=== PATIENT | female | born 1945 | race Caucasian/White ===

== ENCOUNTER → 2022-01-31 10:26 | Outpatient (BNVA) | payer OTHER, SELFPAY | PROVIDERS: PCP Family Medicine; Visit Provider Surgery Vascular Surgery | DX: Z13.89 Encounter for screening for other disorder (principal) ==

== ENCOUNTER 2022-03-06 12:48 | Outpatient (REF) | payer OTHER, SELFPAY ==
--- NOTE | ~2022-03-06 | MR_ITS ---
EXAMINATION: MRI BRAIN WITHOUT CONTRAST CLINICAL INFORMATION: Headache and slurred gait. COMPARISON: CT scan of the head 12/17/2018. TECHNIQUE: Multiplanar MR imaging of the brain was performed without contrast. FINDINGS: There is a tiny chronic cortical infarct involving the right occipital lobe and scattered foci of T2 FLAIR signal hyperintensity visualized throughout the periventricular white matter that most likely represent a chronic manifestation of small vessel ischemia. No acute territorial infarct. No pathological magnetic susceptibility artifact. Intracranial vascular flow voids are maintained. There is no intracranial mass effect or midline shift. No abnormal extra-axial collection. Lateral and third ventricles are normal. No hydrocephalus. Midline structures including the cervicomedullary junction are normal. No acute bone marrow signal changes. There is no mastoid or middle ear effusion. There is mild mucosal thickening within the alveolar recess of the left maxillary sinus. Otherwise no active paranasal sinus disease. Globes and orbits are symmetric. MR/MR head/brain wo con IMPRESSION: There is a chronic cortical infarct involving the right occipital lobe and scattered chronic small vessel ischemic changes within the periventricular white matter. No evidence of acute territorial infarct or hemorrhage. No intracranial mass effect or hydrocephalus.
== END 2022-03-06 12:49 | disposition home or self-care (01) ==
LOC: HO.MRI 12:48
PROVIDERS: Visit Provider Family Medicine
DX: R51.9 Headache, unspecified (principal); Z86.73 Personal history of transient ischemic attack (TIA), and cerebral infarction without residual deficits
CPT/HCPCS: 70551

== ENCOUNTER 2022-03-25 14:42 | Outpatient (REF) | payer MEDICARE, SELFPAY ==
[2022-03-25 15:59] LABS: C Reactive Protein 0.78 mg/dL (< or = 0.50)
[2022-03-25 16:25] LABS: Erythrocyte Sedimentation Rate 27 MM/HR (0-20)
== END 2022-03-25 14:43 | disposition home or self-care (01) ==
LOC: HO.LAB 14:42
PROVIDERS: PCP Family Medicine; Visit Provider Psychiatry & Neurology Neurology
DX: R51.9 Headache, unspecified (principal)
CPT/HCPCS: 36415; 82550; 85652; 86140

== ENCOUNTER 2022-08-10 15:00 | Inpatient (IN) | payer MEDICARE, SELFPAY ==
--- NOTE | ~2022-08-10 | CT_ITS ---
EXAMINATION: CT CHEST WITH CONTRAST CLINICAL INFORMATION: Rule out primary or metastatic malignancy COMPARISON: Previous CT of the abdomen and pelvis 08/10/2022 TECHNIQUE: Multidetector volumetric CT imaging of the chest was obtained after the administration of 65 mL of Omnipaque 350 intravenous contrast without immediate adverse reactions. Axial MIP volume rendering provided. Sagittal and coronal reformatted images were obtained. This CT examination was performed using dose optimization techniques as appropriate, variously including the following: *Automated exposure control *Adjustment of mA and/or kV according to patient size (this includes techniques or standardized protocols for targeted exams where dose is matched to indication/reason for exam; i.e. extremities or head) *Use of iterative reconstruction technique DLP: 108 mGy-cm FINDINGS: LUNGS: There is evidence of emphysema. There is left apical pleural calcification and mild thickening. There are areas of scarring or atelectasis in the posterior right upper lobe axial image 33 series 7 and adjacent to the major fissure axial image 80. There is bilateral lower lobe subsegmental atelectasis adjacent to the small pleural effusion. There is a 3 mm peripheral or subpleural right middle lobe nodule axial image 137 series 7. MEDIASTINUM: The mediastinum is normal. CORONARY ARTERY CALCIFICATION: Mild PLEURA: There are small bilateral pleural effusions. AXILLA: No lymphadenopathy. UPPER ABDOMEN: Gallbladder wall calcification. Atherosclerotic disease. OSSEOUS STRUCTURES: Degenerative changes of the spine. No fracture or bone lesion. CT/CT chest w IV con IMPRESSION: Small bilateral pleural effusions and bilateral lower lobe subsegmental atelectasis. Other areas of scarring or subsegmental atelectasis in the right upper lobe. 3 mm right middle lobe nodule. Emphysema. Fleischner guidelines were followed.
[2022-08-10 15:28] VITALS: BP 152/60; BP 157/98; PULSE 82; PULSE 86; RESP 18; TEMP 37; O2SAT 97; O2SAT 99; BMI 22.4
--- OUTSIDE RECORDS SUMMARY | 2022-08-10 15:50 | XMS_ITS | Continuity of Care Document ---
:1945 Author Organization [facility] Address [address] [place] [address]
[2022-08-10 16:20] LABS: MANUAL DIFF FLAG NO
[2022-08-10 16:21] LABS: Basophils Percent Auto 0.4 % (0-2); Eosinophils Absolute Auto 0.1 X10*3/uL (0.0-0.4); Eosinophils Percent Auto 0.8 % (0-4); Hematocrit 34.8 % (37.0-47.0); Hemoglobin 11.1 g/dl (12.0-16.0); Imm Gran Abs Auto 0.04 X10*3/uL (0.00-0.03); Imm Gran Pct Auto 0.4 % (0.0-0.4); Lymphocytes Absolute Auto 1.7 X10*3/uL (1.2-4.9); Mean Corpuscular HGB Conc 31.9 g/dl (31.0-35.0); Mean Corpuscular Hemoglobin 27.9 pg (27.0-33.0); Mean Corpuscular Volume 87.4 fL (80.0-98.0); Monocytes Absolute Auto 0.9 X10*3/uL (0.1-1.2); Monocytes Percent Auto 8.5 % (2-11); Neutrophils Percent Auto 73.9 % (45-73); Platelet Count 220 X10*3/uL (160-400); Red Blood Count 3.98 X10*6/uL (4.20-5.50); Red Cell Distribution Width 14.4 % (11.0-16.0); White Blood Count 10.8 X10*3/uL (4.8-10.8)
[2022-08-10 16:24] VITALS: BP 152/60; PULSE 82; RESP 18; TEMP 37; O2SAT 97
[2022-08-10 16:36] LABS: COVID-19 Test Negative (Negative)
[2022-08-10 16:45] LABS: Alanine Aminotransferase 6 U/L (0-31); Albumin Level 3.4 g/dL (3.5-5.0); Alkaline Phosphatase 66 U/L (39-117); Anion Gap 16 (12-20); Aspartate Amino Transferase 16 U/L (5-31); Bilirubin Total 0.5 mg/dL (0.0-1.0); Blood Urea Nitrogen 20 mg/dL (9-16); Calcium 8.5 mg/dL (8.4-10.2); Carbon Dioxide 22 mmol/L (22-29); Chloride 102 mmol/L (96-108); Creatinine Clr Calc Pharmacy 36.6; Estimated Glomerular Filt Rate 41; Glucose Random 85 mg/dL (60-115); Magnesium 1.9 mg/dL (1.6-2.6); Potassium 3.7 mmol/L (3.3-5.1); Sodium 136 mmol/L (135-145)
[2022-08-10 16:52] LABS: Troponin-I High Sensitivity 6.7 ng/L (<3.5-17.0)
[2022-08-10] MEDS: 0.9 % Sodium Chloride 1,000 ML 999 ML IV (17:18)
[2022-08-10] MEDS: ondansetron HCL 4 MG/2 ML VIAL IVPUSH ×2 (17:18→21:39)
--- NOTE | 2022-08-10 17:32 | ED.NAVMDI ---
HPI - Nausea/Vomiting/Diarrhea General Chief complaint: Nausea/Vomiting/Diarrhea Stated complaint: NVD Time Seen by Provider: 08/10/22 15:38 Source: patient Mode of arrival: EMS Limitations: no limitations History of Present Illness HPI Narrative: Patient presents to the emergency department for evaluation of nausea vomiting and diarrhea. This is been reportedly ongoing and intermittent since 07/23/2022. However today she felt that the symptoms were significantly worsening. States that yesterday she had multiple episodes of diarrhea as well as vomiting. She is also having generalized weakness with this. Denies any bloody or dark stools, denies any bloody or coffee-ground emesis. Patient's daughter gave her Imodium today and that seems to have calmed the diarrhea. She denies fevers, chills, chest pain, palpitations, shortness of breath, difficulty breathing, dysuria, urinary frequency/urgency/hesitancy, hematuria, numbness or tingling of the extremities. Patient denies any past history of colonoscopy. Denies any family history of colon cancer, however does report that her father had prostate cancer. Related Data Home Medications Medication Instructions Recorded Confirmed aspirin 81 mg tablet,delayed 81 mg DAILY 08/10/22 08/10/22 release Allergies Allergy/AdvReac Type Severity Reaction Status Date / Time clopidogrel [From PLAVIX] Allergy Unknown INTERNAL Unverified 07/20/20 16:12 BLEEDING Bfgoixh-AQV-AvQ Reductase Allergy Unknown LEG Unverified 07/20/20 16:12 Inhibitor STIFFNESS [[id number] REDUCTASE INHIBITOR] Review of Systems Review of Systems: Constitutional : No Weight loss, No Fever, No Chills ENT/Mouth :? No sore throat, No Rhinorrhea Eyes: No Swelling, No Redness Cardiovascular : No Chest Pain, No SOB, No Edema Respiratory : No Cough, No Sputum, No Wheezing Gastrointestinal : Positive Nausea, Positive Vomiting, positive Diarrhea, positive abdominal pain, No Hematochezia, No Melena Genitourinary : No Dysuria, No Urinary Frequency, No Hematuria, No Urgency? Musculoskeletal : No joint pain, No Myalgias, No Joint Swelling Skin : No Skin Lesions, No rash Neuro : No Weakness, No Numbness, No Dizziness, No Headache Psych : No Anxiety/Panic, No Depression Heme/Lymph: No Bruising, No Lymphadenopathy Endocrine : No Polyuria, No Polydipsia Yes all other systems are reviewed and are negative PMFSH Past Medical History Attestation statement: The following information was validated with the patient. Source: old records reviewed Social History Social History Advance Directives: No Advance Directives Information Provided: Yes Physical Exam Vital Signs: Vital Signs: Last Vital Signs Temp 98.6 F 08/10/22 16:24 Pulse 74 08/10/22 21:10 Resp 16 08/10/22 21:10 BP 127/64 08/10/22 21:10 Pulse Ox 95 08/10/22 21:10 O2 Del Method 08/10/22 21:10 BMI result Body Mass Index 22.4 Appearance: Alert.?Oriented to person, place and time. No acute distress.?Normal affect. Eyes: Pupils equal, round and reactive to light.? ENT: Pharynx normal.?? Neck: Normal inspection.? Neck supple.?? CVS: Heart sounds normal. Normal heart rate and rhythm.? Pulses normal.?? Respiratory: No respiratory distress.? Lung sounds clear to auscultation bilaterally?? Abdomen: Soft with right upper quadrant epigastric tenderness, as well as left lower quadrant tenderness upon palpation. Normoactive bowel sounds. No pulsatile mass.?? Skin: Skin warm and dry.? Normal skin color.? ? Extremities: No lower extremity edema.? Neuro: Moves all extremities spontaneously. Sensation intact bilaterally. CN II-XII intact. No focal neuro deficits. Ambulates with normal steady gait. Course Course Course Narrative: Patient is a 77-year-old female with a past medical history of cholelithiasis, carotid artery stenosis, history of CVA, hypercholesterolemia, osteoporosis. She presents to the emergency department for evaluation of nausea vomiting and diarrhea. She is overall well-appearing, vital signs stable. Mildly hypertensive but she is afebrile and without tachycardia, hypoxia, or tachypnea. She has significant tenderness upon palpation of abdomen during physical examination. Will obtain CBC to evaluate for leukocytosis/ anemia, CMP and lipase to evaluate for abnormal electrolytes /abnormal renal function/ abnormal hepatic/biliary function, EKG and troponin to evaluate for ischemia/ACS, CT of the abdomen and pelvis to exclude cholecystitis, bowel obstruction, diverticulitis, or additional intra-abdominal pathology, and Urinalysis. Will trial Zofran IV for nausea, morphine IV for pain, and 1 L normal saline IV. Reevaluation(s) Reevaluation #1: CBC reveals no leukocytosis, there is a mild normocytic anemia. CMP is overall unremarkable. Troponin 6.0, EKG reveals normal sinus rhythm, no ST elevation, no ST depression, T-wave inversion in inferior and anterior leads nonspecific at this time. Only comparison is from December [address] elevations in V4-V6 were present, not appears though patient was transferred to [facility], she was admitted inpatient to telemetry floor she was asymptomatic outside of abdominal pain at that time. Suspect that the T-wave inversions noticed at this time are from prior cardiac event, as opposed to acute ACS, No active chest pain at this time, however will obtain delta troponin. CT of the abdomen and pelvis reveals lobular diffuse masslike thickening of the cecum and ileocecal valve causing a partial small bowel obstruction with concern for colonic neoplasm, and patient developing a porcelain gallbladder. Consult and with General surgery on-call Dr. Linares, who recommends GI consultation and hospital admission, advised that if patient has vomiting and NG tube should be placed. At this time she has not had any vomiting today by her report, therefore will defer NG tube at this time. Patient and daughter were updated on the findings at this time. Time: 19:02 Reevaluation #2: Spoke with hospitalist, patient admitted to Medicine Service under Dr. Mac. MDM - Nausea/Vomiting/Diarrhea Medical Records Attestation: I reviewed the patient's medical records. Lab Data Attestation: I reviewed the patient's lab results. Result diagrams: 08/10/22 16:15 08/10/22 16:15 Labs: Lab Results 08/10/22 08/10/22 08/10/22 Range/Units 16:15 16:15 16:15 WBC 10.8 (4.8-10.8) X10*3/uL RBC 3.98 L (4.20-5.50) X10*6/uL Hgb 11.1 L (12.0-16.0) g/dl Hct 34.8 L (37.0-47.0) % MCV 87.4 (80.0-98.0) fL MCH 27.9 (27.0-33.0) pg MCHC 31.9 (31.0-35.0) g/dl RDW 14.4 (11.0-16.0) % Plt Count 220 (160-400) X10*3/uL MPV 10.0 (9.4-12.3) fL Immature Gran % (Auto) 0.4 (0.0-0.4) % Neut % (Auto) 73.9 H (45-73) % Lymph % (Auto) 16.0 L (20-40) % [place] % (Auto) 8.5 (2-11) % Eos % (Auto) 0.8 (0-4) % Baso % (Auto) 0.4 (0-2) % Lymph # (Auto) 1.7 (1.2-4.9) X10*3/uL [place] # (Auto) 0.9 (0.1-1.2) X10*3/uL Eos # (Auto) 0.1 (0.0-0.4) X10*3/uL Baso # (Auto) 0.0 (0.0-0.2) X10*3/uL Abs Immat Gran (auto) 0.04 H (0.00-0.03) X10*3/uL Absolute Neuts (auto) 8.0 (2.0-8.3) x10*3/uL Absolute Nucleated RBC 0.000 (0.0-0.012) X10*3/uL Nucleated RBC % (auto) 0.0 (0.0-0.2) /100WBC Sodium 136 (135-145) mmol/L Potassium 3.7 (3.3-5.1) mmol/L Chloride 102 (96-108) mmol/L Carbon Dioxide 22 (22-29) mmol/L Anion Gap 16 (12-20) BUN 20 H (9-16) mg/dL Creatinine 1.27 (0.5-1.4) mg/dL Estim Creat Clear Calc 36.6 Estimated GFR 41 Random Glucose 85 (60-115) mg/dL Calcium 8.5 (8.4-10.2) mg/dL Magnesium 1.9 (1.6-2.6) mg/dL Total Bilirubin 0.5 (0.0-1.0) mg/dL AST 16 (5-31) U/L ALT 6 (0-31) U/L Alkaline Phosphatase 66 (39-117) U/L Troponin I High Sens (<3.5-17.0) ng/L Total Protein 6.0 L (6.5-8.0) g/dL Albumin 3.4 L (3.5-5.0) g/dL Prealbumin 11.0 L (20-40) mg/dL Lipase 8 (8-78) U/L COVID-19 ([facility]) Negative (Negative) COVID-19 Clin Com See Note 08/10/22 08/10/22 Range/Units 16:15 19:03 WBC (4.8-10.8) X10*3/uL RBC (4.20-5.50) X10*6/uL Hgb (12.0-16.0) g/dl Hct (37.0-47.0) % MCV (80.0-98.0) fL MCH (27.0-33.0) pg MCHC (31.0-35.0) g/dl RDW (11.0-16.0) % Plt Count (160-400) X10*3/uL MPV (9.4-12.3) fL Immature Gran % (Auto) (0.0-0.4) % Neut % (Auto) (45-73) % Lymph % (Auto) (20-40) % [place] % (Auto) (2-11) % Eos % (Auto) (0-4) % Baso % (Auto) (0-2) % Lymph # (Auto) (1.2-4.9) X10*3/uL [place] # (Auto) (0.1-1.2) X10*3/uL Eos # (Auto) (0.0-0.4) X10*3/uL Baso # (Auto) (0.0-0.2) X10*3/uL Abs Immat Gran (auto) (0.00-0.03) X10*3/uL Absolute Neuts (auto) (2.0-8.3) x10*3/uL Absolute Nucleated RBC (0.0-0.012) X10*3/uL Nucleated RBC % (auto) (0.0-0.2) /100WBC Sodium (135-145) mmol/L Potassium (3.3-5.1) mmol/L Chloride (96-108) mmol/L Carbon Dioxide (22-29) mmol/L Anion Gap (12-20) BUN (9-16) mg/dL Creatinine (0.5-1.4) mg/dL Estim Creat Clear Calc Estimated GFR Random Glucose (60-115) mg/dL Calcium (8.4-10.2) mg/dL Magnesium (1.6-2.6) mg/dL Total Bilirubin (0.0-1.0) mg/dL AST (5-31) U/L ALT (0-31) U/L Alkaline Phosphatase (39-117) U/L Troponin I High Sens 6.7 8.5 (<3.5-17.0) ng/L Total Protein (6.5-8.0) g/dL Albumin (3.5-5.0) g/dL Prealbumin (20-40) mg/dL Lipase (8-78) U/L COVID-19 ([facility]) (Negative) COVID-19 Clin Com Imaging Data CT scan - abdomen: Radiologist's impression: CT/CT abdomen pelvis w IV con IMPRESSION: ? 1. Lobular diffuse masslike thickening of the cecum and ileocecal valve causing a partial small bowel obstruction.? This is concerning for colonic neoplasm. ? 2. Developing porcelain gallbladder. ECG Data Attestation: I personally reviewed and interpreted this ECG as follows: ECG interpretation date: 08/10/22 Prior ECG tracings: available for review Interpretation: Rate: 75 Rhythm:? Normal sinus rhythm Normal P waves.? Normal ULISES.?? Normal QRS complex.?? ST T wave :??T-wave inversion in anterior lead V3-V4 visual inferior lead II, III, aVF qTC: 435 prior studies: December 2018? The study has been interpreted contemporaneously by me. Discharge Plan Discharge Clinical Impression: Partial small bowel obstruction, Porcelain gallbladder Patient Disposition: Admitted As Inpatient
[2022-08-10] MEDS: iohexoL 350 MG/ML 100 ML INFUS..BTL IV (17:48)
[2022-08-10 18:23] VITALS: RESP 18
[2022-08-10 18:23] LABS: Lipase 8 U/L (8-78)
[2022-08-10] MEDS: Morphine Sulfate 4 MG/ML CARTRIDGE 2 MG IVPUSH (18:23)
--- NOTE | 2022-08-10 18:43 | PC.NURSE ---
pt requests friend Sudha Berumen to be called ([phone]) with updates.
[2022-08-10 19:29] LABS: Troponin-I High Sensitivity 8.5 ng/L (<3.5-17.0)
[2022-08-10 21:06] VITALS: BP 127/64; PULSE 74; RESP 16; O2SAT 95
[2022-08-10 21:10] VITALS: BP 127/64; PULSE 74; RESP 16; O2SAT 95
--- NOTE | 2022-08-10 21:11 | PM.IMHP ---
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 peripheral artery ds s/p left carotid endarterectomy presents to the hospital with complaints of loss of appetite as well as nausea vomiting. Patient reports that her symptoms started on the 23 of July where she started having significant nausea, and dry heaving and inability to eat. She reports that she was mostly on liquids water and sometimes some wall falls but unable to eat much else due to the significant nausea. She reports that her symptoms slightly improved but returned significantly worse on day of presentation with nausea and several episodes of vomiting the night prior, she reports generalized diffuse abdominal pain, reports no constipation and has been passing small amount of stool, denies having any fever chills, reports no history of colonoscopy. Reports family history of prostate cancer in her father. Reports significant weight loss as a result of her inability to eat as well as generalized weakness that was getting worse and worse every day. Patient denies any headache no change in vision, no chest pain, no palpitations, no urinary symptoms and no extremity edema. On arrival to the ED patient hemodynamically stable with slightly elevated blood pressure Labs are significant for WBC count of 10.8, hemoglobin of 11.1, hematocrit 34.8, labs otherwise unremarkable Abdomen pelvic CT shows lobular diffuse masslike thickening of the cecum and ileocecal valve causing a partial small-bowel obstruction, this is concerning for colonic neoplasm. Developing porcelain gallbladder General surgery was consulted by ED, recommended GI evaluation Review of Systems Review of Systems: Yes all other systems are reviewed and are negative [facility] Medical History (Updated 08/11/22 @ 06:54 by Jayro Mac MD) Blind right eye CAD (coronary artery disease) (11/07/08) History of cholelithiasis History of CVA (cerebrovascular accident) HLD (hyperlipidemia) (08/17/08) Family History (Updated 08/11/22 @ 06:53 by Jayro Mac MD) Father Prostate cancer Surgical History (Updated 08/11/22 @ 06:53 by Jayro Mac MD) No pertinent past surgical history Social History (Updated 08/11/22 @ 06:53 by Jayro Mac MD) Alcohol intake: former Patient Tobacco Use Status: Former Tobacco user Use of substances other than those prescribed or required for medical reasons: No Advance Directives: No Advance Directives Information Provided: Yes Meds Allergies Allergy/AdvReac Type Severity Reaction Status Date / Time clopidogrel [From PLAVIX] Allergy Unknown INTERNAL Unverified 07/20/20 16:12 BLEEDING Wftoqri-UEK-GpQ Reductase Allergy Unknown LEG Unverified 07/20/20 16:12 Inhibitor STIFFNESS [[id number] REDUCTASE INHIBITOR] Active Medications: Current Medications Acetaminophen (Acetaminophen 325 Mg Tablet) 650 mg PO Q6H PRN PRN Reason: Pain, Mild (Pain Scale 1-3) Heparin Sodium (Porcine) (Heparin Sodium,Porcine 5,000 Unit/Ml Vial) 5,000 unit SUBCUT Q12H ROBIN Lactated Ringer's (Lr) 1,000 mls @ 100 mls/hr IVCONT .Q10H ROBIN Morphine Sulfate (Morphine Sulfate 4 Mg/Ml Cartridge) 4 mg IVPUSH Q4H PRN; Protocol PRN Reason: Pain, Severe (Pain Scale 7-10) Ondansetron HCl (Ondansetron Hcl 4 Mg/2 Ml Vial) 4 mg IVPUSH Q8H PRN PRN Reason: Nausea and Vomiting Pharmacy Consult (Consult Rx Perform Med Rec) 1 each MISCELLANE ONCE PRN PRN Reason: Consult order Sodium Chloride (0.9 % Sodium Chloride Flush 3 Ml Syringe) 3 ml IVFLUSH QSHIFT [facility] Home Medications Medication Instructions Recorded Confirmed Last Taken Type aspirin 81 mg tablet,delayed 81 mg DAILY 08/10/22 08/10/22 Unknown History release Physical Exam Vital Signs and Narrative: Vital Signs: Last Vital Signs Temp 98.6 F 08/10/22 16:24 Pulse 74 08/10/22 21:10 Resp 16 08/10/22 21:10 BP 127/64 08/10/22 21:10 Pulse Ox 95 08/10/22 21:10 O2 Del Method 08/10/22 21:10 BMI result Body Mass Index 22.4 Results Labs CBC and Chem 7: 08/11/22 06:20 08/10/22 16:15 Labs: Laboratory Results - last 24 hr 08/10/22 08/10/22 08/10/22 16:15 16:15 16:15 MCV 87.4 MCH 27.9 MCHC 31.9 RDW 14.4 Plt Count 220 MPV 10.0 Immature Gran % (Auto) 0.4 Neut % (Auto) 73.9 H Lymph % (Auto) 16.0 L [place] % (Auto) 8.5 Eos % (Auto) 0.8 Baso % (Auto) 0.4 Lymph # (Auto) 1.7 [place] # (Auto) 0.9 Eos # (Auto) 0.1 Baso # (Auto) 0.0 Abs Immat Gran (auto) 0.04 H Absolute Neuts (auto) 8.0 Absolute Nucleated RBC 0.000 Nucleated RBC % (auto) 0.0 Anion Gap 16 Estim Creat Clear Calc 36.6 Estimated GFR 41 Random Glucose 85 Calcium 8.5 Magnesium 1.9 Total Bilirubin 0.5 AST 16 ALT 6 Alkaline Phosphatase 66 Troponin I High Sens Total Protein 6.0 L Albumin 3.4 L Lipase 8 COVID-19 ([facility]) Negative COVID-19 Clin Com See Note 08/10/22 08/10/22 16:15 19:03 MCV MCH MCHC RDW Plt Count MPV Immature Gran % (Auto) Neut % (Auto) Lymph % (Auto) [place] % (Auto) Eos % (Auto) Baso % (Auto) Lymph # (Auto) [place] # (Auto) Eos # (Auto) Baso # (Auto) Abs Immat Gran (auto) Absolute Neuts (auto) Absolute Nucleated RBC Nucleated RBC % (auto) Anion Gap Estim Creat Clear Calc Estimated GFR Random Glucose Calcium Magnesium Total Bilirubin AST ALT Alkaline Phosphatase Troponin I High Sens 6.7 8.5 Total Protein Albumin Lipase COVID-19 ([facility]) COVID-19 Clin Com Imaging Radiologist's Impressions: Impressions Abdomen/Pelvis CT 08/10/22 17:53 IMPRESSION: 1. Lobular diffuse masslike thickening of the cecum and ileocecal valve causing a partial small bowel obstruction. This is concerning for colonic neoplasm. 2. Developing porcelain gallbladder. Fleischner guidelines were followed. Assessment and Plan (1) Partial small bowel obstruction: Status: Acute (2) Colonic mass: Status: Acute (3) Anorexia: Status: Acute (4) Nausea & vomiting: Status: Acute (5) Porcelain gallbladder: Status: Acute Plan 89-year-old female with past medical history of CAD, hypercholesterolemia, history of cholelithiasis presents to the hospital with complaints of nausea vomiting, and and decreased oral intake found to have following # partial small bowel obstruction - likely secondary to mass like colonic mass concerning for malignancy - patient has no history colonoscopies in the past - at this time will make NPO - GI consult - general surgery consulted # colonic mass - concerning for malignancy - GI consulted # acute anorexia - secondary to above - IV fluids - GI on consult # nausea vomiting - secondary to small-bowel obstruction - will treat with IV fluid - antiemetics # porcelain gallbladder - history of cholelithiasis - no evidence of infection - general surgery consult Patient reports taking no other medication but aspirin, in regards to her documented history of CAD, as well hypercholesterolemia, this time will monitor DVT prophylaxis: Heparin subQ Pt will require a minimum 2 night hospital stay for further evaluation of colonic mass, as well as partial small-bowel obstruction as well as intractable nausea and vomiting as well as anorexia this cannot be managed outpatient Quality Stroke Does the patient have a stroke diagnosis?: No VTE Prior VTE?: No VTE Risk Level:: Medical - moderate - high VTE Device Contraindication: Treatment Not Indicated VTE Drug Contraindication: N/A - Med Ordered
--- NOTE | 2022-08-10 21:20 | PC.NURSE ---
Nurse to nurse report given to karon Amaral RN. Patient to be transferred to overflow unit. Dr. Mac notified, medication reconciliation completed.
[2022-08-10 21:32] VITALS: BP 134/59; PULSE 74; RESP 18; TEMP 36.3; O2SAT 97
[2022-08-10] MEDS: Morphine Sulfate 4 MG/ML CARTRIDGE IVPUSH (21:38)
[2022-08-10] MEDS: Heparin Sodium,Porcine 5,000 UNIT/ML VIAL 5000 UNIT SUBCUT (21:38)
[2022-08-10] MEDS: Lactated Ringers 1,000 ML 100 ML IVCONT (21:38)
--- NOTE | 2022-08-10 22:36 | PC.NURSE ---
patient alert and oriented x4. stated she was having nausea with abd pain. prn zofran and morphine admin with positive effect. instructed on use of call guzman, verbalized understanding. will continue to do hourly rounds..
[2022-08-11] VITALS (7 sets, daily range): BP systolic 120–167; BP diastolic 63–80; PULSE 72–80; RESP 16–19; TEMP 36.4–37.1; O2SAT 92–95
[2022-08-11] MEDS: ondansetron HCL 4 MG/2 ML VIAL IVPUSH ×2 (05:07→12:28)
[2022-08-11 06:25] LABS: MANUAL DIFF FLAG NO
[2022-08-11 06:33] LABS: Basophils Absolute Auto 0.1 X10*3/uL (0.0-0.2); Basophils Percent Auto 0.7 % (0-2); Eosinophils Absolute Auto 0.1 X10*3/uL (0.0-0.4); Eosinophils Percent Auto 1.5 % (0-4); Hematocrit 34.8 % (37.0-47.0); Hemoglobin 10.9 g/dl (12.0-16.0); Imm Gran Abs Auto 0.01 X10*3/uL (0.00-0.03); Imm Gran Pct Auto 0.1 % (0.0-0.4); Lymphocytes Absolute Auto 1.2 X10*3/uL (1.2-4.9); Lymphocytes Percent Auto 15.4 % (20-40); Mean Corpuscular HGB Conc 31.3 g/dl (31.0-35.0); Mean Corpuscular Hemoglobin 27.7 pg (27.0-33.0); Mean Corpuscular Volume 88.3 fL (80.0-98.0); Mean Platelet Volume 10.4 fL (9.4-12.3); Monocytes Absolute Auto 0.7 X10*3/uL (0.1-1.2); Monocytes Percent Auto 9.5 % (2-11); Neutrophils Absolute Auto 5.5 x10*3/uL (2.0-8.3); Neutrophils Percent Auto 72.8 % (45-73); Platelet Count 194 X10*3/uL (160-400); Red Blood Count 3.94 X10*6/uL (4.20-5.50); Red Cell Distribution Width 14.6 % (11.0-16.0); White Blood Count 7.5 X10*3/uL (4.8-10.8)
[2022-08-11 06:50] LABS: Anion Gap 13 (12-20); Blood Urea Nitrogen 14 mg/dL (9-16); Calcium 8.5 mg/dL (8.4-10.2); Carbon Dioxide 24 mmol/L (22-29); Chloride 106 mmol/L (96-108); Creatinine Clr Calc Pharmacy 38.4; Estimated Glomerular Filt Rate 43; Glucose Random 81 mg/dL (60-115); Potassium 3.8 mmol/L (3.3-5.1); Sodium 139 mmol/L (135-145)
--- NOTE | 2022-08-11 07:13 | PC.NURSE ---
Assumed care for this pt at this time
--- NOTE | 2022-08-11 07:19 | PHA.MEDREC ---
Pharmacy Consult ? Medication Reconciliation Pharmacy has completed the medication reconciliation.
[2022-08-11] MEDS: Lactated Ringers 1,000 ML 100 ML IVCONT ×2 (08:46→17:13)
[2022-08-11] MEDS: Heparin Sodium,Porcine 5,000 UNIT/ML VIAL 5000 UNIT SUBCUT ×2 (08:50→23:43)
--- NOTE | 2022-08-11 09:51 | PM.CNGS ---
History of Present Illness Consult details Consult date: 08/11/22 Reason for consult: abdominal pain Narrative: The patient is a 77-year-old woman with a history of vascular disease who is admitted to the hospitalist service and seen by request of the emergency room staff because of abdominal bloating and vomiting. CT of the abdomen and pelvis showed concern for a cecal mass and partial small-bowel obstruction. Patient reports she has never had a colonoscopy. She reports that on July 23, she had acute onset of abdominal pain with nausea and vomiting and diarrhea. This improved over several days but then returned yesterday and she came to the emergency department. She is unaware of any personal or family history of GI malignancy but does endorse a family history of melanoma and lymphoma, as well as cardiac disease. She reports weight loss but is unable to quantify the amount of weight loss; she does note that her appetite has been down over the past few weeks. Review of Systems Review of Systems: Yes all other systems are reviewed and are negative Constitutional: Constitutional: Reports as per [facility] Past Medical History Medical History (Updated 08/11/22 @ 09:57 by Sagar Linares MD) Blind right eye CAD (coronary artery disease) (11/07/08) History of cholelithiasis History of CVA (cerebrovascular accident) HLD (hyperlipidemia) (08/17/08) Family History Family History (Updated 08/11/22 @ 06:53 by Jayro Mac MD) Father Prostate cancer Surgical History Surgical History (Updated 08/11/22 @ 06:53 by Jayro Mac MD) No pertinent past surgical history Social History Social History (Updated 08/11/22 @ 06:53 by Jayro Mac MD) Alcohol intake: former Patient Tobacco Use Status: Former Tobacco user Use of substances other than those prescribed or required for medical reasons: No Advance Directives: No Advance Directives Information Provided: Yes Meds Allergies Allergy/AdvReac Type Severity Reaction Status Date / Time clopidogrel [From PLAVIX] Allergy Unknown INTERNAL Unverified 07/20/20 16:12 BLEEDING [id number] Reductase Allergy Unknown LEG Unverified 07/20/20 16:12 Inhibitor STIFFNESS [[id number] REDUCTASE INHIBITOR] Active Medications: Current Medications Acetaminophen (Acetaminophen 325 Mg Tablet) 650 mg PO Q6H PRN PRN Reason: Pain, Mild (Pain Scale 1-3) Heparin Sodium (Porcine) (Heparin Sodium,Porcine 5,000 Unit/Ml Vial) 5,000 unit SUBCUT Q12H [facility] Last Admin: 08/11/22 08:50 Dose: 5,000 unit Lactated Ringer's (Lr) 1,000 mls @ 100 mls/hr IVCONT .Q10H [facility] Last Admin: 08/11/22 08:46 Dose: 100 mls/hr Morphine Sulfate (Morphine Sulfate 4 Mg/Ml Cartridge) 4 mg IVPUSH Q4H PRN; Protocol PRN Reason: Pain, Severe (Pain Scale 7-10) Last Admin: 08/10/22 21:38 Dose: 4 mg Ondansetron HCl (Ondansetron Hcl 4 Mg/2 Ml Vial) 4 mg IVPUSH Q8H PRN PRN Reason: Nausea and Vomiting Last Admin: 08/11/22 05:07 Dose: 4 mg Pharmacy Consult (Consult Rx Perform Med Rec) 1 each MISCELLANE ONCE PRN PRN Reason: Consult order Sodium Chloride (0.9 % Sodium Chloride Flush 3 Ml Syringe) 3 ml IVFLUSH QSHIFT [facility] Last Admin: 08/11/22 08:47 Dose: Not Given Home Medications Medication Instructions Recorded Confirmed Last Taken Type aspirin 81 mg tablet,delayed 81 mg DAILY 08/10/22 08/10/22 Unknown History release Physical Exam Vital Signs: Vital Signs: Last Vital Signs Temp 98.2 F 08/11/22 08:32 Pulse 78 08/11/22 08:32 Resp 16 08/11/22 08:32 BP 150/63 H 08/11/22 08:32 Pulse Ox 95 08/11/22 08:32 O2 Del Method 08/11/22 08:32 BMI result Body Mass Index 22.4 The patient is non-toxic & in good spirits NC/AT, PERRLA, EOMI Mood, affect & judgment all appear appropriate Sclera anicteric conjunctiva pink and moist Oropharynx is clear with no aphthous ulcers, Mallampati class 2, mucous membranes moist Neck is supple with no masses, adenopathy or bruits Heart is regular, normal S1-S2 with 2-3/6 WARD murmur Lungs are clear and equal anteriorly with no audible wheezing, rubs or dullness to percussion Abdomen is overweight with no demonstrable hernias. No HSM, rebound, rigidity, guarding, masses or bruits are present. Rectal exam is deferred Skin has good turgor and is free of rashes Extremities free of cyanosis clubbing edema Results Labs Result diagrams: 08/11/22 06:20 08/11/22 06:20 Labs: Abnormal lab results 08/10/22 08/10/22 08/11/22 Range/Units 16:15 16:15 06:20 RBC 3.98 L 3.94 L (4.20-5.50) X10*6/uL Hgb 11.1 L 10.9 L (12.0-16.0) g/dl Hct 34.8 L 34.8 L (37.0-47.0) % Neut % (Auto) 73.9 H (45-73) % Lymph % (Auto) 16.0 L 15.4 L (20-40) % Abs Immat Gran (auto) 0.04 H (0.00-0.03) X10*3/uL BUN 20 H (9-16) mg/dL Total Protein 6.0 L (6.5-8.0) g/dL Albumin 3.4 L (3.5-5.0) g/dL Prealbumin 11.0 L (20-40) mg/dL Short CBC 08/10/22 08/11/22 Range/Units 16:15 06:20 WBC 10.8 7.5 (4.8-10.8) X10*3/uL Hgb 11.1 L 10.9 L (12.0-16.0) g/dl Hct 34.8 L 34.8 L (37.0-47.0) % Plt Count 220 194 (160-400) X10*3/uL BMP 08/10/22 08/11/22 16:15 06:20 Sodium 136 139 Potassium 3.7 3.8 Chloride 102 106 Carbon Dioxide 22 24 BUN 20 H 14 Creatinine 1.27 1.21 Calcium 8.5 8.5 Liver Function 08/10/22 Range/Units 16:15 Total Bilirubin 0.5 (0.0-1.0) mg/dL AST 16 (5-31) U/L ALT 6 (0-31) U/L Alkaline Phosphatase 66 (39-117) U/L Albumin 3.4 L (3.5-5.0) g/dL All other labs normal. CEA is markedly elevated at [address] scan report/results: report reviewed and image reviewed CT scan - pelvis: report reviewed and image reviewed Assessment and Plan (1) Partial small bowel obstruction: Status: Acute (2) Colonic mass: Status: Acute (3) Anorexia: Status: Acute (4) Nausea & vomiting: Status: Acute (5) Porcelain gallbladder: Status: Acute (6) Heart murmur: Status: Acute (7) HLD (hyperlipidemia): Status: Acute (8) History of CVA (cerebrovascular accident): Status: Acute (9) CAD (coronary artery disease): Status: Acute (10) Anticoagulated: Status: Acute Plan Cecal mass and elevated CEA are consistent with malignancy. By my interpretation, the rectosigmoid also appears abnormal on CT scan and a colonoscopy is in order to better direct an operative plan. Continue NPO, IV fluids. Recommend nasogastric tube if the patient reports more distension/vomiting. Hold Plavix until GI has assess the patient and performed colonoscopy. Will follow Procedures Date of Service Date of Service: 08/11/22
--- NOTE | 2022-08-11 12:17 | HO.PM.IMPN ---
Subjective Subjective Date of Service: 08/11/22 Interval History: the patient was seen and evaluated this morning Laying in bed, complaining of occasional nausea and feeling weak in her lower extremities Denies any vomiting since admission No reported other overnight events. Systemic review: No fever, chills but reporting generalized weakness No chest pain, palpitation No shortness of breath or coughing Reporting nausea with no vomiting No urinary symptoms No any rash or wounds Physical Exam Vital Signs: Vital Signs: Last Vital Signs Temp 98.2 F 08/11/22 08:32 Pulse 78 08/11/22 08:32 Resp 16 08/11/22 08:32 BP 150/63 H 08/11/22 08:32 Pulse Ox 95 08/11/22 08:32 O2 Del Method 08/11/22 08:32 BMI result Body Mass Index 22.4 Const: Other: Constitutional : Alert, interactive, not in distress Neck : Normal inspection, Supple Cardiovascular : RRR, no JVP, no lower extremity edema Respiratory : fair bilateral air entry, no crackles, wheezes or rhonchi Gastrointestinal: soft, lax, Normal bowel sounds, mild tenderness with palpation Skin : Warm, Dry Neurological : Alert & oriented x3, No focal deficit , CN 2-12 within normal Objective Data Active Medications Acetaminophen (Acetaminophen 325 Mg Tablet) 650 mg PO Q6H PRN PRN Reason: Pain, Mild (Pain Scale 1-3) Heparin Sodium (Porcine) (Heparin Sodium,Porcine 5,000 Unit/Ml Vial) 5,000 unit SUBCUT Q12H [facility] Last Admin: 08/11/22 08:50 Dose: 5,000 unit Documented By: LIONEL Lactated Ringer's (Lr) 1,000 mls @ 100 mls/hr IVCONT .Q10H [facility] Stop: 08/11/22 20:00 Last Admin: 08/11/22 08:46 Dose: 100 mls/hr Documented By: LIONEL Morphine Sulfate (Morphine Sulfate 4 Mg/Ml Cartridge) 4 mg IVPUSH Q4H PRN; Protocol PRN Reason: Pain, Severe (Pain Scale 7-10) Last Admin: 08/10/22 21:38 Dose: 4 mg Documented By: AIDAN Ondansetron HCl (Ondansetron Hcl 4 Mg/2 Ml Vial) 4 mg IVPUSH Q8H PRN PRN Reason: Nausea and Vomiting Last Admin: 08/11/22 05:07 Dose: 4 mg Documented By: SHAY Pharmacy Consult (Consult Rx Perform Med Rec) 1 each MISCELLANE ONCE PRN PRN Reason: Consult order Sodium Chloride (0.9 % Sodium Chloride Flush 3 Ml Syringe) 3 ml IVFLUSH QSHIFT [facility] Last Admin: 08/11/22 08:47 Dose: Not Given Documented By: LIONEL Non-Admin Reason: IV Running Labs CBC & Chem 7: 08/11/22 06:20 08/11/22 06:20 Labs: Laboratory Results - last 24 hr 08/10/22 08/10/22 08/10/22 16:15 16:15 16:15 MCV 87.4 MCH 27.9 MCHC 31.9 RDW 14.4 Plt Count 220 MPV 10.0 Immature Gran % (Auto) 0.4 Neut % (Auto) 73.9 H Lymph % (Auto) 16.0 L Hall % (Auto) 8.5 Eos % (Auto) 0.8 Baso % (Auto) 0.4 Lymph # (Auto) 1.7 Hall # (Auto) 0.9 Eos # (Auto) 0.1 Baso # (Auto) 0.0 Abs Immat Gran (auto) 0.04 H Absolute Neuts (auto) 8.0 Absolute Nucleated RBC 0.000 Nucleated RBC % (auto) 0.0 Anion Gap 16 Estim Creat Clear Calc 36.6 Estimated GFR 41 Random Glucose 85 Calcium 8.5 Magnesium 1.9 Total Bilirubin 0.5 AST 16 ALT 6 Alkaline Phosphatase 66 Troponin I High Sens Total Protein 6.0 L Albumin 3.4 L Prealbumin 11.0 L Lipase 8 Carcinoembryonic Ag 1064.00 COVID-19 ([facility]) Negative COVID-19 Clin Com See Note 08/10/22 08/10/22 08/11/22 16:15 19:03 06:20 MCV 88.3 MCH 27.7 MCHC 31.3 RDW 14.6 Plt Count 194 MPV 10.4 Immature Gran % (Auto) 0.1 Neut % (Auto) 72.8 Lymph % (Auto) 15.4 L Hall % (Auto) 9.5 Eos % (Auto) 1.5 Baso % (Auto) 0.7 Lymph # (Auto) 1.2 Hall # (Auto) 0.7 Eos # (Auto) 0.1 Baso # (Auto) 0.1 Abs Immat Gran (auto) 0.01 Absolute Neuts (auto) 5.5 Absolute Nucleated RBC 0.000 Nucleated RBC % (auto) 0.0 Anion Gap Estim Creat Clear Calc Estimated GFR Random Glucose Calcium Magnesium Total Bilirubin AST ALT Alkaline Phosphatase Troponin I High Sens 6.7 8.5 Total Protein Albumin Prealbumin Lipase Carcinoembryonic Ag COVID-19 ([facility]) COVID-19 Clin Com 08/11/22 06:20 MCV MCH MCHC RDW Plt Count MPV Immature Gran % (Auto) Neut % (Auto) Lymph % (Auto) Hall % (Auto) Eos % (Auto) Baso % (Auto) Lymph # (Auto) Hall # (Auto) Eos # (Auto) Baso # (Auto) Abs Immat Gran (auto) Absolute Neuts (auto) Absolute Nucleated RBC Nucleated RBC % (auto) Anion Gap 13 Estim Creat Clear Calc 38.4 Estimated GFR 43 Random Glucose 81 Calcium 8.5 Magnesium Total Bilirubin AST ALT Alkaline Phosphatase Troponin I High Sens Total Protein Albumin Prealbumin Lipase Carcinoembryonic Ag COVID-19 ([facility]) COVID-19 Clin Com Assessment and Plan (1) Partial small bowel obstruction: Status: Acute (2) Colonic mass: Status: Acute Plan 89-year-old female with past medical history of CAD, hypercholesterolemia, history of cholelithiasis presents to the hospital with complaints of nausea vomiting, and and decreased oral intake found to have following # partial small bowel obstruction secondary to mass like colonic mass concerning for malignancy no history colonoscopies in the past Zofran for nausea Keep NPO and advanced diet as tolerated Surgery input appreciated, keep NPO, consider NG tube if vomiting # colonic mass concerning for malignancy with elevated CA To do colonoscopy and get biopsies Hold aspirin Pending GI consult # adult failure to thrive 2/2 anorexia secondary to above IV fluids # porcelain gallbladder history of cholelithiasis no evidence of infection Surgery following DVT prophylaxis: Heparin subQ Pt will require overnight hospital stay for further evaluation of colonic mass, small-bowel obstruction as well as anorexia this cannot be managed outpatient requiring GI and surgery team evaluation and possible endoscopies and surgery. Quality Stroke Does the patient have a stroke diagnosis?: No VTE Prior VTE?: No VTE Risk Level:: Medical - moderate - high VTE Device Contraindication: Treatment Not Indicated VTE Drug Contraindication: N/A - Med Ordered
--- NOTE | 2022-08-11 12:22 | MHC.CM.PN ---
CM spoke with Patient and her Neighbor/Friend/HCP/Sudha @ [phone] and addressed IMM with them. 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 Home self care is the goal and CM has initiated and will follow for dc planning. PCP is DR. Bustamante and Patient has received Moderna/covid vax x2.
--- NOTE | 2022-08-11 14:47 | PM.EVENT ---
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 Based on her clinical history, imaging studies, and current exam, I don't think it would be feasible for her to be able to do a safe or adequate bowel prep. I don't think a colonoscopy would be doable or helpful at this time. Rec: Surgery for treatment and diagnosis. A colonoscopy to R/O other lesions can be done down the road once she has recovered. D/W Dr. Linares. D/W patient in detail and she is comfortable with this plan. Thanks
[2022-08-11] MEDS: Famotidine/PF 20 MG/2 ML VIAL IVPUSH ×2 (15:38→23:45)
--- NOTE | 2022-08-11 17:52 | PC.NURSE ---
Patient noted to have 1 episode of urinary incontinence. Patient bladder scanned and found to have 420ccs and urge but cannot. MD aware, patient refusing heath at this time.
--- NOTE | 2022-08-12 00:24 | CONS_ITS ---
DATE OF SERVICE: 08/11/2022 REASON FOR CONSULTATION: Small bowel obstruction and abnormal CT scan of colon. HISTORY OF PRESENT ILLNESS: This has been obtained from the patient and the medical record. The patient is a 77-year-old female who describes the onset of GI symptoms on July 23. Prior to that, she reports that she was not having any particular GI problems and had enjoyed a good appetite with a fairly regular bowel pattern. She had never had a colonoscopy. Since July 23, she describes persistent problems with nausea, anorexia, some vomiting, and abdominal discomfort with some distention. Due to these persistent symptoms, she came to the ER for evaluation and was admitted. During this time, she has not noticed any hematemesis, coffee-grounds emesis, hematochezia, nor melena. She thinks she has lost at least 10 pounds. She denies any jaundice. She denies any known family history of GI malignancy. There is no family history of inflammatory bowel disease nor celiac disease. Since admission here in the hospital she feels somewhat better, but continues to have some nausea and queasiness , including when she was trying some liquid diet earlier today. She has had no further vomiting. She has been passing some gas but no bowel movements. MEDICATIONS: Medications at home: aspirin 81 mg. Medications here in the hospital include acetaminophen, SQ heparin, morphine p.r.n., and Zofran p.r.n. PAST MEDICAL HISTORY: Right carotid surgery, placement of a stent in the left subclavian artery,, and removal of the left fallopian tube and ovary. She thinks she may have had an IN in the past. She denies any history of stroke, known lung disease, diabetes, nor renal disease. SOCIAL HISTORY: She is a . She is a former smoker. She does not use any alcohol. FAMILY HISTORY: Noncontributory, and specifically negative for GI malignancy PHYSICAL EXAMINATION: GENERAL: The patient is a pleasant, alert female. SKIN: Warm and dry. Anicteric sclerae. Moist mucous membranes. NECK: Supple without lymphadenopathy. CARDIAC: No S1, S2. ABDOMEN: Slightly distended and with mild diffuse tenderness to palpation. Bowel sounds are somewhat diminished and high-pitched. There is no focal mass, rebound, or guarding. EXTREMITIES: Without edema. LABORATORY DATA: White blood cell count 7.5, hemoglobin 10.9, MCV 88, platelets 194,000. Normal electrolytes. BUN 14, creatinine 1.2. Normal LFTs. Albumin 3.4, lipase 8. CEA level 1064. Her CT scan on admission was consistent with a small bowel obstruction in relation to what appears to be a mass in the region of the cecum and ileocecal valve. There is no description of any obvious metastatic disease. 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 At this point, given her ongoing issues with what seems to be at least a component of a small bowel obstruction, I do not think it would be possible nor safe to have her undergo any type of oral bowel prep. Therefore, I do not think a colonoscopy would be feasible from the standpoint of her not having an adequate bowel prep. Also, given the ongoing small bowel obstruction, I think a colonoscopy would be relatively contraindicated anyway. At this point, given the clinical scenario with a strong suspicion of a colonic mass, markedly elevated CEA level, and small bowel obstruction, I would recommend surgical intervention both for therapeutic and diagnostic reasons. I do not think a colonoscopy nor CT colonography would be helpful nor indicated at this time. I would recommend an outpatient colonoscopy further down the road when she has recovered so as to rule out any synchronous polyps or neoplasm. This has been discussed with Dr. Linares. This has been discussed with the patient in detail, and she is comfortable with this plan as well. Given her ongoing small bowel obstruction and nausea, with presumed reflux, I shall put her on an IV H2 marley. Thank you for this consultation. MD GIGI Reagan/CASSI / [id number]
[2022-08-12 03:47] VITALS: BP 134/64; PULSE 73; RESP 18; TEMP 36.7; O2SAT 94
[2022-08-12 06:47] VITALS: BP 163/71; PULSE 70; RESP 18; TEMP 36.1; O2SAT 95
[2022-08-12] MEDS: Lactated Ringers 1,000 ML 100 ML IVCONT ×2 (06:47→18:14)
[2022-08-12 07:04] LABS: Hematocrit 33.5 % (37.0-47.0); Hemoglobin 10.4 g/dl (12.0-16.0); Mean Corpuscular Hemoglobin 27.6 pg (27.0-33.0); Mean Corpuscular Volume 88.9 fL (80.0-98.0); Mean Platelet Volume 10.7 fL (9.4-12.3); Platelet Count 193 X10*3/uL (160-400); Red Blood Count 3.77 X10*6/uL (4.20-5.50); Red Cell Distribution Width 14.3 % (11.0-16.0); White Blood Count 6.3 X10*3/uL (4.8-10.8)
[2022-08-12 07:29] LABS: Blood Urea Nitrogen 10 mg/dL (9-16); Calcium 8.3 mg/dL (8.4-10.2); Creatinine Clr Calc Pharmacy 42.2; Estimated Glomerular Filt Rate 48; Glucose Random 77 mg/dL (60-115)
[2022-08-12 07:43] LABS: Anion Gap 16 (12-20); Carbon Dioxide 23 mmol/L (22-29); Chloride 110 mmol/L (96-108); Potassium 4.7 mmol/L (3.3-5.1); Sodium 144 mmol/L (135-145)
--- NOTE | 2022-08-12 08:38 | PM.PNGS ---
Subjective Subjective Date of Service: 08/12/22 Patient reports: no new complaints and feels better Interval history: The patient is seen with her healthcare provider at the bedside. The patient gave me permission and requested I update her caregiver. The patient reports that she is hungry, passing gas and tolerating clear liquids. She asked about having more food. She otherwise denies interval change including chest pain, difficulty breathing, shortness of breath or neurologic symptoms At the patient's request, I explained to the patient and her caregiver that there is a moderate to large tumor in the cecum that is causing a partial small bowel obstruction. Since this can represent a colorectal cancer, I consult to Gastroenterology for a colonoscopy to exclude synchronous lesions and confirm the diagnosis. However, the partial small-bowel obstruction precludes a bowel prep. See Dr. Flynn is notes. Given this, the option would be a right hemicolectomy which I explained is removing the right half of the colon and I would look or feel the remaining colon but could not guarantee small polyps or other smaller malignancies could be missed. Typically, medical oncology is consulted pre or postoperatively regarding treatment options and a colonoscopy is done 3-6 months after surgery to assess for other pathology. Given that the patient has never had a colonoscopy, and has now disclosed a family history of her mother having rectal polyps, the possibility of encountering an unrecognized synchronous lesion has to be accepted. Physical Exam Vital Signs: Vital Signs: Last Vital Signs Temp 97 F 08/12/22 06:47 Pulse 70 08/12/22 06:47 Resp 18 08/12/22 06:47 BP 163/71 H 08/12/22 06:47 Pulse Ox 95 08/12/22 06:47 O2 Del Method 08/12/22 06:47 BMI result Body Mass Index 22.4 The patient's abdominal exam is improved. She is much less distended with no tympany, no peritoneal sign and no tenderness. On exam she is nontoxic and communicative. She is in surprisingly good spirits Of note, the patient is hard of hearing No focal neurological findings are identified Objective Data Active Medications Acetaminophen (Acetaminophen 325 Mg Tablet) 650 mg PO Q6H PRN PRN Reason: Pain, Mild (Pain Scale 1-3) Famotidine (Famotidine/Pf 20 Mg/2 Ml Vial) 20 mg IVPUSH BID ROBIN Last Admin: 08/11/22 23:45 Dose: 20 mg Documented By: SHAY Heparin Sodium (Porcine) (Heparin Sodium,Porcine 5,000 Unit/Ml Vial) 5,000 unit SUBCUT Q12H [facility] Last Admin: 08/11/22 23:43 Dose: 5,000 unit Documented By: SHAY Lactated Ringer's (Lr) 1,000 mls @ 75 mls/hr IVCONT .[id number] [facility] Stop: 08/13/22 20:00 Last Admin: 08/12/22 06:47 Dose: 100 mls/hr Documented By: SHAY Morphine Sulfate (Morphine Sulfate 4 Mg/Ml Cartridge) 4 mg IVPUSH Q4H PRN; Protocol PRN Reason: Pain, Severe (Pain Scale 7-10) Last Admin: 08/10/22 21:38 Dose: 4 mg Documented By: AIDAN Ondansetron HCl (Ondansetron Hcl 4 Mg/2 Ml Vial) 4 mg IVPUSH Q8H PRN PRN Reason: Nausea and Vomiting Last Admin: 08/11/22 12:28 Dose: 4 mg Documented By: UMBERTO Pharmacy Consult (Consult Rx Perform Med Rec) 1 each MISCELLANE ONCE PRN PRN Reason: Consult order Sodium Chloride (0.9 % Sodium Chloride Flush 3 Ml Syringe) [facility] Last Admin: 08/12/22 00:40 Dose: Not Given Documented By: SHAY Non-Admin Reason: IV Running Labs CBC & Chem 7: 08/12/22 05:44 08/12/22 05:44 Labs: Laboratory Results - last 24 hr 08/12/22 08/12/22 05:44 05:44 MCV 88.9 MCH 27.6 MCHC 31.0 RDW 14.3 Plt Count 193 MPV 10.7 Absolute Nucleated RBC 0.000 Nucleated RBC % (auto) 0.0 Anion Gap 16 Estim Creat Clear Calc 42.2 Estimated GFR 48 Random Glucose 77 Calcium 8.3 L pre-albumin: 11; CEA: 1064 Procedures Date of Service Date of Service: 08/12/22 Progress Note: A&P Assessment and plan (1) Anticoagulated: Status: Acute (2) HLD (hyperlipidemia): Status: Acute (3) History of CVA (cerebrovascular accident): Status: Acute (4) CAD (coronary artery disease): Status: Acute (5) Heart murmur: Status: Acute (6) Nausea & vomiting: Status: Acute (7) Anorexia: Status: Acute (8) Colonic mass: Status: Acute (9) Elevated CEA: Status: Acute (10) Anemia: Status: Acute (11) Protein calorie malnutrition: Status: Acute Plan I spent 57 minutes with the patient and her primary caregiver reviewing available information and options. Greater than 50% of this time was spent counseling about options. I have explained that there is a tumor in the cecum that is likely a colorectal cancer in the setting of an elevated CEA. Ideally, the colon should be cleared by colonoscopy to exclude synchronous lesions, however that is not possible based on GI input. Given this, a right hemicolectomy with possible partial colectomy if other colon cancers are identified intraoperatively would be in order. We did discuss a subtotal colectomy with either ileostomy or ileocolic anastomosis, however I would not endorse this level of aggression without additional data that it would be obtained intraoperatively. The inherent risks of bleeding, infection, cardiopulmonary malfunction and as well as sepsis and were discussed. The patient and her caregiver interested in other nonsurgical options and I had communicated with the hospitalist who has ordered a Medical Oncology consult and I have communicated with Dr. Lowe who is a colorectal surgeon to see if he has other recommendations I am not considering at this time. The option of transfer was also discussed but declined by the patient. Given the patient has a partial small bowel obstruction and is nutritionally depleted, I suspect that non operative chemotherapy preoperatively may be complex/difficult since the patient is already malnourished, however the patient needs this information to make an informed decision. The patient has a pre-albumin of 11; I have ordered Ensure Clear and the patient should be okay to stay on clear liquids at this time. She is advised to notify the nursing staff if she starts feeling bloated, nauseated or vomits. Patient is also anemic which is likely secondary to the cecal mass. The patient and her caregiver encouraged to write down questions and I will return to answer the tomorrow. Time Spent With Patient Time: Total time spent is greater than 50% in coordination of care (as documented) at patient's floor/unit and/or counseling patient: Quality Stroke Does the patient have a stroke diagnosis?: No VTE Prior VTE?: No VTE Risk Level:: Medical - moderate - high VTE Device Contraindication: Treatment Not Indicated VTE Drug Contraindication: N/A - Med Ordered
[2022-08-12] MEDS: Famotidine/PF 20 MG/2 ML VIAL IVPUSH ×2 (09:16→19:29)
[2022-08-12] MEDS: Heparin Sodium,Porcine 5,000 UNIT/ML VIAL 5000 UNIT SUBCUT ×2 (09:16→21:43)
[2022-08-12] MEDS: 0.9 % Sodium Chloride Flush 3 ML SYRINGE IVFLUSH (09:20)
[2022-08-12 11:14] VITALS: BP 148/82; PULSE 75; RESP 18; TEMP 36.9; O2SAT 96
--- NOTE | 2022-08-12 11:38 | P.PNIM_ITS ---
Subjective Subjective Date of Service: 08/12/22 Interval History: the patient was seen and evaluated this morning Laying in bed, passing gas, nausea improved Denies any vomiting since admission No reported other overnight events. Systemic review: No fever, chills but reporting generalized weakness No chest pain, palpitation No shortness of breath or coughing Improved nausea with no vomiting No urinary symptoms No any rash or wounds Physical Exam Vital Signs: Vital Signs: Last Vital Signs Temp 98.4 F 08/12/22 11:14 Pulse 75 08/12/22 11:14 Resp 18 08/12/22 11:14 BP 148/82 H 08/12/22 11:14 Pulse Ox 96 08/12/22 11:14 O2 Del Method 08/12/22 11:14 BMI result Body Mass Index 22.4 Const: Other: Constitutional : Alert, interactive, not in distress Neck : Normal inspection, Supple Cardiovascular : RRR, no JVP, no lower extremity edema Respiratory : fair bilateral air entry, no crackles, wheezes or rhonchi Gastrointestinal: soft, lax, Normal bowel sounds, decrease generalized tenderness with palpation Skin : Warm, Dry Neurological : Alert & oriented x3, No focal deficit , CN 2-12 within normal Objective Data Active Medications Acetaminophen (Acetaminophen 325 Mg Tablet) 650 mg PO Q6H PRN PRN Reason: Pain, Mild (Pain Scale 1-3) Famotidine (Famotidine/Pf 20 Mg/2 Ml Vial) 20 mg IVPUSH BID [facility] Last Admin: 08/12/22 09:16 Dose: 20 mg Documented By: KRISTA Heparin Sodium (Porcine) (Heparin Sodium,Porcine 5,000 Unit/Ml Vial) 5,000 unit SUBCUT Q12H [facility] Last Admin: 08/12/22 09:16 Dose: 5,000 unit Documented By: KRISTA Lactated Ringer's (Lr) 1,000 mls @ 75 mls/hr IVCONT .[id number] [facility] Stop: 08/13/22 20:00 Last Admin: 08/12/22 06:47 Dose: 100 mls/hr Documented By: SHAY Morphine Sulfate (Morphine Sulfate 4 Mg/Ml Cartridge) 4 mg IVPUSH Q4H PRN; Protocol PRN Reason: Pain, Severe (Pain Scale 7-10) Last Admin: 08/10/22 21:38 Dose: 4 mg Documented By: AIDAN Ondansetron HCl (Ondansetron Hcl 4 Mg/2 Ml Vial) 4 mg IVPUSH Q8H PRN PRN Reason: Nausea and Vomiting Last Admin: 08/11/22 12:28 Dose: 4 mg Documented By: UMBERTO Pharmacy Consult (Consult Rx Perform Med Rec) 1 each MISCELLANE ONCE PRN PRN Reason: Consult order Sodium Chloride (0.9 % Sodium Chloride Flush 3 Ml Syringe) 3 ml IVFLUSH QSHIFT [facility]IN Last Admin: 08/12/22 09:20 Dose: 3 ml Documented By: KRISTA Labs CBC & Chem 7: 08/12/22 05:44 08/12/22 05:44 Labs: Laboratory Results - last 24 hr 08/12/22 08/12/22 05:44 05:44 MCV 88.9 MCH 27.6 MCHC 31.0 RDW 14.3 Plt Count 193 MPV 10.7 Absolute Nucleated RBC 0.000 Nucleated RBC % (auto) 0.0 Anion Gap 16 Estim Creat Clear Calc 42.2 Estimated GFR 48 Random Glucose 77 Calcium 8.3 L Assessment and Plan (1) Protein calorie malnutrition: Status: Acute (2) Anemia: Status: Acute (3) Partial small bowel obstruction: Status: Acute (4) Colonic mass: Status: Acute Plan 89-year-old female with past medical history of CAD, hypercholesterolemia, history of cholelithiasis presents to the hospital with complaints of nausea vomiting, and and decreased oral intake found to have following # partial small bowel obstruction secondary to mass like colonic mass concerning for malignancy no history colonoscopies in the past Zofran for nausea Diet advanced to clear liquids GI input appreciated, colonoscopy cannot be done as the patient is obstructed and cannot tolerate colon preparation Surgery input appreciated, consider surgery, patient to think and decide # colonic mass concerning for malignancy with elevated CA Hold aspirin Seems to be heading to surgical option, patient would like to thing if any other options available Pending oncology consult # adult failure to thrive 2/2 anorexia secondary to above IV fluids # porcelain gallbladder history of cholelithiasis no evidence of infection Surgery following DVT prophylaxis: Heparin subQ Pt will require overnight hospital stay for further evaluation of colonic mass, small-bowel obstruction as well as anorexia this cannot be managed outpatient requiring GI and surgery team evaluation pending surgical intervention. Quality Stroke Does the patient have a stroke diagnosis?: No VTE Prior VTE?: No VTE Risk Level:: Medical - moderate - high VTE Device Contraindication: Treatment Not Indicated VTE Drug Contraindication: N/A - Med Ordered
--- NOTE | 2022-08-12 12:40 | PM.PNGS ---
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 in [facility] as per HCP - she has had some worsening memory problems Physical Exam Vital Signs: Vital Signs: Last Vital Signs Temp 98.4 F 08/12/22 11:14 Pulse 75 08/12/22 11:14 Resp 18 08/12/22 11:14 BP 148/82 H 08/12/22 11:14 Pulse Ox 96 08/12/22 11:14 O2 Del Method 08/12/22 11:14 BMI result Body Mass Index 22.4 Const: General: comfortable and no acute distress Orientation/consciousness: patient oriented x3 Neck: Neck: Yes no lymphadenopathy Resp: Auscultation: clear to auscultation bilaterally Cardio: Rhythm: regular rhythm GI: Other: does not appear distended Palpation (GI): Soft to palpation, nontender and no guarding Neuro: General: patient oriented x3 Objective Data Active Medications Acetaminophen (Acetaminophen 325 Mg Tablet) 650 mg PO Q6H PRN PRN Reason: Pain, Mild (Pain Scale 1-3) Famotidine (Famotidine/Pf 20 Mg/2 Ml Vial) 20 mg IVPUSH BID [facility] Last Admin: 08/12/22 09:16 Dose: 20 mg Documented By: KRISTA Heparin Sodium (Porcine) (Heparin Sodium,Porcine 5,000 Unit/Ml Vial) 5,000 unit SUBCUT Q12H [facility] Last Admin: 08/12/22 09:16 Dose: 5,000 unit Documented By: KRISTA Lactated Ringer's (Lr) 1,000 mls @ 75 mls/hr IVCONT .[id number] [facility] Stop: 08/13/22 20:00 Last Admin: 08/12/22 06:47 Dose: 100 mls/hr Documented By: SHAY Morphine Sulfate (Morphine Sulfate 4 Mg/Ml Cartridge) 4 mg IVPUSH Q4H PRN; Protocol PRN Reason: Pain, Severe (Pain Scale 7-10) Last Admin: 08/10/22 21:38 Dose: 4 mg Documented By: AIDAN Ondansetron HCl (Ondansetron Hcl 4 Mg/2 Ml Vial) 4 mg IVPUSH Q8H PRN PRN Reason: Nausea and Vomiting Last Admin: 08/11/22 12:28 Dose: 4 mg Documented By: UMBERTO Pharmacy Consult (Consult Rx Perform Med Rec) 1 each MISCELLANE ONCE PRN PRN Reason: Consult order Sodium Chloride (0.9 % Sodium Chloride Flush 3 Ml Syringe) 3 ml IVFLUSH QSHIFT [facility] Last Admin: 08/12/22 09:20 Dose: 3 ml Documented By: KRISTA Labs CBC & Chem 7: 08/15/22 05:39 08/15/22 05:39 Labs: Laboratory Results - last 24 hr 08/12/22 08/12/22 05:44 05:44 MCV 88.9 MCH 27.6 MCHC 31.0 RDW 14.3 Plt Count 193 MPV 10.7 Absolute Nucleated RBC 0.000 Nucleated RBC % (auto) 0.0 Anion Gap 16 Estim Creat Clear Calc 42.2 Estimated GFR 48 Random Glucose 77 Calcium 8.3 L Procedures Date of Service Date of Service: 08/12/22 Progress Note: A&P Assessment and plan (1) Colonic mass: Status: Acute Assessment and Plan: CT reviewed - large cecal mass, with some proximal SB dilatation c/w PSBO currently comfortable, no tenderness, no signficant distension, passing flatus has never had colonoscopy before elevated CEA 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 in view of signs of obstruction, agree with plan to to right colon resection examine the rest of the colon visually and by palpation intraoperatively as she has not had a colonoscopy in the past CT does not suggest strong evidence of synchronous ds at this time; full colonoscopy should be done after resection once timing medically appropriate no distant mets obvious at this time cardiology eval - pt says she has heart problems , being followed in [facility], has heart murmur exam otherwise benign at this time above discussed extensively with patient and HCP Jocelyne at bedside Time Spent With Patient Time: Total time spent is greater than 50% in coordination of care (as documented) at patient's floor/unit and/or counseling patient: Quality Stroke Does the patient have a stroke diagnosis?: No VTE Prior VTE?: No VTE Risk Level:: Medical - moderate - high VTE Device Contraindication: Treatment Not Indicated VTE Drug Contraindication: N/A - Med Ordered
[2022-08-12 15:17] VITALS: BP 160/78; PULSE 77; RESP 18; TEMP 36.9; O2SAT 95
--- NOTE | 2022-08-12 17:38 | MHC.CLN ---
NUTRITION PATIENT ON CL DIET DUE TO PARTIAL SBO. ADDING ENSURE CLEAR TID TO PROVIDE ADDITIONAL 720 KCALS, 24 G PROTEIN,
[2022-08-12 17:39] VITALS: BMI 22.4
[2022-08-12] MEDS: ondansetron HCL 4 MG/2 ML VIAL IVPUSH (18:13)
[2022-08-12 19:00] VITALS: BP 166/72; PULSE 72; RESP 20; TEMP 36.8; O2SAT 93
[2022-08-12 23:36] VITALS: BP 168/81; PULSE 90; RESP 20; TEMP 36.3; O2SAT 93
[2022-08-13] VITALS (9 sets, daily range): BP systolic 150–184; BP diastolic 59–88; PULSE 75–94; RESP 18–81; TEMP 36.1–36.8; O2SAT 92–96
[2022-08-13] MEDS: Labetalol HCL 100 MG/20 ML VIAL 10 MG IVPUSH (06:43)
[2022-08-13] MEDS: ondansetron HCL 4 MG/2 ML VIAL IVPUSH (06:47)
--- NOTE | 2022-08-13 07:00 | CA_ITS ---
Transthoracic Echocardiogram Patient (Last, First, Middle): Kelly Kingsley, Gender: Female Date of : 1945 Age: 77 Procedure Date: 08/13/2022 Procedure Type: Transthoracic Echocardiogram Location: S3E Height: 170.18 cm Weight: 64.86 kg BSA: 1.75 m2 Heart Rate: 80 bpm BP: 148 / 82 mmHg Acid Crane Operator: SB Referring MD: Anitra Vargsa MD Symptoms: surgical clearance, heart murmur Study Quality: Adequate ECG Rhythm: Sinus Conclusions: - The left ventricular systolic function is normal. The calculated ejection fraction is 64% by biplane method. - The basal inferior, mid inferior, and apical septum segments are hypokinetic. - No obvious valvular pathology seen on this study. Findings Left Ventricle Normal left ventricular cavity size. The left ventricular systolic function is normal. The calculated ejection fraction is 64% by biplane method. There is no evidence of regional wall motion abnormalities. Diastolic function is normal for age. There is moderate septal and moderate basal asymmetric hypertrophy. Wall Motion Rest Echo Findings The basal inferior, mid inferior, and apical septum segments are hypokinetic. Right Ventricle Normal right ventricular cavity size and systolic function. Atria Both atria are normal in size. Aortic Valve The aortic valve was not well visualized. There is no aortic valve stenosis. There is no aortic valve regurgitation. Mitral Valve The mitral valve appears normal. There is trace mitral valve regurgitation. There is no mitral valve stenosis. Pulmonic Valve The pulmonic valve is likely normal. Tricuspid Valve Normal tricuspid valve structure. There is no tricuspid valve regurgitation. Tricuspid regurgitation envelope is inadequate for calculation of right ventricular systolic pressure. Great Vessels The asc aorta is normal in size. Venous The inferior vena cava is normal in size and collapses greater than 50% with inspiration. Pericardium/Pleural There is no evidence of pericardial effusion. Prior Study Comparison No prior study available for comparison. Recommendations, Care & Conclusions No obvious valvular pathology seen on this study. Measurements 2D Linear Measurements IVSd: 0.65 0.6-0.9/0.6-1.0 cm LVIDd: 4.42 3.9-5.3/4.2-5.9 cm LVIDd Index: 2.53 2.4-3.2/2.2-3.1 cm/m2 LVIDs: 2.67 2.0-3.6 cm LVPWd: 0.64 0.7-1.1 cm LA Diam: 3.00 2.7-3.8/3.0-4.0 cm LAIDs Index: 1.71 1.5-2.3 cm/m2 LV Mass: 103.91 67-162/88-224 g LV Mass Index: 59.38 43-95/49-115 g/m2 LVOT Diam: 2.00 3.0+(-)1.3 cm 2D Systolic Function EF 4C: 63.20 >55% EF 2C: 65.90 >55% EF BiP: 64.30 >55% Mitral Valve MV Pk E: 0.90 MV PK A: 1.16 MV Decel Time: 135.00 E/A: 0.80 E'Lateral: 7.94 E'Medial: 6.09 E/E' Med: 14.80 E/E' Lat: 11.30 PHT: 40.00 MVA PHT: 5.50 Decel [place]: 6.66 Aortic Valve AoV Pk Abran: 1.75 AoV Mn Abran: 1.06 AoV VTI: 0.35 AoV Pk Grad: 12.00 Aov Mn Grad: 5.00 DAVID Cont.VTI: 2.25 LVOT LVOT Pk Abran: 1.17 LVOT Mn Abran: 0.78 LVOT VTI: 0.25 LVOT Pk Grad: 5.00 LVOT Mn Grad: 3.00 LVOT Diam: 2.00 LVOT Area: 3.14 Diastolic Function MV Pk E: 0.90 MV Pk A: 1.16 E/A: 0.80 E'Medial: 6.09 E/E' Med: 14.80 E' Laterial: 7.94 E/E' Lat: 11.30 Right Ventricle TAPSE (mm): 27.70 TVS' Abran: 11.20 Tricuspid Valve RA Press: 3.00 Great Vessels Aorta Sinus of Valsalva: 2.70 2.0-3.5 cm Pulmonary Veins Pulm Vein S/D 1.70 Pulmonary Valve PV Pk Abran: 0.91 Peak PV Grad: 3.00 Updated in Other Vendor System with Status of Final Hero Casanova MD electronically signed on 08/13/2022 11:18:29 AM with status of Final
[2022-08-13] MEDS: amLODIPine Besylate 5 MG TABLET PO (08:24)
[2022-08-13] MEDS: 0.9 % Sodium Chloride Flush 3 ML SYRINGE IVFLUSH ×3 (08:24→21:40)
[2022-08-13] MEDS: Famotidine/PF 20 MG/2 ML VIAL IVPUSH ×2 (08:24→21:37)
--- NOTE | 2022-08-13 08:46 | P.PNGS_ITS ---
Subjective Subjective Date of Service: 08/13/22 Patient reports: no new complaints Interval history: The patient is tolerating clear liquids. Her healthcare provider is at the bedside. The patient continues to deny pain, nausea, vomiting or abdominal bloating. She did meet with Dr. Lowe and is interested in both Dr. Lowe and I doing her up operation together. Medical oncology input is pending. Echocardiogram is pending. Physical Exam Vital Signs: Vital Signs: Last Vital Signs Temp 97.9 F 08/13/22 08:00 Pulse 80 08/13/22 08:00 Resp 81 H 08/13/22 06:44 BP 160/88 H 08/13/22 08:00 Pulse Ox 95 08/13/22 08:00 O2 Del Method 08/13/22 08:00 BMI result Body Mass Index 22.4 Patient's abdomen is unchanged from yesterday. There is really no distension or tenderness. Patient is nontoxic and is in good spirits No rebound, rigidity or guarding is noted on the abdominal exam Objective Data Active Medications Acetaminophen (Acetaminophen 325 Mg Tablet) 650 mg PO Q6H PRN PRN Reason: Pain, Mild (Pain Scale 1-3) Amlodipine Besylate (Amlodipine Besylate 5 Mg Tablet) 5 mg PO DAILY [facility]; Protocol Last Admin: 08/13/22 08:24 Dose: 5 mg Documented By: CHRISTY Famotidine (Famotidine/Pf 20 Mg/2 Ml Vial) 20 mg IVPUSH BID [facility] Last Admin: 08/13/22 08:24 Dose: 20 mg Documented By: CHRISTY Heparin Sodium (Porcine) (Heparin Sodium,Porcine 5,000 Unit/Ml Vial) 5,000 unit SUBCUT Q12H [facility] Last Admin: 08/12/22 21:43 Dose: 5,000 unit Documented By: MICAELA Morphine Sulfate (Morphine Sulfate 4 Mg/Ml Cartridge) 4 mg IVPUSH Q4H PRN; Protocol PRN Reason: Pain, Severe (Pain Scale 7-10) Last Admin: 08/10/22 21:38 Dose: 4 mg Documented By: AIDAN Ondansetron HCl (Ondansetron Hcl 4 Mg/2 Ml Vial) 4 mg IVPUSH Q8H PRN PRN Reason: Nausea and Vomiting Last Admin: 08/13/22 06:47 Dose: 4 mg Documented By: MICAELA Pharmacy Consult (Consult Rx Perform Med Rec) 1 each MISCELLANE ONCE PRN PRN Reason: Consult order Sodium Chloride (0.9 % Sodium Chloride Flush 3 Ml Syringe) 3 ml IVFLUSH QSHIFT [facility] Last Admin: 08/13/22 08:24 Dose: 3 ml Documented By: CHRISTY Labs CBC & Chem 7: 08/12/22 05:44 08/12/22 05:44 Procedures Date of Service Date of Service: 08/13/22 Progress Note: A&P Assessment and plan (1) Protein calorie malnutrition: Status: Acute (2) Anemia: Status: Acute (3) Elevated CEA: Status: Acute (4) Anticoagulated: Status: Acute (5) History of CVA (cerebrovascular accident): Status: Acute (6) HLD (hyperlipidemia): Status: Acute (7) CAD (coronary artery disease): Status: Acute (8) Heart murmur: Status: Acute Plan The patient had some questions regarding the need for rehabilitation and support postoperatively. The limitations of not being able to clear her colon via colonoscopy were also discussed. Continue present management. Await echo results and input from Medical Oncology. Will coordinate timing of surgery with Dr. Lowe. Time Spent With Patient Time: Total time spent is greater than 50% in coordination of care (as documented) at patient's floor/unit and/or counseling patient: Quality Stroke Does the patient have a stroke diagnosis?: No VTE Prior VTE?: No VTE Risk Level:: Medical - moderate - high VTE Device Contraindication: Treatment Not Indicated VTE Drug Contraindication: N/A - Med Ordered
[2022-08-13] MEDS: iohexoL 350 MG/ML 100 ML INFUS..BTL IV (09:46)
[2022-08-13] MEDS: Heparin Sodium,Porcine 5,000 UNIT/ML VIAL 5000 UNIT SUBCUT ×2 (09:50→21:38)
--- NOTE | 2022-08-13 10:13 | MHC.CDI.CONC ---
CDI Concurrent Query Documentation Clarification: PHYSICIAN'S DOCUMENTATION REQUEST Date of Query: 08/13/22 1013 Patient Name: Kelly Kingsley Admit Date: 08/10/22 Dear Doctor, A review of the medical record indicates additional documentation may be needed. Please review below and update the documentation accordingly. Clinical Indicators: Documentation includes the diagnosis of malnutrition. Specifics: Risk Factors/Clinical Indicators/Treatments PN 08/12 - Assessment/plan: protein calorie malnutrition N/V/anorexia/FTT, decreased oral intake. Nutrition - Adding ensure to promote KCals. ASPEN Criteria* Acute Illness Chronic Illness Clinical Characteristic Non-Severe (2 or more criteria present) Severe (2 or more criteria present) Non-Severe (2 or more criteria present) Severe (2 or more criteria present) Energy Intake <75% for >7 days <=50% for >=5 days <75% for >=1 month <=75% for >=1 month Weight Loss 1 week 1 ? 2% >2% N/A N/A 1 month 5% >5% 5% >5% 3 months 7.5 % >7.5% 7.5% >7.5% 6 months N/A N/A 10% >10% 1 year N/A N/A 20% >20% Body Fat Mild Moderate Mild Severe Muscle Mass Mild Moderate Mild Severe Fluid Accumulation Mild Moderate to Severe Mild Severe Reduced Marketing Services Manager Strength N/A Measurably Reduced N/A Measurably Reduced *[facility] Hospitalist, 2017 If possible, please provide in your progress notes, additional specificity regarding the severity of the malnutrition using the above information: Mild Moderate Severe Other (please specify) Unable to determine Use of terms such as suspected, likely, concern for, or probable (associated with a specific diagnosis that is being evaluated, monitored, or treated as if it exists) are acceptable and can be coded in the inpatient setting, when documented at the time of discharge. Thank you, Maira Smith [facility], CDIS Extension: [phone] Please use your independent medical judgment in providing your response. THIS QUERY IS PART OF THE PERMANENT MEDICAL RECORD Provider Response: Mild Protein-Calorie Malnutrition
--- NOTE | 2022-08-13 10:31 | P.CONCA_ITS ---
History of Present Illness History of Present Illness Date of Service: 08/13/22 Chief complaint: SBO, ABD Mass Narrative: This is a cardiology consultation regarding preoperative risk stratification for colon cancer surgery. Patient has a history of stress-induced cardiomyopathy in 2019. At that time, she underwent cardiac catheterization but that showed only chronic total occlusion RCA but no significant disease elsewhere. Otherwise, she does have a history of carotid disease and prior endarterectomy as well as peripheral vascular disease. Patient states that she is generally active without any issues. She does not really get chest pains or shortness of breath or in fact any other major cardiac symptoms. Currently, it seems that there is partial small bowel obstruction and there is concern for malignancy from colonic mass. Hence planning surgery. Review of Systems Review of Systems: Yes all other systems are reviewed and are negative Constitutional: Constitutional: Reports as per HPI Eyes: Eyes: Reports as per HPI ENT: Reports as per HPI Cardiovascular: Cardiovascular: Reports as per HPI, Denies acrocyanosis, Denies cool extremities, Denies chest pain, Denies leg edema, Denies lightheadedness, Denies palpitations and Denies dyspnea Respiratory: Respiratory: Reports as per HPI, Reports no additional respiratory complaints and Denies dyspnea Gastrointestinal: Gastrointestinal: Reports as per HPI, Reports no additional gastrointestinal complaints and Reports nausea Genitourinary: Genitourinary: Reports as per HPI Musculoskeletal: Musculoskeletal: Reports no additional musculoskeletal complaints and Reports as per HPI Integumentary/Breasts: Skin/Breast: Reports system reviewed and no additional complaints, except as docu Neurologic: Reports system reviewed and no additional complaints, except as documented and Reports as per HPI Psychiatric: Psychiatric: Reports no additional psychiatric complaints and Reports as per HPI Endocrine: Endocrine: Reports no additional endocrine complaints, Reports as per HPI and Denies palpitations Hematologic/Lymphatic: Hematologic/Lymphatic: Reports no additional hematologic/lymphatic complaints and Reports as per HPI Allergic/Immunologic: Allergic/Immunologic: Reports no additional allergic/immunologic complaints and Reports as per HPI [facility] Past Medical History Medical History (Updated 08/13/22 @ 10:35 by Hero Casanova MD) Blind right eye CAD (coronary artery disease) (11/07/08) History of cholelithiasis History of CVA (cerebrovascular accident) HLD (hyperlipidemia) (08/17/08) Stress-induced cardiomyopathy Family History Family History Father Prostate cancer Surgical History Surgical History No pertinent past surgical history Social History Social History Household Members: None Housing: House Do you presently have visiting nurse or other home services: No Alcohol intake: former Patient Tobacco Use Status: Former Tobacco user service: No Current occupational status: retired Meds Allergies Allergy/AdvReac Type Severity Reaction Status Date / Time clopidogrel [From PLAVIX] Allergy Unknown INTERNAL Unverified 07/20/20 16:12 BLEEDING Funvpje-YWX-FhR Reductase Allergy Unknown LEG Unverified 07/20/20 16:12 Inhibitor STIFFNESS [[id number] REDUCTASE INHIBITOR] Active Medications: Current Medications Acetaminophen (Acetaminophen 325 Mg Tablet) 650 mg PO Q6H PRN PRN Reason: Pain, Mild (Pain Scale 1-3) Amlodipine Besylate (Amlodipine Besylate 5 Mg Tablet) 5 mg PO DAILY [facility]; Protocol Last Admin: 08/13/22 08:24 Dose: 5 mg Famotidine (Famotidine/Pf 20 Mg/2 Ml Vial) 20 mg IVPUSH BID [facility] Last Admin: 08/13/22 08:24 Dose: 20 mg Heparin Sodium (Porcine) (Heparin Sodium,Porcine 5,000 Unit/Ml Vial) 5,000 unit SUBCUT Q12H [facility] Last Admin: 08/13/22 09:50 Dose: 5,000 unit Morphine Sulfate (Morphine Sulfate 4 Mg/Ml Cartridge) 4 mg IVPUSH Q4H PRN; Pro tocol PRN Reason: Pain, Severe (Pain Scale 7-10) Last Admin: 08/10/22 21:38 Dose: 4 mg Ondansetron HCl (Ondansetron Hcl 4 Mg/2 Ml Vial) 4 mg IVPUSH Q8H PRN PRN Reason: Nausea and Vomiting Last Admin: 08/13/22 06:47 Dose: 4 mg Pharmacy Consult (Consult Rx Perform Med Rec) 1 each MISCELLANE ONCE PRN PRN Reason: Consult order Sodium Chloride (0.9 % Sodium Chloride Flush 3 Ml Syringe) 3 ml IVFLUSH QSHIFT [facility] Last Admin: 08/13/22 08:24 Dose: 3 ml Home Medications Medication Instructions Recorded Confirmed Last Taken Type aspirin 81 mg tablet,delayed 81 mg DAILY 08/10/22 08/10/22 Unknown History release Physical Exam Vital Signs: Vital Signs: Last Vital Signs Temp 97.9 F 08/13/22 08:00 Pulse 80 08/13/22 08:00 Resp 81 H 08/13/22 06:44 BP 160/88 H 08/13/22 08:00 Pulse Ox 95 08/13/22 08:00 O2 Del Method 08/13/22 08:00 BMI result Body Mass Index 22.4 Const: General: comfortable and no acute distress Orientation/consciousness: patient oriented x3 HEENT: Other: Unremarkable Head: Yes normal to inspection Neck: Neck: Yes normal visual inspection Chest: Chest palpation & inspection: normal inspection of the chest Resp: Auscultation: clear to auscultation bilaterally Cardio: Palpation: normal PMI Heart sounds: S1 normal heart sound present, S2 normal heart sound present, no gallops, no murmurs and no rubs GI: Palpation (GI): Soft to palpation Back/Spine/Pelvis: Other: unremarkable Skin: General skin exam: no rashes or lesions noted Neuro: General: patient oriented x3 Extrem: General: Yes normal to inspection Psych: Mental Status: mental status grossly normal Objective Labs and Meds Result diagrams: 08/12/22 05:44 08/12/22 05:44 ECG Interpretation: EKG shows sinus rhythm and T inversions in anterior leads as well as inferior leads. EKG from December 2018 shows anterolateral STEMI. Assessment and Plan (1) Preoperative cardiovascular examination: Status: Acute (2) Atherosclerotic cardiovascular disease: Status: Acute (3) Stress-induced cardiomyopathy: Status: Acute Plan Cardiac studies reviewed. Cardiac catheterization 2019 shows chronic total occlusion of right coronary artery. Minimal to mild luminal irregularities elsewhere. Echocardiogram then with LVEF of 35-40% and other findings consistent with stress cardiomyopathy. Subsequent echocardiogram showed recovery of LVEF. Will review the echocardiogram from this admission. Overall, likely going to be at intermediate cardiac risk based on her vascular disease. This risk is unmodifiable. Discussed with Dr. Vargas. Procedures Date of Service Date of Service: 08/13/22
--- NOTE | 2022-08-13 11:02 | HO.PM.IMPN ---
Subjective Subjective Date of Service: 08/13/22 Interval History: the patient was seen and evaluated this morning Laying in bed, feeling hungry, tolerating liquids Report passing gas but no bowel movement No reported other overnight events. Systemic review: No fever, chills but reporting generalized weakness No chest pain, palpitation No shortness of breath or coughing Improved nausea with no vomiting No urinary symptoms No any rash or wounds Physical Exam Vital Signs: Vital Signs: Last Vital Signs Temp 97.9 F 08/13/22 08:00 Pulse 80 08/13/22 10:46 Resp 81 H 08/13/22 06:44 BP 160/88 H 08/13/22 10:46 Pulse Ox 95 08/13/22 10:46 O2 Del Method 08/13/22 08:00 BMI result Body Mass Index 22.4 Const: Other: Constitutional : Alert, interactive, not in distress Neck : Normal inspection, Supple Cardiovascular : RRR, no JVP, no lower extremity edema Respiratory : fair bilateral air entry, no crackles, wheezes or rhonchi Gastrointestinal: soft, lax, Normal bowel sounds, decrease generalized tenderness with palpation Skin : Warm, Dry Neurological : Alert & oriented x3, No focal deficit , CN 2-12 within normal Objective Data Active Medications Acetaminophen (Acetaminophen 325 Mg Tablet) 650 mg PO Q6H PRN PRN Reason: Pain, Mild (Pain Scale 1-3) Amlodipine Besylate (Amlodipine Besylate 5 Mg Tablet) 5 mg PO DAILY [facility]; Protocol Last Admin: 08/13/22 08:24 Dose: 5 mg Documented By: CHRISTY Famotidine (Famotidine/Pf 20 Mg/2 Ml Vial) 20 mg IVPUSH BID [facility] Last Admin: 08/13/22 08:24 Dose: 20 mg Documented By: CHRISTY Heparin Sodium (Porcine) (Heparin Sodium,Porcine 5,000 Unit/Ml Vial) 5,000 unit SUBCUT Q12H [facility] Last Admin: 08/13/22 09:50 Dose: 5,000 unit Documented By: CHRISTY Morphine Sulfate (Morphine Sulfate 4 Mg/Ml Cartridge) 4 mg IVPUSH Q4H PRN; Protocol PRN Reason: Pain, Severe (Pain Scale 7-10) Last Admin: 08/10/22 21:38 Dose: 4 mg Documented By: AIDAN Ondansetron HCl (Ondansetron Hcl 4 Mg/2 Ml Vial) 4 mg IVPUSH Q8H PRN PRN Reason: Nausea and Vomiting Last Admin: 08/13/22 06:47 Dose: 4 mg Documented By: MICAELA Pharmacy Consult (Consult Rx Perform Med Rec) 1 each MISCELLANE ONCE PRN PRN Reason: Consult order Sodium Chloride (0.9 % Sodium Chloride Flush 3 Ml Syringe) 3 ml IVFLUSH QSHIFT [facility] Last Admin: 08/13/22 08:24 Dose: 3 ml Documented By: CHRISTY Labs CBC & Chem 7: 08/12/22 05:44 08/12/22 05:44 Assessment and Plan (1) Protein calorie malnutrition: Status: Acute (2) Partial small bowel obstruction: Status: Acute (3) Colonic mass: Status: Acute Plan 89-year-old female with past medical history of CAD, hypercholesterolemia, history of cholelithiasis presents to the hospital with complaints of nausea vomiting, and and decreased oral intake found to have following # partial small bowel obstruction secondary to mass like colonic mass concerning for malignancy no history colonoscopies in the past Zofran for nausea Diet advanced to clear liquids GI input appreciated, colonoscopy cannot be done as the patient is obstructed and cannot tolerate colon preparation Surgery input appreciated, plan for surgical intervention Cardiology following for preop evaluation Pending echo # colonic mass concerning for malignancy with elevated CEA, no obvious lymph nodes enlargement or metastasis noted Hold aspirin Oncology input appreciated, check CT scan of the chest to rule out metastasis # mild protein calorie malnutrition with adult failure to thrive 2/2 anorexia secondary to above, likely malignancy related Cannot tolerate Ensure Hold Gentle IV fluids # porcelain gallbladder history of cholelithiasis no evidence of infection Surgery following DVT prophylaxis: Heparin subQ Pt will require overnight hospital stay for further evaluation of colonic mass, small-bowel obstruction as well as anorexia this cannot be managed outpatient requiring GI and surgery team evaluation pending surgical intervention. Quality Stroke Does the patient have a stroke diagnosis?: No VTE Prior VTE?: No VTE Risk Level:: Medical - moderate - high VTE Device Contraindication: Treatment Not Indicated VTE Drug Contraindication: N/A - Med Ordered
[2022-08-13] MEDS: Metoprolol Tartrate 25 MG TABLET PO ×2 (11:51→21:37)
--- NOTE | 2022-08-13 13:13 | PM.HEMONCCN ---
Subjective - Subjective Chief complaint: Emesis Patient: new to practice Consult date: 08/13/22 Requesting Physician: Dr. Vargas Primary Care Provider: Unknown Physician Medical Summary: Diagnosis: Rt colon mass PMH: Right carotid surgery, placement of a stent in the left subclavian artery,, and removal of the left fallopian tube and ovary. She thinks she may have had an MN in the past. She denies any history of stroke, known lung disease, diabetes, nor renal disease HPI - Consult Narrative Reason for consult: Colon cancer Narrative: Kelly Kingsley is a 77 year old woman with past medical history of coronary artery disease, who is presenting with complaints of nausea vomiting that started a day prior to admission. She says that she had a similar episode in July which resolved spontaneously. However after that episode she lost her appetite and lost weight. This past Friday she started to throw up at home which is quite severe and constant. Her neighbor came over to help her and call the ambulance. She also reports abdominal pain. No history of hematochezia or melena. Further evaluation in the ED revealed mild anemia, CT abdomen/pelvis showed significant thickening and mass in the cecum/ileocecal region causing partial small bowel obstruction. This was concerning for colonic neoplasm. She lives alone, her last year. Family history significant for melanoma in a brother who at age 46. Her mother was treated for lung cancer and her father was treated for prostate cancer. She has an older sister, she has no children. She has been driving and able to carry all activities of daily living by herself. She has never had a colonoscopy. She stopped having mammograms many years ago. She has a PCP in [place]. Review of Systems - Constitutional Reports as per HPI, Reports fatigue, Reports lack of energy, Reports malaise, Reports poor appetite, Reports weakness, Reports weight loss - Cardiovascular Reports no additional cardiovascular complaints - Respiratory Reports no additional respiratory complaints - Gastrointestinal Reports abdominal pain, Reports bloating - Neurologic Reports no additional neurologic complaints, Reports as per HPI Oncology Screenings - ECOG Performance Status ECOG Performance Status: 2 [facility] Medical History: Medical History (Last Reviewed 08/13/22 @ 10:46 by Precious Cruz PT) Blind right eye CAD (coronary artery disease) Onset Date: 11/07/08 History of cholelithiasis History of CVA (cerebrovascular accident) HLD (hyperlipidemia) Onset Date: 08/17/08 Stress-induced cardiomyopathy Family History: Family History (Last Reviewed 08/13/22 @ 10:34 by Hero Casanova MD) Father Prostate cancer Surgical History: Surgical History (Last Reviewed 08/13/22 @ 10:46 by Precious Cruz PT) No pertinent past surgical history Social History: Social History (Last Reviewed 08/13/22 @ 10:34 by Hero Casanova MD) Living Situation History: Household Members: None Housing: House Do you presently have visiting nurse or other home services: No Tobacco History: Patient Tobacco Use Status: Former Tobacco user Occupation Assessmet: service: No Current occupational status: retired Home Medications and Allergies Current Medications: Current Medications Acetaminophen (Acetaminophen 325 Mg Tablet) 650 mg PO Q6H PRN PRN Reason: Pain, Mild (Pain Scale 1-3) Amlodipine Besylate (Amlodipine Besylate 5 Mg Tablet) 5 mg PO DAILY [facility]; Protocol Last Admin: 08/13/22 08:24 Dose: 5 mg Famotidine (Famotidine/Pf 20 Mg/2 Ml Vial) 20 mg IVPUSH BID [facility] Last Admin: 08/13/22 08:24 Dose: 20 mg Heparin Sodium (Porcine) (Heparin Sodium,Porcine 5,000 Unit/Ml Vial) 5,000 unit SUBCUT Q12H [facility] Last Admin: 08/13/22 09:50 Dose: 5,000 unit Metoprolol Tartrate (Metoprolol Tartrate 25 Mg Tablet) 25 mg PO BID [facility]; Protocol Last Admin: 08/13/22 11:51 Dose: 25 mg Morphine Sulfate (Morphine Sulfate 4 Mg/Ml Cartridge) 4 mg IVPUSH Q4H PRN; Protocol PRN Reason: Pain, Severe (Pain Scale 7-10) Last Admin: 08/10/22 21:38 Dose: 4 mg Ondansetron HCl (Ondansetron Hcl 4 Mg/2 Ml Vial) 4 mg IVPUSH Q8H PRN PRN Reason: Nausea and Vomiting Last Admin: 08/13/22 06:47 Dose: 4 mg Pharmacy Consult (Consult Rx Perform Med Rec) 1 each MISCELLANE ONCE PRN PRN Reason: Consult order Sodium Chloride (0.9 % Sodium Chloride Flush 3 Ml Syringe) 3 ml IVFLUSH QSHIFT [facility] Last Admin: 08/13/22 08:24 Dose: 3 ml Home Medications Medication Instructions Recorded Confirmed Type aspirin 81 mg tablet,delayed 81 mg DAILY 08/10/22 08/10/22 History release Allergies Allergy/AdvReac Type Severity Reaction Status Date / Time clopidogrel [From PLAVIX] Allergy Unknown INTERNAL Unverified 07/20/20 16:12 BLEEDING Dofcswr-BCG-LqS Reductase Allergy Unknown LEG Unverified 07/20/20 16:12 Inhibitor STIFFNESS [[id number]-SBY REDUCTASE INHIBITOR] Physical Exam Vital signs: Vital Signs Temp 98.3 F 08/13/22 11:52 Pulse 82 08/13/22 11:52 Resp 18 08/13/22 11:52 BP 156/66 H 08/13/22 11:53 Pulse Ox 96 08/13/22 11:52 O2 Del Method 08/13/22 11:52 Intake & Output 08/12/22 08/13/22 08/13/22 18:59 06:59 18:59 Intake Total 1320 / 2718.333 1398.333 / 2718.333 Output Total 300 / 1750 1450 / 1750 Balance 1020 / 968.333 -51.667 / 968.333 Urine Output (Average ml/kg/hr) 0.39 1.86 Intake: Intake, Oral Amount 320 / 920 600 / 920 Intake, IV Amount 1000 / 1798.333 798.333 / 1798.333 Lactated Ringers 1,000 ml @ 75 1000 / 1798.333 798.333 / 1798.333 mls/hr IVCONT .[id number] [facility] Rx#: [id number] Output: Output, Urine Amount 700 / 700 Output, Urine Amount (Catheter) 300 / 1050 750 / 1050 heath 300 / 1050 750 / 1050 Other: Breakfast % Eaten 0% Lunch % Eaten 75% Dinner % Eaten 50% Urine heath Urine Color Yellow Yellow Weight 64.864 kg Weight 64.864 kg - Constitutional Present: no acute distress - Routine HEENT Exam Head: Present: normal inspection Eye: Present: PERRL - Routine Neck Exam Present: supple. Absent: lymphadenopathy - Routine Respiratory Exam Present: CTAB. Absent: accessory muscle use - Routine Cardiovascular Exam Cardiovascular: Present: RRR, S1, S2 - Routine Abdominal Exam Present: distended - Routine Extremities Exam Present: pulses intact. Absent: calf tenderness, tenderness - Routine Skin Exam Present: intact, pallor. Absent: cyanosis Hem/Onc Consult Result - Labs CBC & Chem 7: 08/12/22 05:44 08/12/22 05:44 Assessment and Plan Patient Active problem list reviewed?: Yes (1) Colonic mass Status: Acute Assessment and plan: 1. 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 CT abdomen/pelvis with contrast performed 08/10/2022 reported as lobular thickened cecal wall, dilated terminal ileum. Reviewed personally the scan with Dr. Wilhelm, there is associated large mass as well as regional lymphadenopathy. CEA elevated at 1064 NG/mL. This is worrisome for metastatic disease. Have recommended CT chest with contrast to complete staging workup. Liver does not appear to be involved. I agree with above recommendations, she does not need colonoscopy to establish diagnosis. Surgery for diagnostic and therapeutic purposes is being planned. She would not be a candidate for neoadjuvant therapy because of symptoms of bowel obstruction. There is no family history of colon cancer. She would be a candidate for systemic therapy either in the adjuvant or metastatic setting depending on staging. I thank you very much for this consultation. I will follow with you. - Time Spent With Patient Time Spent with Patient (in minutes): 25
[2022-08-14 04:00] VITALS: BP 194/90; PULSE 69; RESP 17; TEMP 36.3; O2SAT 98
--- NOTE | 2022-08-14 05:06 | PC.NURSE ---
PT BP 194/90, MD Butler notified, NO for Hydralazine 10mg IV push once.
[2022-08-14] MEDS: hydrALAZINE HCl 20 MG/ML VIAL 10 MG IVPUSH (05:19)
[2022-08-14 06:05] VITALS: BP 170/80
--- NOTE | 2022-08-14 06:09 | PC.NURSE ---
PT BP coming down after medication, now it is 170/80 at 0605, PT asymptomatic.
[2022-08-14 06:51] LABS: Hematocrit 35.7 % (37.0-47.0); Hemoglobin 11.7 g/dl (12.0-16.0); Mean Corpuscular HGB Conc 32.8 g/dl (31.0-35.0); Mean Corpuscular Hemoglobin 28.3 pg (27.0-33.0); Mean Corpuscular Volume 86.2 fL (80.0-98.0); Mean Platelet Volume 10.4 fL (9.4-12.3); Platelet Count 209 X10*3/uL (160-400); Red Blood Count 4.14 X10*6/uL (4.20-5.50); Red Cell Distribution Width 14.3 % (11.0-16.0); White Blood Count 6.9 X10*3/uL (4.8-10.8)
[2022-08-14 07:06] LABS: Anion Gap 16 (12-20); Blood Urea Nitrogen 7 mg/dL (9-16); Calcium 8.2 mg/dL (8.4-10.2); Carbon Dioxide 22 mmol/L (22-29); Chloride 108 mmol/L (96-108); Creatinine Clr Calc Pharmacy 52.3; Estimated Glomerular Filt Rate > 60; Glucose Random 91 mg/dL (60-115); Potassium 3.5 mmol/L (3.3-5.1); Sodium 142 mmol/L (135-145)
[2022-08-14 07:54] VITALS: BP 164/77; PULSE 80; RESP 17; TEMP 36.8; O2SAT 96
--- NOTE | 2022-08-14 08:09 | PM.PNGS ---
Subjective Subjective Date of Service: 08/14/22 Interval history: The patient seems confused based on our conversation this morning, insisting that she is in her room with no room number in that she requested being in [facility] but she has been placed in [facility]. She does confirm date, time, season and recognizes me, however she stated that she will not signed an operative consent without Sudha, her healthcare piping drafter and proxy at the bedside. She otherwise denies chest pain, difficulty breathing or shortness of breath. She notes that she has a little anxious and is hyperventilating a little but when I examine her, she is breathing at a normal rate. She denies any chest pain, focal neurologic symptoms or abdominal pain. Physical Exam Vital Signs: Vital Signs: Last Vital Signs Temp 98.3 F 08/14/22 07:54 Pulse 80 08/14/22 07:54 Resp 17 08/14/22 07:54 BP 164/77 H 08/14/22 07:54 Pulse Ox 96 08/14/22 07:54 O2 Del Method 08/14/22 07:54 BMI result Body Mass Index 22.4 On exam, she is nontoxic Neurologically there is no focal weakness or sensory loss Mentally, she knew the day, date the fact that she was in the hospital, recalled my name and knows that she needs an operation for a colon cancer, however she was focused on [facility] verses [facility] and the fact that Sudha was not at the bedside Her abdomen is soft with no tenderness. It is nondistended with no tympany. Objective Data Active Medications Acetaminophen (Acetaminophen 325 Mg Tablet) 650 mg PO Q6H PRN PRN Reason: Pain, Mild (Pain Scale 1-3) Amlodipine Besylate (Amlodipine Besylate 5 Mg Tablet) 5 mg PO DAILY ROBIN; Protocol Last Admin: 08/13/22 08:24 Dose: 5 mg Documented By: CHRISTY Famotidine (Famotidine/Pf 20 Mg/2 Ml Vial) 20 mg IVPUSH BID ROBIN Last Admin: 08/13/22 21:37 Dose: 20 mg Documented By: DHRUVRINGrecia Heparin Sodium (Porcine) (Heparin Sodium,Porcine 5,000 Unit/Ml Vial) 5,000 unit SUBCUT Q12H ROBIN Stop: 08/14/22 18:00 Last Admin: 08/13/22 21:38 Dose: 5,000 unit Documented By: KEVIN Metoprolol Tartrate (Metoprolol Tartrate 25 Mg Tablet) 25 mg PO BID [facility]; Protocol Last Admin: 08/13/22 21:37 Dose: 25 mg Documented By: KEVIN Morphine Sulfate (Morphine Sulfate 4 Mg/Ml Cartridge) 4 mg IVPUSH Q4H PRN; Protocol PRN Reason: Pain, Severe (Pain Scale 7-10) Last Admin: 08/10/22 21:38 Dose: 4 mg Documented By: AIDAN Ondansetron HCl (Ondansetron Hcl 4 Mg/2 Ml Vial) 4 mg IVPUSH Q8H PRN PRN Reason: Nausea and Vomiting Last Admin: 08/13/22 06:47 Dose: 4 mg Documented By: MICAELA Pharmacy Consult (Consult Rx Perform Med Rec) 1 each MISCELLANE ONCE PRN PRN Reason: Consult order Sodium Chloride (0.9 % Sodium Chloride Flush 3 Ml Syringe) [facility] Last Admin: 08/13/22 21:40 Dose: 3 ml Documented By: KEVIN Labs CBC & Chem 7: 08/14/22 05:44 08/14/22 05:44 Labs: Laboratory Results - last 24 hr 08/13/22 08/14/22 08/14/22 12:48 05:44 05:44 MCV 86.2 MCH 28.3 MCHC 32.8 RDW 14.3 Plt Count 209 MPV 10.4 Absolute Nucleated RBC 0.000 Nucleated RBC % (auto) 0.0 Anion Gap 16 Estim Creat Clear Calc 52.3 Estimated GFR > 60 Random Glucose 91 Calcium 8.2 L Blood Type O Positive Antibody Screen NEGATIVE Procedures Date of Service Date of Service: 08/14/22 Progress Note: A&P Assessment and plan (1) Stress-induced cardiomyopathy: Status: Acute (2) Atherosclerotic cardiovascular disease: Status: Acute (3) Protein calorie malnutrition: Status: Acute (4) Elevated CEA: Status: Acute (5) History of CVA (cerebrovascular accident): Status: Acute (6) HLD (hyperlipidemia): Status: Acute (7) CAD (coronary artery disease): Status: Acute (8) Colonic mass: Status: Acute Plan I reached out to the patient's proxy, Sudha Berumen at [phone] and explained that I believe the patient is reorienting after an episode of owning. We will try to me later this morning regarding signing a consent but that we reviewed yesterday in the afternoon. In reviewing the patient's CT, she has calcifications to her gallbladder wall which can increase risk for malignancy. Will discuss cholecystectomy given the findings of a porcelain gallbladder. Await chest CT interpretation from Radiology. At this time, the patient is tentatively scheduled for right hemicolectomy tomorrow, at approximately 12:30. See orders. I again met with the patient, a friend and Sudha Berumen, health care proxy and explained that the patient has a large tumor which is likely a colon cancer in her cecum that is causing a partial small bowel obstruction. I also explained that there could be other cancers that are not appreciated on CT scan. Ideally, a colonoscopy is performed to exclude other large polyps or cancers. Unfortunately, this is not an option given her partial blockage. I recommended proceeding with a laparoscopic-assisted right hemicolectomy and reviewed the inherent risks which include, but are not limited to: Bleeding, bleeding that could cause need for another operation or even a blood transfusion; the infectious risks related to blood transfusions including HIV, hepatitis-B or C in transfusion reactions; I also explained the unlikely but possible issue of anastomotic complications that could lead to sepsis, require another operation or require an ileostomy that could be permanent; I again explained there is a slight but unlikely possible need based on her anatomy that an ostomy may be required in order to save her life and that we would only do 1 of this was necessary; I also explained that during the procedure, it is possible I could find other large colon cancer that would be removed at the time of surgery; the risks related to her recognized and unrecognized comorbidities a vascular disease and cardiac disease include [place], CVA, organ dysfunction and the possibility of . The option of a 2nd opinion was obtained by Dr. Lowe. The option of having him assume care requesting transfer to another institution was again offered and declined. The patient denies any symptoms suggestive of chronic calculous cholecystitis. I explained to her the calcifications of her gallbladder wall and the theoretic issue of gallbladder malignancy. Given the patient's comorbidities, it seems most appropriate to address the colon mass causing a bowel obstruction and observe her address the gallbladder when she is medically optimized. The patient is in agreement with this plan. Typical postoperative course was reviewed with the patient and her healthcare proxy in friend. The likely need for rehab was also discussed. The interval need for a post resection colonoscopy to exclude other malignancies or polyps was also again reviewed. Patient seemed to have her questions answered and gave informed consent. She is okay with blood transfusion if necessary to save her life. Consent was signed and provided to the same Day surgery staff for chart assembly. Time Spent With Patient Time: Total time spent is greater than 50% in coordination of care (as documented) at patient's floor/unit and/or counseling patient: Quality Stroke Does the patient have a stroke diagnosis?: No VTE Prior VTE?: No VTE Risk Level:: Medical - moderate - high VTE Device Contraindication: Treatment Not Indicated VTE Drug Contraindication: N/A - Med Ordered
[2022-08-14] MEDS: Famotidine/PF 20 MG/2 ML VIAL IVPUSH ×2 (09:16→20:01)
[2022-08-14] MEDS: Heparin Sodium,Porcine 5,000 UNIT/ML VIAL 5000 UNIT SUBCUT (09:16)
[2022-08-14] MEDS: amLODIPine Besylate 5 MG TABLET PO (09:16)
[2022-08-14] MEDS: Metoprolol Tartrate 25 MG TABLET PO ×2 (09:16→20:03)
[2022-08-14] MEDS: 0.9 % Sodium Chloride Flush 3 ML SYRINGE IVFLUSH ×3 (09:16→20:06)
--- NOTE | 2022-08-14 09:56 | P.PNIM_ITS ---
Subjective Subjective Date of Service: 08/14/22 Interval History: cc: abd pain, vomitting interval history: overall improved Cardiovascular Cardiovascular: Reports no additional cardiovascular complaints Respiratory Respiratory: Reports no additional respiratory complaints Physical Exam Vital Signs: Vital Signs: Last Vital Signs Temp 98.3 F 08/14/22 07:54 Pulse 80 08/14/22 07:54 Resp 17 08/14/22 07:54 BP 164/77 H 08/14/22 07:54 Pulse Ox 96 08/14/22 07:54 O2 Del Method 08/14/22 07:54 BMI result Body Mass Index 22.4 General: AO X 3, no acute distress Resp: CTA bilateral, no accessory muscles used CVS: S1,S2,RRR GI: soft, non tender, non distended Neuro: motor grossly intact, alert Psych: appropriate affect, appropriate insight Objective Data Active Medications Acetaminophen (Acetaminophen 325 Mg Tablet) 650 mg PO Q6H PRN PRN Reason: Pain, Mild (Pain Scale 1-3) Amlodipine Besylate (Amlodipine Besylate 5 Mg Tablet) 5 mg PO DAILY [facility]; Protocol Last Admin: 08/14/22 09:16 Dose: 5 mg Documented By: MARLENY Famotidine (Famotidine/Pf 20 Mg/2 Ml Vial) 20 mg IVPUSH BID [facility] Last Admin: 08/14/22 09:16 Dose: 20 mg Documented By: MARLENY Heparin Sodium (Porcine) (Heparin Sodium,Porcine 5,000 Unit/Ml Vial) 5,000 unit SUBCUT Q12H [facility] Stop: 08/14/22 18:00 Last Admin: 08/14/22 09:16 Dose: 5,000 unit Documented By: MARLENY Metoprolol Tartrate (Metoprolol Tartrate 25 Mg Tablet) 25 mg PO BID [facility]; Protocol Last Admin: 08/14/22 09:16 Dose: 25 mg Documented By: MARLENY Morphine Sulfate (Morphine Sulfate 4 Mg/Ml Cartridge) 4 mg IVPUSH Q4H PRN; Protocol PRN Reason: Pain, Severe (Pain Scale 7-10) Last Admin: 08/10/22 21:38 Dose: 4 mg Documented By: EDELMIRA-ALEXANDER Ondansetron HCl (Ondansetron Hcl 4 Mg/2 Ml Vial) 4 mg IVPUSH Q8H PRN PRN Reason: Nausea and Vomiting Last Admin: 08/13/22 06:47 Dose: 4 mg Documented By: MICAELA Pharmacy Consult (Consult Rx Perform Med Rec) 1 each MISCELLANE ONCE PRN PRN Reason: Consult order Sodium Chloride (0.9 % Sodium Chloride Flush 3 Ml Syringe) 3 ml IVFLUSH QSHIFT [facility] Last Admin: 08/14/22 09:16 Dose: 3 ml Documented By: MARLENY Labs CBC & Chem 7: 08/14/22 05:44 08/14/22 05:44 Labs: Laboratory Results - last 24 hr 08/13/22 08/14/22 08/14/22 12:48 05:44 05:44 MCV 86.2 MCH 28.3 MCHC 32.8 RDW 14.3 Plt Count 209 MPV 10.4 Absolute Nucleated RBC 0.000 Nucleated RBC % (auto) 0.0 Anion Gap 16 Estim Creat Clear Calc 52.3 Estimated GFR > 60 Random Glucose 91 Calcium 8.2 L Blood Type O Positive Antibody Screen NEGATIVE Assessment and Plan (1) Protein calorie malnutrition: Status: Acute (2) Partial small bowel obstruction: Status: Acute (3) Colonic mass: Status: Acute Plan 77-year-old female with past medical history of CAD, hypercholesterolemia, history of cholelithiasis presents to the hospital with complaints of nausea vomiting, and and decreased oral intake found to have following partial small bowel obstruction secondary to cecal mass concerning for malignancy no history colonoscopies in the past Zofran for nausea tolerating clear liquids plan for surgery tomorrow, 08/15/22 Cardiology appreciated, intermediate unmodifiable risk, would pursue as planned stress induced cardiomyopathy euvolemic conitnue beat marley colonic mass concerning for malignancy with elevated CEA, no obvious lymph nodes enlargement or metastasis noted Holding aspirin Oncology input appreciated, follow up CT scan of the chest to rule out metastasis mild protein calorie malnutrition with adult failure to thrive 2/2 anorexia secondary to above, 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
[2022-08-14 11:07] VITALS: BP 164/77; PULSE 75; RESP 17; TEMP 37.4; O2SAT 93
[2022-08-14] MEDS: ondansetron HCL 4 MG/2 ML VIAL IVPUSH (13:16)
--- NOTE | 2022-08-14 14:29 | MHC.CLN ---
NUTRITION PATIENT ON CL DIET DUE TO PARTIAL SBO. ENSURE CLEAR TID TO PROVIDE ADDITIONAL 720 KCALS, 24 G PROTEIN. TAKING 25-100% OF CLEAR LIQUIDS. NPO 08/15 FOR RIGHT HEMICOLECTOMY. FOLLOW FOR DIET ADVANCEMENT POST PROCEDURE.
[2022-08-14 16:00] VITALS: BP 129/77; PULSE 74; RESP 17; TEMP 36.7; O2SAT 95
[2022-08-14 19:04] VITALS: BP 160/77; PULSE 69; RESP 18; TEMP 36.9; O2SAT 94
[2022-08-15] VITALS (20 sets, daily range): BP systolic 129–212; BP diastolic 70–89; PULSE 64–88; RESP 10–18; TEMP 36.1–37.6; O2SAT 94–98
[2022-08-15 05:59] LABS: Hematocrit 37.4 % (37.0-47.0); Mean Corpuscular HGB Conc 32.1 g/dl (31.0-35.0); Mean Corpuscular Hemoglobin 27.7 pg (27.0-33.0); Mean Corpuscular Volume 86.4 fL (80.0-98.0); Mean Platelet Volume 9.8 fL (9.4-12.3); Platelet Count 196 X10*3/uL (160-400); Red Blood Count 4.33 X10*6/uL (4.20-5.50); Red Cell Distribution Width 14.5 % (11.0-16.0); White Blood Count 6.7 X10*3/uL (4.8-10.8)
[2022-08-15] MEDS: Labetalol HCL 100 MG/20 ML VIAL 20 MG IVPUSH (06:08)
[2022-08-15 06:15] LABS: Anion Gap 14 (12-20); Blood Urea Nitrogen 6 mg/dL (9-16); Calcium 8.6 mg/dL (8.4-10.2); Carbon Dioxide 25 mmol/L (22-29); Chloride 108 mmol/L (96-108); Creatinine Clr Calc Pharmacy 42.7; Estimated Glomerular Filt Rate 49; Glucose Fasting 92 mg/dL (60-99); Potassium 3.6 mmol/L (3.3-5.1); Sodium 143 mmol/L (135-145)
[2022-08-15] MEDS: Famotidine/PF 20 MG/2 ML VIAL IVPUSH ×2 (08:26→19:38)
[2022-08-15] MEDS: Metoprolol Tartrate 25 MG TABLET PO ×2 (08:26→19:38)
[2022-08-15] MEDS: amLODIPine Besylate 5 MG TABLET PO (08:26)
[2022-08-15] MEDS: 0.9 % Sodium Chloride Flush 3 ML SYRINGE IVFLUSH ×2 (08:27→19:43)
--- NOTE | 2022-08-15 09:25 | P.PNIM_ITS ---
Subjective Subjective Date of Service: 08/15/22 Interval History: cc: abd pain, vomitting interval history: overall improved Cardiovascular Cardiovascular: Reports no additional cardiovascular complaints Respiratory Respiratory: Reports no additional respiratory complaints Physical Exam Vital Signs: Vital Signs: Last Vital Signs Temp 97 F 08/15/22 06:54 Pulse 81 08/15/22 06:54 Resp 18 08/15/22 06:54 BP 129/76 08/15/22 06:54 Pulse Ox 94 08/15/22 06:54 O2 Del Method 08/15/22 06:54 BMI result Body Mass Index 22.4 General: AO X 3, no acute distress Resp: CTA bilateral, no accessory muscles used CVS: S1,S2,RRR GI: soft, non tender, non distended Neuro: motor grossly intact, alert Psych: appropriate affect, appropriate insight Objective Data Active Medications Acetaminophen (Acetaminophen 325 Mg Tablet) 650 mg PO Q6H PRN PRN Reason: Pain, Mild (Pain Scale 1-3) Amlodipine Besylate (Amlodipine Besylate 5 Mg Tablet) 5 mg PO DAILY [facility]; Protocol Last Admin: 08/15/22 08:26 Dose: 5 mg Documented By: DEBORA Famotidine (Famotidine/Pf 20 Mg/2 Ml Vial) 20 mg IVPUSH BID [facility] Last Admin: 08/15/22 08:26 Dose: 20 mg Documented By: DEBORA Cefotetan Disodium 2 gm/ (Sodium Chloride) 50 mls @ 100 mls/hr IV PREOP ONE Stop: 08/15/22 13:24 Metoprolol Tartrate (Metoprolol Tartrate 25 Mg Tablet) 25 mg PO BID [facility]; Protocol Last Admin: 08/15/22 08:26 Dose: 25 mg Documented By: DEBORA Morphine Sulfate (Morphine Sulfate 4 Mg/Ml Cartridge) 4 mg IVPUSH Q4H PRN; Protocol PRN Reason: Pain, Severe (Pain Scale 7-10) Last Admin: 08/10/22 21:38 Dose: 4 mg Documented By: AIDAN Ondansetron HCl (Ondansetron Hcl 4 Mg/2 Ml Vial) 4 mg IVPUSH Q8H PRN PRN Reason: Nausea and Vomiting Last Admin: 08/14/22 13:16 Dose: 4 mg Documented By: MARLENY Pharmacy Consult (Consult Rx Perform Med Rec) 1 each MISCELLANE ONCE PRN PRN Reason: Consult order Sodium Chloride (0.9 % Sodium Chloride Flush 3 Ml Syringe) 3 ml IVFLUSH QSHIFT [facility] Last Admin: 08/15/22 08:27 Dose: 3 ml Documented By: DEBORA Labs CBC & Chem 7: 08/15/22 05:39 08/15/22 05:39 Labs: Laboratory Results - last 24 hr 08/15/22 08/15/22 05:39 05:39 MCV 86.4 MCH 27.7 MCHC 32.1 RDW 14.5 Plt Count 196 MPV 9.8 Absolute Nucleated RBC 0.000 Nucleated RBC % (auto) 0.0 Anion Gap 14 Estim Creat Clear Calc 42.7 Estimated GFR 49 Fasting Glucose 92 Calcium 8.6 Assessment and Plan (1) Protein calorie malnutrition: Status: Acute (2) Partial small bowel obstruction: Status: Acute (3) Colonic mass: Status: Acute Plan 77-year-old female with past medical history of CAD, hypercholesterolemia, history of cholelithiasis presents to the hospital with complaints of nausea vomiting, and and decreased oral intake found to have following partial small bowel obstruction secondary to cecal mass concerning for malignancy no history colonoscopies in the past Zofran for nausea tolerating clear liquids plan for surgery today 08/15/22 Cardiology appreciated, intermediate unmodifiable risk, would pursue as planned stress induced cardiomyopathy euvolemic conitnue beat marley colonic mass concerning for malignancy with elevated CEA, no obvious lymph nodes enlargement or metastasis noted Holding aspirin Oncology input appreciated, follow up CT scan of the chest to rule out metastasis mild protein calorie malnutrition with adult failure to thrive 2/2 anorexia secondary to above, 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
--- NOTE | 2022-08-15 13:44 | P.CONAN_ITS ---
HPI - Anesthesia Eval Consult details Narrative: Lap. right colectomy PMFSH Active Problems Active Problems: All Active Problems (Updated 08/13/22 @ 13:13 by Cari Quiñonez MD) Partial small bowel obstruction (Acute) Porcelain gallbladder (Acute) Colonic mass (Acute) Anorexia (Acute) Nausea & vomiting (Acute) Heart murmur (Acute) Anticoagulated (Acute) Elevated CEA (Acute) Anemia (Acute) Protein calorie malnutrition (Acute) Preoperative cardiovascular examination (Acute) Atherosclerotic cardiovascular disease (Acute) Stress-induced cardiomyopathy (Acute) HLD (hyperlipidemia) (Acute 08/17/08) History of CVA (cerebrovascular accident) (Acute) CAD (coronary artery disease) (Acute 11/07/08) Past Medical History Medical History (Updated 08/13/22 @ 13:13 by Cari Quiñonez MD) Blind right eye CAD (coronary artery disease) (11/07/08) History of cholelithiasis History of CVA (cerebrovascular accident) HLD (hyperlipidemia) (08/17/08) Stress-induced cardiomyopathy Family History Family History Father Prostate cancer Family history of problems with anesthesia: No Surgical History Surgical History (Updated 08/15/22 @ 12:54 by Carola Dorsey) S/P partial hysterectomy History of Problems with Anesthesia: No Social History Social History Household Members: None Housing: House Do you presently have visiting nurse or other home services: No Alcohol intake: former Patient Tobacco Use Status: Former Tobacco user Quit Date: 1984 Tobacco use type: Cigarette Years Smoked: 46 service: No Current occupational status: retired Meds Allergies Allergy/AdvReac Type Severity Reaction Status Date / Time clopidogrel [From PLAVIX] Allergy Unknown INTERNAL Verified 08/15/22 12:52 BLEEDING Etezoar-XLP-VaN Reductase Allergy Unknown LEG Verified 08/15/22 12:52 Inhibitor STIFFNESS [GBNBNID-EGG-FSR REDUCTASE INHIBITOR] Active Medications: Current Medications Acetaminophen (Acetaminophen 325 Mg Tablet) 650 mg PO Q6H PRN PRN Reason: Pain, Mild (Pain Scale 1-3) Amlodipine Besylate (Amlodipine Besylate 5 Mg Tablet) 5 mg PO DAILY ROBIN; Protoc ol Last Admin: 08/15/22 08:26 Dose: 5 mg Famotidine (Famotidine/Pf 20 Mg/2 Ml Vial) 20 mg IVPUSH BID [facility] Last Admin: 08/15/22 08:26 Dose: 20 mg Metoprolol Tartrate (Metoprolol Tartrate 25 Mg Tablet) 25 mg PO BID [facility]; Protocol Last Admin: 08/15/22 08:26 Dose: 25 mg Morphine Sulfate (Morphine Sulfate 4 Mg/Ml Cartridge) 4 mg IVPUSH Q4H PRN; Protocol PRN Reason: Pain, Severe (Pain Scale 7-10) Last Admin: 08/10/22 21:38 Dose: 4 mg Ondansetron HCl (Ondansetron Hcl 4 Mg/2 Ml Vial) 4 mg IVPUSH Q8H PRN PRN Reason: Nausea and Vomiting Last Admin: 08/14/22 13:16 Dose: 4 mg Pharmacy Consult (Consult Rx Perform Med Rec) 1 each MISCELLANE ONCE PRN PRN Reason: Consult order Sodium Chloride (0.9 % Sodium Chloride Flush 3 Ml Syringe) [facility] Last Admin: 08/15/22 08:27 Dose: 3 ml Home Medications Medication Instructions Recorded Confirmed Last Taken Type aspirin 81 mg tablet,delayed 81 mg DAILY 08/10/22 08/15/22 08/01/22 History release Exam Exam Date and Time: August 15, 2022 1344 Height,Weight and Vital Signs: Height 5 ft 7 in Weight 64.864 kg Last Vital Signs Temp 98.9 F 08/15/22 12:59 Pulse 78 08/15/22 12:59 Resp 16 08/15/22 12:59 BP 170/79 H 08/15/22 12:59 Pulse Ox 96 08/15/22 12:59 O2 Del Method 08/15/22 12:59 Pertinent Lab Results Pertinent Lab Results: Laboratory Tests 08/10/22 08/10/22 08/10/22 16:15 16:15 16:15 WBC 10.8 RBC 3.98 L Hgb 11.1 L Hct 34.8 L MCV 87.4 MCH 27.9 MCHC 31.9 RDW 14.4 Plt Count 220 MPV 10.0 Immature Gran % (Auto) 0.4 Neut % (Auto) 73.9 H Lymph % (Auto) 16.0 L [place] % (Auto) 8.5 Eos % (Auto) 0.8 Baso % (Auto) 0.4 Lymph # (Auto) 1.7 [place] # (Auto) 0.9 Eos # (Auto) 0.1 Baso # (Auto) 0.0 Abs Immat Gran (auto) 0.04 H Absolute Neuts (auto) 8.0 Absolute Nucleated RBC 0.000 Nucleated RBC % (auto) 0.0 Sodium 136 Potassium 3.7 Chloride 102 Carbon Dioxide 22 Anion Gap 16 BUN 20 H Creatinine 1.27 Estim Creat Clear Calc 36.6 Estimated GFR 41 Random Glucose 85 Fasting Glucose Calcium 8.5 Magnesium 1.9 Total Bilirubin 0.5 AST 16 ALT 6 Alkaline Phosphatase 66 Troponin I High Sens Total Protein 6.0 L Albumin 3.4 L Prealbumin 11.0 L Lipase 8 Carcinoembryonic Ag 1064.00 COVID-19 ([facility]) Negative COVID-19 Clin Com See Note Blood Type Antibody Screen 08/10/22 08/10/22 08/11/22 16:15 19:03 06:20 WBC 7.5 RBC 3.94 L Hgb 10.9 L Hct 34.8 L MCV 88.3 MCH 27.7 MCHC 31.3 RDW 14.6 Plt Count 194 MPV 10.4 Immature Gran % (Auto) 0.1 Neut % (Auto) 72.8 Lymph % (Auto) 15.4 L [place] % (Auto) 9.5 Eos % (Auto) 1.5 Baso % (Auto) 0.7 Lymph # (Auto) 1.2 [place] # (Auto) 0.7 Eos # (Auto) 0.1 Baso # (Auto) 0.1 Abs Immat Gran (auto) 0.01 Absolute Neuts (auto) 5.5 Absolute Nucleated RBC 0.000 Nucleated RBC % (auto) 0.0 Sodium Potassium Chloride Carbon Dioxide Anion Gap BUN Creatinine Estim Creat Clear Calc Estimated GFR Random Glucose Fasting Glucose Calcium Magnesium Total Bilirubin AST ALT Alkaline Phosphatase Troponin I High Sens 6.7 8.5 Total Protein Albumin Prealbumin Lipase Carcinoembryonic Ag COVID-19 ([facility]) COVID-19 Clin Com Blood Type Antibody Screen 08/11/22 08/12/22 08/12/22 06:20 05:44 05:44 WBC 6.3 RBC 3.77 L Hgb 10.4 L Hct 33.5 L MCV 88.9 MCH 27.6 MCHC 31.0 RDW 14.3 Plt Count 193 MPV 10.7 Immature Gran % (Auto) Neut % (Auto) Lymph % (Auto) [place] % (Auto) Eos % (Auto) Baso % (Auto) Lymph # (Auto) [place] # (Auto) Eos # (Auto) Baso # (Auto) Abs Immat Gran (auto) Absolute Neuts (auto) Absolute Nucleated RBC 0.000 Nucleated RBC % (auto) 0.0 Sodium 139 144 Potassium 3.8 4.7 D Chloride 106 110 H Carbon Dioxide 24 23 Anion Gap 13 16 BUN 14 10 Creatinine 1.21 1.10 Estim Creat Clear Calc 38.4 42.2 Estimated GFR 43 48 Random Glucose 81 77 Fasting Glucose Calcium 8.5 8.3 L Magnesium Total Bilirubin AST ALT Alkaline Phosphatase Troponin I High Sens Total Protein Albumin Prealbumin Lipase Carcinoembryonic Ag COVID-19 ([facility]) COVIDAd[facility] Blood Type Antibody Screen 08/13/22 08/14/22 08/14/22 12:48 05:44 05:44 WBC 6.9 RBC 4.14 L Hgb 11.7 L Hct 35.7 L MCV 86.2 MCH 28.3 MCHC 32.8 RDW 14.3 Plt Count 209 MPV 10.4 Immature Gran % (Auto) Neut % (Auto) Lymph % (Auto) [place] % (Auto) Eos % (Auto) Baso % (Auto) Lymph # (Auto) [place] # (Auto) Eos # (Auto) Baso # (Auto) Abs Immat Gran (auto) Absolute Neuts (auto) Absolute Nucleated RBC 0.000 Nucleated RBC % (auto) 0.0 Sodium 142 Potassium 3.5 D Chloride 108 Carbon Dioxide 22 Anion Gap 16 BUN 7 L Creatinine 0.89 Estim Creat Clear Calc 52.3 Estimated GFR > 60 Random Glucose 91 Fasting Glucose Calcium 8.2 L Magnesium Total Bilirubin AST ALT Alkaline Phosphatase Troponin I High Sens Total Protein Albumin Prealbumin Lipase Carcinoembryonic Ag COVID-19 ([facility]) COVID-19 [facility] Com Blood Type O Positive Antibody Screen NEGATIVE 08/15/22 08/15/22 05:39 05:39 WBC 6.7 RBC 4.33 Hgb 12.0 Hct 37.4 MCV 86.4 MCH 27.7 MCHC 32.1 RDW 14.5 Plt Count 196 MPV 9.8 Immature Gran % (Auto) Neut % (Auto) Lymph % (Auto) [place] % (Auto) Eos % (Auto) Baso % (Auto) Lymph # (Auto) [place] # (Auto) Eos # (Auto) Baso # (Auto) Abs Immat Gran (auto) Absolute Neuts (auto) Absolute Nucleated RBC 0.000 Nucleated RBC % (auto) 0.0 Sodium 143 Potassium 3.6 Chloride 108 Carbon Dioxide 25 Anion Gap 14 BUN 6 L Creatinine 1.09 Estim Creat Clear Calc 42.7 Estimated GFR 49 Random Glucose Fasting Glucose 92 Calcium 8.6 Magnesium Total Bilirubin AST ALT Alkaline Phosphatase Troponin I High Sens Total Protein Albumin Prealbumin Lipase Carcinoembryonic Ag COVID-19 ([facility]) COVID-19 Clin Com Blood Type Antibody Screen Airway Mallampati Class: I TM Dist: >3cm Neck ROM: Full Loose/Missing/Broken Teeth: No Heart: ok Lungs: ok Assessment and Plan Assessment Anesthesia Assessment: Anesthesia Plan Discussed and Chart Reviewed Final Anesthetic Review Family History of Problems with Anesthesia: No History of Problems with Anesthesia: No NPO: Yes ASA Class: IV Final Preanesthetic Review: No Changes in Pt Med Stat, Meds/Allgs Chart Reviewed, Consent Obtained/Reviewed and Anes Risks/Benef Reviewed Patient Risk: High Procedure Risk: Intermediate Anesthetic Plan Anesthetic Plan: GA and Agree w/ Assess. and Plan Disposition: Standard PACU
--- NOTE | 2022-08-15 14:46 | MHC.CM.PN ---
Addendum entered by Madeline Espinoza RN 08/15/22 14:51: WILL NEED TO DISCUSS HCP UPON RETURN TO UNIT Original Note: STR BEING RECOMMENDED. PATIENT IS OFF UNIT. REFERRALS TO BE PLACED IN THE EVENT PATIENT DOES DECIDE TO GO. OFFERS CAN BE REVIEWED WITH PATIENT ONCE SHE IS ABLE TO PARTICIPATE IN THIS CONVERSATION.
--- NOTE | 2022-08-15 16:35 | W.PM.OPN ---
Operative Note Operative Note Date of Service: 08/15/22 Narrative: Preop diagnosis: [cecal mass with PSBO, porcelain gall bladder, elevated CEA] Postop diagnosis: [same, grossly normal liver, gallbladder, colon, adhesive band to terminal ileum] Procedure: [Laparoscopic assisted right hemicolectomy, diagnostic laparoscopy] Surgeon: Sagar Linares MD Assist: [James Lowe MD] Anesthesia: [GET, local: Ropivicaine, 0.5%] Estimated blood loss: [10 cc] Specimen: [Right colon with mesentery] Intraoperative findings: [1) approximately 8 cm cecal mass; 2) grossly normal liver; 3) grossly normal gallbladder; grossly normal transverse and sigmoid colon to laparoscopy] Indications: [The patient is a 77-year-old woman with a history of vascular disease who presented with a partial small-bowel obstruction none CT was noted to have a large cecal mass and partial obstruction of the terminal ileum. She was admitted, hydrated and GI consultation obtained to assess clearing the colon by colonoscopy. During hospitalization, the patient reported a family history of her mother having rectal polyps but the patient never had a colonoscopy. Given the partial small-bowel obstruction, bowel prep for colonoscopy could not be performed, consequently, laparoscopic right hemicolectomy with ileocolonic anastomosis and exploratory laparoscopy to address any other obvious masses in the colon was discussed. Opinions from Medical Oncology, and Colorectal surgery, as a consultation from Dr. Lowe were obtained. The inherent risks of this option including bleeding, infection, need for open surgery, anastomotic complications that could lead to sepsis, reoperation, ileostomy; bleeding that could require a blood transfusion in the related infectious diseases risks including hepatitis and HIV were discussed; prolonged ileus and nutritional complications were discussed; and the inherent risk that recognized or unrecognized comorbidities could cause multi-system organ failure and . The option of transfer to another institution was offered but declined. Patient seemed understand her options and at her request, her healthcare proxy and caregiver, Sudha Berumen [phone] was included in the discussion and her questions also seemed to be satisfactorily answered. Questions seemed to be answered and the patient wanted to proceed.] Procedure: [The patient was identified in the preoperative holding area and again in operating room 3 and placed supine on the table. Givens catheter was already in place. She was induced in general endotracheal anesthesia administered with excellent effect. She had received cefotetan, 2 g IV. Sequential compression stockings were in place. Her abdomen was then widely prepped and draped using chlorhexidine. Preemptive local of ropivacaine, 0.5% was used at all trocar insertion sites. I began at the supraumbilical midline and after infiltrating local comp made a stab incision and placed a Veress needle without incident. An appropriate drop test was then performed and a pneumoperitoneum in mmHg was obtained using carbon dioxide. Opening pressure was 2 mmHg. Next, the abdomen was accessed with a 5 mm 30 degree laparoscopic over 5 mm Optiview trocar. Upon entering the abdomen, there is an obvious right colonic/cecal mass noted but there was no evidence of injury from either the Veress needle or trocar insertion. A diagnostic laparoscopy was performed. The liver appeared grossly normal. The gallbladder was inspected and there was no gross, obvious disease. The descending and sigmoid colon were inspected with the laparoscoped been no obvious serosal deformities were noted. Next, a 5 mm suprapubic and 5 mm right epigastric trocar replaced. Patient was then positioned in a Trendelenburg and banked left. Graspers were used to reflect the right colon medially and scissors and electrocautery on a setting of 25 w was used to mobilize the cecum and right colon along the white line of Toldt. 5 mm LigaSure with [place] tip was used to take down the hepatic flexure. During the laparoscopic mobilization of the right colon, care was taken to avoid the duodenum and the right ureter. Once the right colon was mobilized to midline, the abdomen was deflated, the patient returned to neutral position and a periumbilical midline vertical incision made to an access the abdomen. The Aknush retractor was placed and a Elliston used to grasp the fatty veil in the terminal ileum and deliver the specimen. The terminal ileum was divided using a GRIS 60 blue load and the transverse colon was divided in similar manner. LigaSure was used to divide the mesentery and the ileocecal pedicle was divided with the LigaSure or, suture ligated and tied with 2-0 Polysorb suture. Next, a functional end-to-end anastomosis was created from the terminal ileum to the transverse colon using a blue GRIS 60 linear stapler, and while we examined the mesenteric defect, it became obvious that the terminal ileum was tethered into the pelvis. A body wall retractor was used to follow the terminal ileum down and there was a thick adhesive band approximately 15 mm from unknown origin that was divided. Because of the torsion and bruising of the intestine, the anastomosis was redone by dividing the terminal ileum proximal to the band and damage serosa and distal in the transverse colon. A 3-0 Polysorb suture was placed at the crotch of the anastomosis and the staple lines inspected for hemostasis. The mesenteric defect was closed with a running 2 0 Polysorb suture and the abdomen inspected for hemostasis which was good. The Ankush retractor was room and the midline fascia closed with interrupted 0 Polysorb sutures. Skin was closed with tahir including at the 5 mm trocar ports. The patient tolerated the procedure well and was sent to PACU with a Givens in place. All sponge instrument counts were correct x2 At the patient's request, I contacted her healthcare proxy and caregiver, Sudha Berumen at [phone] and apprised her of the operation and findings. Her questions seemed to be satisfactorily answered. I also explained that Dr. Lowe would be covering in my absence for the next few days until next Friday.]
[2022-08-15] MEDS: fentaNYL citrate/PF 100 MCG/2 ML VIAL 25 MCG IVPUSH ×3 (16:56→17:29)
[2022-08-15] MEDS: Labetalol HCL 100 MG/20 ML VIAL 10 MG IVPUSH (17:45)
[2022-08-15] MEDS: ondansetron HCL 4 MG/2 ML VIAL IVPUSH (17:48)
--- NOTE | 2022-08-15 18:42 | PC.NURSE ---
pt arrived from PACU with BP 199/88 pulse 75, Mehrdad CUELLAR made aware/
[2022-08-15] MEDS: Docusate Sodium 100 MG CAPSULE PO (19:38)
[2022-08-15] MEDS: HYDROmorphone HCl 0.5 MG/0.5 ML SYRINGE 0.25 MG IVPUSH (21:16)
[2022-08-16] VITALS (9 sets, daily range): BP systolic 146–169; BP diastolic 68–90; PULSE 67–81; RESP 16–19; TEMP 36.5–37.3; O2SAT 90–94
[2022-08-16] MEDS: HYDROmorphone HCl 0.5 MG/0.5 ML SYRINGE IVPUSH ×3 (02:32→13:36)
[2022-08-16 07:19] LABS: Hematocrit 38.7 % (37.0-47.0); Hemoglobin 12.2 g/dl (12.0-16.0); Mean Corpuscular HGB Conc 31.5 g/dl (31.0-35.0); Mean Corpuscular Hemoglobin 27.5 pg (27.0-33.0); Mean Corpuscular Volume 87.4 fL (80.0-98.0); Mean Platelet Volume 10.4 fL (9.4-12.3); Platelet Count 218 X10*3/uL (160-400); Red Blood Count 4.43 X10*6/uL (4.20-5.50); Red Cell Distribution Width 14.8 % (11.0-16.0); White Blood Count 11.4 X10*3/uL (4.8-10.8)
[2022-08-16 07:32] LABS: Anion Gap 18 (12-20); Blood Urea Nitrogen 11 mg/dL (9-16); Calcium 8.7 mg/dL (8.4-10.2); Carbon Dioxide 23 mmol/L (22-29); Chloride 104 mmol/L (96-108); Creatinine Clr Calc Pharmacy 41.5; Estimated Glomerular Filt Rate 47; Glucose Fasting 116 mg/dL (60-99); Potassium 3.9 mmol/L (3.3-5.1); Sodium 141 mmol/L (135-145)
[2022-08-16] MEDS: Famotidine/PF 20 MG/2 ML VIAL IVPUSH ×2 (07:50→21:16)
[2022-08-16] MEDS: ondansetron HCL 4 MG/2 ML VIAL IVPUSH (07:50)
[2022-08-16] MEDS: Docusate Sodium 100 MG CAPSULE PO ×2 (07:50→21:16)
[2022-08-16] MEDS: Metoprolol Tartrate 25 MG TABLET PO ×2 (07:51→21:16)
[2022-08-16] MEDS: amLODIPine Besylate 5 MG TABLET PO (07:51)
[2022-08-16] MEDS: 0.9 % Sodium Chloride Flush 3 ML SYRINGE IVFLUSH (07:51)
--- NOTE | 2022-08-16 08:10 | PM.PNGS ---
Subjective Subjective Date of Service: 08/16/22 <Dagmar Mars PA-C - Last Filed: 08/16/22 08:16> 08/16/22 <James Lowe MD - Last Filed: 08/16/22 09:54> Interval history: Feels nauseous this morning. Has not vomited but is belching. Denies flatus. She is ok pain baugh when she is lying in bed. <Dagmar Mars PA-C - Last Filed: 08/16/22 08:16> Physical Exam Vital Signs: Vital Signs: Last Vital Signs Temp 97.7 F 08/16/22 06:48 Pulse 76 08/16/22 06:48 Resp 18 08/16/22 06:48 BP 150/90 H 08/16/22 06:48 Pulse Ox 91 L 08/16/22 06:48 O2 Del Method 08/16/22 06:48 O2 Flow Rate 2 08/15/22 18:37 BMI result Body Mass Index 22.4 <Dagmar Mars PA-C - Last Filed: 08/16/22 08:16> Const: General: comfortable, no acute distress and alert <Dagmar Mars PA-C - Last Filed: 08/16/22 08:16> Orientation/consciousness: patient oriented x3 <EDSON Arreguin Last Filed: 08/16/22 08:16> Resp: Effort & Inspection: normal respiratory effort <Dagmar Mars PA-C - Last Filed: 08/16/22 08:16> GI: Inspection: No distended and Yes incision (dressing c/d/i) <Dagmar Mars PA-C - Last Filed: 08/16/22 08:16> Palpation (GI): Soft to palpation, Tenderness to palpation present (GI) (mild, incisional), no guarding and not rigid <EDSON Arreguin Last Filed: 08/16/22 08:16> Skin: General skin exam: no rashes or lesions noted <EDSON Arreguin Last Filed: 08/16/22 08:16> Neuro: General: patient oriented x3 and moves all extremities <EDSON Arreguin Last Filed: 08/16/22 08:16> Extrem: General: Yes no clubbing, cyanosis or edema <Dagmar Mars PA-C - Last Filed: 08/16/22 08:16> Objective Data Active Medications Acetaminophen (Acetaminophen 325 Mg Tablet) 650 mg PO Q6H PRN PRN Reason: Pain, Mild (Pain Scale 1-3) Amlodipine Besylate (Amlodipine Besylate 5 Mg Tablet) 5 mg PO DAILY [facility]; Protocol Last Admin: 08/16/22 07:51 Dose: 5 mg Documented By: GANESH Docusate Sodium (Docusate Sodium 100 Mg Capsule) 100 mg PO BID [facility] Last Admin: 08/16/22 07:50 Dose: 100 mg Documented By: GANESH Famotidine (Famotidine/Pf 20 Mg/2 Ml Vial) 20 mg IVPUSH BID [facility] Last Admin: 08/16/22 07:50 Dose: 20 mg Documented By: GANESH Fentanyl (Fentanyl Citrate/Pf 100 Mcg/2 Ml Vial) 25 mcg IVPUSH Q5M PRN; Protocol PRN Reason: Pain, Moderate (Pain Scale 4-6 Last Admin: 08/15/22 17:29 Dose: 25 mcg Documented By: MIGUEL Hydromorphone HCl (Hydromorphone Hcl 0.5 Mg/0.5 Ml Syringe) 0.25 mg IVPUSH Q5M PRN; Protocol PRN Reason: Pain, Severe (Pain Scale 7-10) Hydromorphone HCl (Hydromorphone Hcl 0.5 Mg/0.5 Ml Syringe) 0.25 mg IVPUSH Q2H PRN; Protocol PRN Reason: Pain, Moderate (Pain Scale 4-6 Last Admin: 08/15/22 21:16 Dose: 0.25 mg Documented By: KEYON Hydromorphone HCl (Hydromorphone Hcl 0.5 Mg/0.5 Ml Syringe) 0.5 mg IVPUSH Q2H PRN; Protocol PRN Reason: Pain, Severe (Pain Scale 7-10) Last Admin: 08/16/22 06:20 Dose: 0.5 mg Documented By: KEYON Metoprolol Tartrate (Metoprolol Tartrate 25 Mg Tablet) 25 mg PO BID [facility]; Protocol Last Admin: 08/16/22 07:51 Dose: 25 mg Documented By: GANESH Ondansetron HCl (Ondansetron Hcl 4 Mg/2 Ml Vial) 4 mg IVPUSH Q8H PRN PRN Reason: Nausea and Vomiting Last Admin: 08/16/22 07:50 Dose: 4 mg Documented By: GANESH Pharmacy Consult (Consult Rx Perform Med Rec) 1 each MISCELLANE ONCE PRN PRN Reason: Consult order Sodium Chloride (0.9 % Sodium Chloride Flush 3 Ml Syringe) 3 ml IVFLUSH QSHIFT [facility] Last Admin: 08/16/22 07:51 Dose: 3 ml Documented By: GANESH <Dagmar Mars PA-C - Last Filed: 08/16/22 08:16> Labs CBC & Chem 7: : 08/16/22 06:19 08/16/22 06:19 <Dagmar Mars PA-C - Last Filed: 08/16/22 08:16> Labs: Laboratory Results - last 24 hr 08/16/22 08/16/22 06:19 06:19 MCV 87.4 MCH 27.5 MCHC 31.5 RDW 14.8 Plt Count 218 MPV 10.4 Absolute Nucleated RBC 0.000 Nucleated RBC % (auto) 0.0 Anion Gap 18 Estim Creat Clear Calc 41.5 Estimated GFR 47 Fasting Glucose 116 H Calcium 8.7 <Dagmar Mars PA-C - Last Filed: 08/16/22 08:16> Procedures Date of Service Date of Service: 08/16/22 <EDSON Arreguin Last Filed: 08/16/22 08:16> Progress Note: A&P Assessment and plan (1) Partial small bowel obstruction: Status: Acute <EDSON Arreguin Last Filed: 08/16/22 08:16> (2) Colonic mass: Status: Acute <EDSON Arreguin Last Filed: 08/16/22 08:16> (3) S/P right hemicolectomy: Status: Acute <EDSON Arreguin Last Filed: 08/16/22 08:16> Assessment and Plan: has had nausea since postop seems to have adequate pain control abd soft good UO await return of GI function pain mgt OOB to chair incentive spirometry seen and examined independently - agree with SANTIAGO Mars <James Lowe MD - Last Filed: 08/16/22 09:54> Assessment and Plan: 77-year-old woman admitted with a partial small-bowel obstruction on CT and was noted to have a large cecal mass and partial obstruction of the terminal ileum. She is now POD #1 s/p laparoscopic assisted right hemicolectomy, diagnostic laparoscopy. She is doing ok this morning but c/o nausea without evidence of GI function. Her abdomen is soft and non distended with c/d/i dressing. Would continue NPO status, gentle hydration. Encouraged OOB to chair at least today. Await return of GI function. Await pathology. <Dagmar Mars PA-C - Last Filed: 08/16/22 08:16> Time Spent With Patient Time: Total time spent is greater than 50% in coordination of care (as documented) at patient's floor/unit and/or counseling patient: <Dagmar Mars PA-C - Last Filed: 08/16/22 08:16> Quality Stroke Does the patient have a stroke diagnosis?: No <Dagmar Mars PA-C - Last Filed: 08/16/22 08:16> VTE Prior VTE?: No <Dagmar Mars PA-C - Last Filed: 08/16/22 08:16> VTE Risk Level:: Medical - moderate - high <Dagmar Mars PA-C - Last Filed: 08/16/22 08:16> VTE Device Contraindication: Treatment Not Indicated <Dagmar Mars PA-C - Last Filed: 08/16/22 08:16> VTE Drug Contraindication: N/A - Med Ordered <EDSON Arreguin Last Filed: 08/16/22 08:16>
--- NOTE | 2022-08-16 08:48 | HO.PM.IMPN ---
Subjective Subjective Date of Service: 08/16/22 Interval History: cc: abd pain, vomitting interval history: nausea Cardiovascular Cardiovascular: Reports no additional cardiovascular complaints Respiratory Respiratory: Reports no additional respiratory complaints Physical Exam Vital Signs: Vital Signs: Last Vital Signs Temp 97.7 F 08/16/22 06:48 Pulse 76 08/16/22 08:35 Resp 18 08/16/22 06:48 BP 150/90 H 08/16/22 06:48 Pulse Ox 91 L 08/16/22 08:35 O2 Del Method 08/16/22 06:48 O2 Flow Rate 2 08/15/22 18:37 BMI result Body Mass Index 22.4 Const: General: comfortable, no acute distress and alert Orientation/consciousness: patient oriented x3 Resp: Effort & Inspection: normal respiratory effort GI: Inspection: No distended and Yes incision (dressing c/d/i) Palpation (GI): Soft to palpation, Tenderness to palpation present (GI) (mild, incisional), no guarding and not rigid Skin: General skin exam: no rashes or lesions noted Neuro: General: patient oriented x3 and moves all extremities Extrem: General: Yes no clubbing, cyanosis or edema Objective Data Active Medications Acetaminophen (Acetaminophen 325 Mg Tablet) 650 mg PO Q6H PRN PRN Reason: Pain, Mild (Pain Scale 1-3) Amlodipine Besylate (Amlodipine Besylate 5 Mg Tablet) 5 mg PO DAILY [facility]; Protocol Last Admin: 08/16/22 07:51 Dose: 5 mg Documented By: GANESH Docusate Sodium (Docusate Sodium 100 Mg Capsule) 100 mg PO BID [facility] Last Admin: 08/16/22 07:50 Dose: 100 mg Documented By: GANESH Famotidine (Famotidine/Pf 20 Mg/2 Ml Vial) 20 mg IVPUSH BID [facility] Last Admin: 08/16/22 07:50 Dose: 20 mg Documented By: GANESH Fentanyl (Fentanyl Citrate/Pf 100 Mcg/2 Ml Vial) 25 mcg IVPUSH Q5M PRN; Protocol PRN Reason: Pain, Moderate (Pain Scale 4-6 Last Admin: 08/15/22 17:29 Dose: 25 mcg Documented By: MIGUEL Hydromorphone HCl (Hydromorphone Hcl 0.5 Mg/0.5 Ml Syringe) 0.25 mg IVPUSH Q5M PRN; Protocol PRN Reason: Pain, Severe (Pain Scale 7-10) Hydromorphone HCl (Hydromorphone Hcl 0.5 Mg/0.5 Ml Syringe) 0.25 mg IVPUSH Q2H PRN; Protocol PRN Reason: Pain, Moderate (Pain Scale 4-6 Last Admin: 08/15/22 21:16 Dose: 0.25 mg Documented By: KEYON Hydromorphone HCl (Hydromorphone Hcl 0.5 Mg/0.5 Ml Syringe) 0.5 mg IVPUSH Q2H PRN; Protocol PRN Reason: Pain, Severe (Pain Scale 7-10) Last Admin: 08/16/22 06:20 Dose: 0.5 mg Documented By: KEYON Metoprolol Tartrate (Metoprolol Tartrate 25 Mg Tablet) 25 mg PO BID [facility]; Protocol Last Admin: 08/16/22 07:51 Dose: 25 mg Documented By: GANESH Ondansetron HCl (Ondansetron Hcl 4 Mg/2 Ml Vial) 4 mg IVPUSH Q8H PRN PRN Reason: Nausea and Vomiting Last Admin: 08/16/22 07:50 Dose: 4 mg Documented By: GANESH Pharmacy Consult (Consult Rx Perform Med Rec) 1 each MISCELLANE ONCE PRN PRN Reason: Consult order Sodium Chloride (0.9 % Sodium Chloride Flush 3 Ml Syringe) 3 ml IVFLUSH [facility] Last Admin: 08/16/22 07:51 Dose: 3 ml Documented By: GANESH Labs CBC & Chem 7: 08/16/22 06:19 08/16/22 06:19 Labs: Laboratory Results - last 24 hr 08/16/22 08/16/22 06:19 06:19 MCV 87.4 MCH 27.5 MCHC 31.5 RDW 14.8 Plt Count 218 MPV 10.4 Absolute Nucleated RBC 0.000 Nucleated RBC % (auto) 0.0 Anion Gap 18 Estim Creat Clear Calc 41.5 Estimated GFR 47 Fasting Glucose 116 H Calcium 8.7 Assessment and Plan (1) Protein calorie malnutrition: Status: Acute (2) Partial small bowel obstruction: Status: Acute (3) Colonic mass: Status: Acute Plan 77-year-old female with past medical history of CAD, hypercholesterolemia, history of cholelithiasis presents to the hospital with complaints of nausea vomiting, and and decreased oral intake found to have following partial small bowel obstruction secondary to cecal mass concerning for malignancy no history colonoscopies in the past Zofran for nausea POD 1 (08/15/22) hemicolectomy stress induced cardiomyopathy euvolemic conitnue beat marley colonic mass concerning for malignancy with elevated CEA, no obvious lymph nodes enlargement or metastasis noted Holding aspirin Oncology input appreciated, follow up CT scan of the chest to rule out metastasis mild protein calorie malnutrition with adult failure to thrive 2/2 anorexia secondary to above, 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
[2022-08-16] MEDS: Dextrose 5 % and 0.45 % NaCl 1,000 ML 80 ML IVCONT ×2 (09:58→21:17)
[2022-08-16 11:27] LABS: Albumin Level 3.3 g/dL (3.5-5.0); Magnesium 1.7 mg/dL (1.6-2.6); Phosphorus 3.9 mg/dL (2.7-4.5)
--- NOTE | 2022-08-16 11:39 | MHC.CLN ---
Addendum entered by Rabia Keller RD 08/16/22 12:49: DAY 3 LIPIDS 16 ML PER HOUR OF 20% LIPIDS. Addendum entered by Rabia Keller RD 08/16/22 11:53: DAY 3 PPN D10AA4.25 AT 70 ML PER HOUR, 16 ML OF 20% LIPIDS IS MAX GOAL RATE. Original Note: NUTRITION/PPN PATIENT WITH HEMICOLECTOMY 08/15. DIET=NPO. SINCE 08/10, DIET NPO, CLEAR LIQUIDS OR FULL LIQUIDS. MEDICAL DX PROTEIN CALORIE MALNUTRITION. ANOREXIA AND REPORTED WEIGHT LOSS PRIOR TO ADMISSION. RECOMMEND PPN D10AA4.25 DAY 1 (08/16/22): PPN D10 AA4.25 AT 30 ML PER HOUR. PROVIDES 367 KCALS, 31 G PROTEIN. REPLETE LYTES NEEDED. MONITOR FOR REFEEDING. DAY 2: PPN D10AA4.25 AT 50 ML PER HOUR. PROVIDES 612 KCALS, 51 G PROTEIN. REPLETE LYTES NEEDED. CHECK TRIGLYCERIDES. MONITOR FOR REFEEDING. DAY 3: PPN D10AA4.25 AT 70 M PER HOUR. ADD LIPIDS 16 ML OF 20% LIPIDS. PROVIDES 1625 KCALS (25 KCALS/KG), 71 G PROTEIN (1.09 G/KG). REPLETE LYTES NEEDED. MONITOR FOR REFEEDING. PATIENT IS AT RISK FOR REFEEDING DUE TO LIMITED PO X 7 DAYS AND NOTED ANOREXIA PRIOR TO ADMISSION. FOLLOW LABS, PPN, AND DIET ADVANCEMENT.
--- NOTE | 2022-08-16 13:09 | HO.POSTANES ---
Post Anesthesia Evaluation Post Anesthesia Evaluation Vital Signs: Vital Signs Temp Pulse Resp BP Pulse Ox O2 Del Method 08/16/22 11:10 97.9 F 81 19 146/68 H 93 Room Air 08/16/22 08:35 76 91 L 08/16/22 06:48 97.7 F 76 18 150/90 H 91 L Room Air 08/16/22 03:49 98 F 67 16 156/78 H 93 Room Air Anesthesia: General Endotracheal-GETA Mental Status: Awake Pain Control: Satisfactory Nausea/Vomiting: Mild Hydration: Adequate Anesthesia-Related Issues: No Anes. Related Issues
[2022-08-17 05:53] LABS: Hematocrit 38.6 % (37.0-47.0); Hemoglobin 12.4 g/dl (12.0-16.0); Mean Corpuscular HGB Conc 32.1 g/dl (31.0-35.0); Mean Corpuscular Hemoglobin 28.4 pg (27.0-33.0); Mean Corpuscular Volume 88.5 fL (80.0-98.0); Mean Platelet Volume 10.4 fL (9.4-12.3); Platelet Count 185 X10*3/uL (160-400); Red Blood Count 4.36 X10*6/uL (4.20-5.50); Red Cell Distribution Width 14.9 % (11.0-16.0); White Blood Count 13.1 X10*3/uL (4.8-10.8)
[2022-08-17 06:05] LABS: Triglycerides 105 mg/dL
[2022-08-17 06:12] LABS: Albumin Level 2.9 g/dL (3.5-5.0); Anion Gap 16 (12-20); Blood Urea Nitrogen 9 mg/dL (9-16); Calcium 8.2 mg/dL (8.4-10.2); Carbon Dioxide 22 mmol/L (22-29); Chloride 104 mmol/L (96-108); Creatinine Clr Calc Pharmacy 51.7; Estimated Glomerular Filt Rate > 60; Glucose Fasting 124 mg/dL (60-99); Magnesium 1.8 mg/dL (1.6-2.6); Phosphorus 2.1 mg/dL (2.7-4.5); Potassium 3.8 mmol/L (3.3-5.1); Sodium 138 mmol/L (135-145)
[2022-08-17] MEDS: HYDROmorphone HCl 0.5 MG/0.5 ML SYRINGE IVPUSH (06:29)
[2022-08-17] MEDS: amLODIPine Besylate 5 MG TABLET PO (07:37)
[2022-08-17] MEDS: Docusate Sodium 100 MG CAPSULE PO ×2 (07:37→20:18)
[2022-08-17] MEDS: Metoprolol Tartrate 25 MG TABLET PO ×2 (07:37→20:18)
[2022-08-17] MEDS: Famotidine/PF 20 MG/2 ML VIAL IVPUSH ×2 (07:38→20:18)
[2022-08-17] MEDS: 0.9 % Sodium Chloride Flush 3 ML SYRINGE IVFLUSH ×3 (07:38→20:18)
[2022-08-17 07:42] VITALS: BP 175/80; PULSE 72; RESP 20; TEMP 37.4; O2SAT 92
--- NOTE | 2022-08-17 09:19 | PM.PNGS ---
Subjective Subjective Date of Service: 08/17/22 Interval history: nausea better does not recall being flatus - not very reliable pain seems better control Physical Exam Vital Signs: Vital Signs: Last Vital Signs Temp 99.3 F 08/17/22 07:42 Pulse 72 08/17/22 07:42 Resp 20 08/17/22 07:42 BP 175/80 H 08/17/22 07:42 Pulse Ox 92 08/17/22 07:42 O2 Del Method 08/17/22 07:42 O2 Flow Rate 2 08/15/22 18:37 BMI result Body Mass Index 22.4 Const: General: comfortable and no acute distress Resp: Effort & Inspection: normal respiratory effort Cardio: Rate: regular rate GI: Other: soft, incisions, clean and dry, no guarding rebound, tender on incision, appropriate Objective Data Active Medications Acetaminophen (Acetaminophen 325 Mg Tablet) 650 mg PO Q6H PRN PRN Reason: Pain, Mild (Pain Scale 1-3) Amlodipine Besylate (Amlodipine Besylate 5 Mg Tablet) 5 mg PO DAILY [facility]; Protocol Last Admin: 08/17/22 07:37 Dose: 5 mg Documented By: GANESH Docusate Sodium (Docusate Sodium 100 Mg Capsule) 100 mg PO BID [facility] Last Admin: 08/17/22 07:37 Dose: 100 mg Documented By: GANESH Famotidine (Famotidine/Pf 20 Mg/2 Ml Vial) 20 mg IVPUSH BID [facility] Last Admin: 08/17/22 07:38 Dose: 20 mg Documented By: GANESH Fentanyl (Fentanyl Citrate/Pf 100 Mcg/2 Ml Vial) 25 mcg IVPUSH Q5M PRN; Protocol PRN Reason: Pain, Moderate (Pain Scale 4-6 Last Admin: 08/15/22 17:29 Dose: 25 mcg Documented By: MIGUEL Hydromorphone HCl (Hydromorphone Hcl 0.5 Mg/0.5 Ml Syringe) 0.25 mg IVPUSH Q5M PRN; Protocol PRN Reason: Pain, Severe (Pain Scale 7-10) Hydromorphone HCl (Hydromorphone Hcl 0.5 Mg/0.5 Ml Syringe) 0.25 mg IVPUSH Q2H PRN; Protocol PRN Reason: Pain, Moderate (Pain Scale 4-6 Last Admin: 08/15/22 21:16 Dose: 0.25 mg Documented By: KEYON Hydromorphone HCl (Hydromorphone Hcl 0.5 Mg/0.5 Ml Syringe) 0.5 mg IVPUSH Q2H PRN; Protocol PRN Reason: Pain, Severe (Pain Scale 7-10) Last Admin: 08/17/22 06:29 Dose: 0.5 mg Documented By: VIVI Multivitamins 27.8 ml/ Trace Metals 2.8 ml/ Amino Acids/Electrolytes/Dextrose 720 mls @ 30 mls/hr IV DAILY@1800 [facility] Stop: 08/17/22 17:59 Last Admin: 08/16/22 18:10 Dose: 30 mls/hr Documented By: GANESH Metoprolol Tartrate (Metoprolol Tartrate 25 Mg Tablet) 25 mg PO BID [facility]; Protocol Last Admin: 08/17/22 07:37 Dose: 25 mg Documented By: GANESH Ondansetron HCl (Ondansetron Hcl 4 Mg/2 Ml Vial) 4 mg IVPUSH Q8H PRN PRN Reason: Nausea and Vomiting Last Admin: 08/16/22 07:50 Dose: 4 mg Documented By: GANESH Pharmacy Consult (Consult Rx Perform Med Rec) 1 each MISCELLANE ONCE PRN PRN Reason: Consult order Sodium Chloride (0.9 % Sodium Chloride Flush 3 Ml Syringe) 3 ml IVFLUSH [facility] Last Admin: 08/17/22 07:38 Dose: 3 ml Documented By: GANESH Labs CBC & Chem 7: 08/17/22 05:35 08/17/22 05:35 Labs: Laboratory Results - last 24 hr 08/16/22 08/17/22 08/17/22 06:19 05:35 05:35 MCV 88.5 MCH 28.4 MCHC 32.1 RDW 14.9 Plt Count 185 MPV 10.4 Absolute Nucleated RBC 0.000 Nucleated RBC % (auto) 0.0 Anion Gap 16 Estim Creat Clear Calc 51.7 Estimated GFR > 60 Fasting Glucose 124 H Calcium 8.2 L Phosphorus 3.9 2.1 L Magnesium 1.7 1.8 Albumin 3.3 L 2.9 L Triglycerides 08/17/22 05:35 MCV MCH MCHC RDW Plt Count MPV Absolute Nucleated RBC Nucleated RBC % (auto) Anion Gap Estim Creat Clear Calc Estimated GFR Fasting Glucose Calcium Phosphorus Magnesium Albumin Triglycerides 105 Procedures Date of Service Date of Service: 08/17/22 Progress Note: A&P Assessment and plan (1) S/P right hemicolectomy: Status: Acute Assessment and Plan: okay to have clear liquid diet incentive spirometry - patient instructed out of bed to chair/ recliner await return of GI function looks well stable postop HCP updated Time Spent With Patient Time: Total time spent is greater than 50% in coordination of care (as documented) at patient's floor/unit and/or counseling patient: Quality Stroke Does the patient have a stroke diagnosis?: No VTE Prior VTE?: No VTE Risk Level:: Medical - moderate - high VTE Device Contraindication: Treatment Not Indicated VTE Drug Contraindication: N/A - Med Ordered
--- NOTE | 2022-08-17 10:03 | P.PNIM_ITS ---
Subjective Subjective Date of Service: 08/17/22 Interval History: cc: abd pain, vomitting interval history: nausea Cardiovascular Cardiovascular: Reports no additional cardiovascular complaints Respiratory Respiratory: Reports no additional respiratory complaints Physical Exam Vital Signs: Vital Signs: Last Vital Signs Temp 99.3 F 08/17/22 07:42 Pulse 72 08/17/22 07:42 Resp 20 08/17/22 07:42 BP 175/80 H 08/17/22 07:42 Pulse Ox 92 08/17/22 07:42 O2 Del Method 08/17/22 07:42 O2 Flow Rate 2 08/15/22 18:37 BMI result Body Mass Index 22.4 Const: General: comfortable and no acute distress Resp: Effort & Inspection: normal respiratory effort Cardio: Rate: regular rate GI: Other: soft, incisions, clean and dry, no guarding rebound, tender on incision, appropriate Objective Data Active Medications Acetaminophen (Acetaminophen 325 Mg Tablet) 650 mg PO Q6H PRN PRN Reason: Pain, Mild (Pain Scale 1-3) Amlodipine Besylate (Amlodipine Besylate 5 Mg Tablet) 5 mg PO DAILY [facility]; Protocol Last Admin: 08/17/22 07:37 Dose: 5 mg Documented By: GANESH Docusate Sodium (Docusate Sodium 100 Mg Capsule) 100 mg PO BID [facility] Last Admin: 08/17/22 07:37 Dose: 100 mg Documented By: GANESH Famotidine (Famotidine/Pf 20 Mg/2 Ml Vial) 20 mg IVPUSH BID [facility] Last Admin: 08/17/22 07:38 Dose: 20 mg Documented By: GANESH Fentanyl (Fentanyl Citrate/Pf 100 Mcg/2 Ml Vial) 25 mcg IVPUSH Q5M PRN; Protocol PRN Reason: Pain, Moderate (Pain Scale 4-6 Last Admin: 08/15/22 17:29 Dose: 25 mcg Documented By: MIGUEL Hydromorphone HCl (Hydromorphone Hcl 0.5 Mg/0.5 Ml Syringe) 0.25 mg IVPUSH Q5M PRN; Protocol PRN Reason: Pain, Severe (Pain Scale 7-10) Hydromorphone HCl (Hydromorphone Hcl 0.5 Mg/0.5 Ml Syringe) 0.25 mg IVPUSH Q2H PRN; Protocol PRN Reason: Pain, Moderate (Pain Scale 4-6 Last Admin: 08/15/22 21:16 Dose: 0.25 mg Documented By: KEYON Hydromorphone HCl (Hydromorphone Hcl 0.5 Mg/0.5 Ml Syringe) 0.5 mg IVPUSH Q2H PRN; Protocol PRN Reason: Pain, Severe (Pain Scale 7-10) Last Admin: 08/17/22 06:29 Dose: 0.5 mg Documented By: VIVI Multivitamins 27.8 ml/ Trace Metals 2.8 ml/ Amino Acids/Electrolytes/Dextrose 720 mls @ 30 mls/hr IV DAILY@1800 [facility] Stop: 08/17/22 17:59 Last Admin: 08/16/22 18:10 Dose: 30 mls/hr Documented By: GANESH Metoprolol Tartrate (Metoprolol Tartrate 25 Mg Tablet) 25 mg PO BID [facility]; Protocol Last Admin: 08/17/22 07:37 Dose: 25 mg Documented By: GANESH Ondansetron HCl (Ondansetron Hcl 4 Mg/2 Ml Vial) 4 mg IVPUSH Q8H PRN PRN Reason: Nausea and Vomiting Last Admin: 08/16/22 07:50 Dose: 4 mg Documented By: GANESH Pharmacy Consult (Consult Rx Perform Med Rec) 1 each MISCELLANE ONCE PRN PRN Reason: Consult order Sodium Chloride (0.9 % Sodium Chloride Flush 3 Ml Syringe) 3 ml IVFLUSH [facility] Last Admin: 08/17/22 07:38 Dose: 3 ml Documented By: GANESH Labs CBC & Chem 7: 08/17/22 05:35 08/17/22 05:35 Labs: Laboratory Results - last 24 hr 08/16/22 08/17/22 08/17/22 06:19 05:35 05:35 MCV 88.5 MCH 28.4 MCHC 32.1 RDW 14.9 Plt Count 185 MPV 10.4 Absolute Nucleated RBC 0.000 Nucleated RBC % (auto) 0.0 Anion Gap 16 Estim Creat Clear Calc 51.7 Estimated GFR > 60 Fasting Glucose 124 H Calcium 8.2 L Phosphorus 3.9 2.1 L Magnesium 1.7 1.8 Albumin 3.3 L 2.9 L Triglycerides 08/17/22 05:35 MCV MCH MCHC RDW Plt Count MPV Absolute Nucleated RBC Nucleated RBC % (auto) Anion Gap Estim Creat Clear Calc Estimated GFR Fasting Glucose Calcium Phosphorus Magnesium Albumin Triglycerides 105 Assessment and Plan (1) Protein calorie malnutrition: Status: Acute (2) Partial small bowel obstruction: Status: Acute (3) Colonic mass: Status: Acute Plan 77-year-old female with past medical history of CAD, hypercholesterolemia, history of cholelithiasis presents to the hospital with complaints of nausea vomiting, and and decreased oral intake found to have following partial small bowel obstruction secondary to cecal mass concerning for malignancy Zofran for nausea POD 2 (08/15/22) hemicolectomy advancing to clear liquids stress induced cardiomyopathy euvolemic continue beat marley colonic mass concerning for malignancy with elevated CEA, no obvious lymph nodes enlargement or metastasis noted Oncology input appreciated, follow up CT scan of the chest to rule out metastasis hodling asa mild protein calorie malnutrition with adult failure to thrive 2/2 anorexia secondary to above, 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
[2022-08-17 11:23] VITALS: BP 145/66; PULSE 68; RESP 17; TEMP 37.1; O2SAT 92
--- NOTE | 2022-08-17 11:41 | MHC.CLN ---
F/U DIET ADVANCED TODAY TO CLEAR LIQUIDS. ADDING ENSURE CLEAR TID TO PROMOTE NUTRITIONAL INTAKE. IF PPN CONTINUES, SEE DAY 2 REC ON 08/16/22.
[2022-08-17 14:00] VITALS: O2SAT 92
[2022-08-17 15:15] VITALS: BP 143/95; PULSE 74; RESP 16; TEMP 36.5; O2SAT 90
[2022-08-17 17:00] VITALS: O2SAT 90
[2022-08-17] MEDS: ondansetron HCL 4 MG/2 ML VIAL IVPUSH ×2 (18:37→23:24)
[2022-08-17 19:19] VITALS: BP 138/65; PULSE 71; RESP 16; TEMP 36.7; O2SAT 93
[2022-08-18] VITALS (7 sets, daily range): BP systolic 128–162; BP diastolic 66–85; PULSE 66–77; RESP 15–18; TEMP 36.4–37.5; O2SAT 92–95
[2022-08-18 06:12] LABS: Hematocrit 41.2 % (37.0-47.0); Hemoglobin 13.2 g/dl (12.0-16.0); Mean Corpuscular Hemoglobin 27.6 pg (27.0-33.0); Mean Platelet Volume 10.4 fL (9.4-12.3); Platelet Count 219 X10*3/uL (160-400); Red Blood Count 4.79 X10*6/uL (4.20-5.50); Red Cell Distribution Width 14.8 % (11.0-16.0); White Blood Count 15.9 X10*3/uL (4.8-10.8)
[2022-08-18 06:29] LABS: Anion Gap 14 (12-20); Blood Urea Nitrogen 15 mg/dL (9-16); Calcium 7.8 mg/dL (8.4-10.2); Carbon Dioxide 22 mmol/L (22-29); Chloride 101 mmol/L (96-108); Creatinine Clr Calc Pharmacy 56.7; Estimated Glomerular Filt Rate > 60; Glucose Fasting 130 mg/dL (60-99); Potassium 3.6 mmol/L (3.3-5.1); Sodium 133 mmol/L (135-145)
[2022-08-18] MEDS: Famotidine/PF 20 MG/2 ML VIAL IVPUSH ×2 (07:36→20:32)
[2022-08-18] MEDS: Docusate Sodium 100 MG CAPSULE PO ×2 (07:36→20:32)
[2022-08-18] MEDS: Metoprolol Tartrate 25 MG TABLET PO ×2 (07:36→20:32)
[2022-08-18] MEDS: amLODIPine Besylate 5 MG TABLET PO (07:36)
[2022-08-18] MEDS: 0.9 % Sodium Chloride Flush 3 ML SYRINGE IVFLUSH ×3 (07:40→20:32)
--- NOTE | 2022-08-18 09:04 | HO.PM.IMPN ---
Subjective Subjective Date of Service: 08/18/22 Interval History: cc: abd pain, vomitting interval history: successful BM Cardiovascular Cardiovascular: Reports no additional cardiovascular complaints Respiratory Respiratory: Reports no additional respiratory complaints Physical Exam Vital Signs: Vital Signs: Last Vital Signs Temp 99.5 F 08/18/22 08:00 Pulse 68 08/18/22 08:00 Resp 16 08/18/22 08:00 BP 134/66 08/18/22 08:00 Pulse Ox 94 08/18/22 08:00 O2 Del Method 08/18/22 08:00 O2 Flow Rate 2 08/15/22 18:37 BMI result Body Mass Index 22.4 General: AO X 3, no acute distress Resp: CTA bilateral, no accessory muscles used CVS: S1,S2,RRR GI: soft, tender, non distended Neuro: motor grossly intact, alert Psych: appropriate affect, appropriate insight Objective Data Active Medications Acetaminophen (Acetaminophen 325 Mg Tablet) 650 mg PO Q6H PRN PRN Reason: Pain, Mild (Pain Scale 1-3) Amlodipine Besylate (Amlodipine Besylate 5 Mg Tablet) 5 mg PO DAILY [facility]; Protocol Last Admin: 08/18/22 07:36 Dose: 5 mg Documented By: GANESH Docusate Sodium (Docusate Sodium 100 Mg Capsule) 100 mg PO BID [facility] Last Admin: 08/18/22 07:36 Dose: 100 mg Documented By: GANESH Famotidine (Famotidine/Pf 20 Mg/2 Ml Vial) 20 mg IVPUSH BID [facility] Last Admin: 08/18/22 07:36 Dose: 20 mg Documented By: GANESH Fentanyl (Fentanyl Citrate/Pf 100 Mcg/2 Ml Vial) 25 mcg IVPUSH Q5M PRN; Protocol PRN Reason: Pain, Moderate (Pain Scale 4-6 Last Admin: 08/15/22 17:29 Dose: 25 mcg Documented By: MIGUEL Hydromorphone HCl (Hydromorphone Hcl 0.5 Mg/0.5 Ml Syringe) 0.25 mg IVPUSH Q5M PRN; Protocol PRN Reason: Pain, Severe (Pain Scale 7-10) Hydromorphone HCl (Hydromorphone Hcl 0.5 Mg/0.5 Ml Syringe) 0.25 mg IVPUSH Q2H PRN; Protocol PRN Reason: Pain, Moderate (Pain Scale 4-6 Last Admin: 08/15/22 21:16 Dose: 0.25 mg Documented By: KEYON Hydromorphone HCl (Hydromorphone Hcl 0.5 Mg/0.5 Ml Syringe) 0.5 mg IVPUSH Q2H PRN; Protocol PRN Reason: Pain, Severe (Pain Scale 7-10) Last Admin: 08/17/22 06:29 Dose: 0.5 mg Documented By: VIVI Multivitamins 17 ml/ Trace Metals 1.7 ml/ Amino Acids/Electrolytes/Dextrose 1,200 mls @ 50 mls/hr IV DAILY@1800 [facility] Stop: 08/18/22 17:59 Last Admin: 08/17/22 18:29 Dose: 50 mls/hr Documented By: GANESH Metoprolol Tartrate (Metoprolol Tartrate 25 Mg Tablet) 25 mg PO BID [facility]; Protocol Last Admin: 08/18/22 07:36 Dose: 25 mg Documented By: GANESH Ondansetron HCl (Ondansetron Hcl 4 Mg/2 Ml Vial) 4 mg IVPUSH Q8H PRN PRN Reason: Nausea and Vomiting Last Admin: 08/17/22 18:37 Dose: 4 mg Documented By: GANESH Pharmacy Consult (Consult Rx Perform Med Rec) 1 each MISCELLANE ONCE PRN PRN Reason: Consult order Sodium Chloride (0.9 % Sodium Chloride Flush 3 Ml Syringe) 3 ml IVFLUSH [facility] Last Admin: 08/18/22 07:40 Dose: 3 ml Documented By: GANESH Labs CBC & Chem 7: 08/18/22 05:52 08/18/22 05:52 Labs: Laboratory Results - last 24 hr 08/18/22 08/18/22 05:52 05:52 MCV 86.0 MCH 27.6 MCHC 32.0 RDW 14.8 Plt Count 219 MPV 10.4 Absolute Nucleated RBC 0.000 Nucleated RBC % (auto) 0.0 Anion Gap 14 Estim Creat Clear Calc 56.7 Estimated GFR > 60 Fasting Glucose 130 H Calcium 7.8 L Assessment and Plan (1) Protein calorie malnutrition: Status: Acute (2) Partial small bowel obstruction: Status: Acute (3) Colonic mass: Status: Acute Plan 77-year-old female with past medical history of CAD, hypercholesterolemia, history of cholelithiasis presents to the hospital with complaints of nausea vomiting, and and decreased oral intake found to have following partial small bowel obstruction secondary to cecal mass concerning for malignancy Zofran for nausea POD 3 (08/15/22) hemicolectomy had bm will advance to solids stress induced cardiomyopathy euvolemic continue beat marley colonic mass concerning for malignancy with elevated CEA, no obvious lymph nodes enlargement or metastasis noted Oncology input appreciated, CT scan of the chest - no obvious metastasis holding asa mild protein calorie malnutrition with adult failure to thrive 2/2 anorexia secondary to above, 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
--- NOTE | 2022-08-18 09:51 | P.PNGS_ITS ---
Subjective Subjective Date of Service: 08/18/22 Interval history: had loose stools passing flatus says she feels better Physical Exam Vital Signs: Vital Signs: Last Vital Signs Temp 99.5 F 08/18/22 08:00 Pulse 68 08/18/22 08:00 Resp 16 08/18/22 08:00 BP 134/66 08/18/22 08:00 Pulse Ox 94 08/18/22 08:00 O2 Del Method 08/18/22 08:00 O2 Flow Rate 2 08/15/22 18:37 BMI result Body Mass Index 22.4 Const: Other: frail looking General: comfortable and no acute distress Resp: Effort & Inspection: normal respiratory effort Cardio: Rate: regular rate GI: Other: incisions clean and dry Palpation (GI): Soft to palpation, not firm and no guarding Objective Data Active Medications Acetaminophen (Acetaminophen 325 Mg Tablet) 650 mg PO Q6H PRN PRN Reason: Pain, Mild (Pain Scale 1-3) Amlodipine Besylate (Amlodipine Besylate 5 Mg Tablet) 5 mg PO DAILY [facility]; Protocol Last Admin: 08/18/22 07:36 Dose: 5 mg Documented By: GANESH Docusate Sodium (Docusate Sodium 100 Mg Capsule) 100 mg PO BID [facility] Last Admin: 08/18/22 07:36 Dose: 100 mg Documented By: GANESH Famotidine (Famotidine/Pf 20 Mg/2 Ml Vial) 20 mg IVPUSH BID [facility] Last Admin: 08/18/22 07:36 Dose: 20 mg Documented By: GANESH Fentanyl (Fentanyl Citrate/Pf 100 Mcg/2 Ml Vial) 25 mcg IVPUSH Q5M PRN; Protocol PRN Reason: Pain, Moderate (Pain Scale 4-6 Last Admin: 08/15/22 17:29 Dose: 25 mcg Documented By: MIGUEL Hydromorphone HCl (Hydromorphone Hcl 0.5 Mg/0.5 Ml Syringe) 0.25 mg IVPUSH Q5M PRN; Protocol PRN Reason: Pain, Severe (Pain Scale 7-10) Hydromorphone HCl (Hydromorphone Hcl 0.5 Mg/0.5 Ml Syringe) 0.25 mg IVPUSH Q2H PRN; Protocol PRN Reason: Pain, Moderate (Pain Scale 4-6 Last Admin: 08/15/22 21:16 Dose: 0.25 mg Documented By: KEYON Hydromorphone HCl (Hydromorphone Hcl 0.5 Mg/0.5 Ml Syringe) 0.5 mg IVPUSH Q2H PRN; Protocol PRN Reason: Pain, Severe (Pain Scale 7-10) Last Admin: 08/17/22 06:29 Dose: 0.5 mg Documented By: VIVI Multivitamins 17 ml/ Trace Metals 1.7 ml/ Amino Acids/Electrolytes/Dextrose 1,200 mls @ 50 mls/hr IV DAILY@1800 [facility] Stop: 08/18/22 17:59 Last Admin: 08/17/22 18:29 Dose: 50 mls/hr Documented By: GANESH Metoprolol Tartrate (Metoprolol Tartrate 25 Mg Tablet) 25 mg PO BID [facility]; Protocol Last Admin: 08/18/22 07:36 Dose: 25 mg Documented By: GANESH Ondansetron HCl (Ondansetron Hcl 4 Mg/2 Ml Vial) 4 mg IVPUSH Q8H PRN PRN Reason: Nausea and Vomiting Last Admin: 08/17/22 18:37 Dose: 4 mg Documented By: GANESH Pharmacy Consult (Consult Rx Perform Med Rec) 1 each MISCELLANE ONCE PRN PRN Reason: Consult order Sodium Chloride (0.9 % Sodium Chloride Flush 3 Ml [facility]) [facility] Last Admin: 08/18/22 07:40 Dose: 3 ml Documented By: GANESH Labs CBC & Chem 7: 08/18/22 05:52 08/18/22 05:52 Labs: Laboratory Results - last 24 hr 08/18/22 08/18/22 05:52 05:52 MCV 86.0 MCH 27.6 MCHC 32.0 RDW 14.8 Plt Count 219 MPV 10.4 Absolute Nucleated RBC 0.000 Nucleated RBC % (auto) 0.0 Anion Gap 14 Estim Creat Clear Calc 56.7 Estimated GFR > 60 Fasting Glucose 130 H Calcium 7.8 L Procedures Date of Service Date of Service: 08/18/22 Progress Note: A&P Assessment and plan (1) S/P right hemicolectomy: Status: Acute Assessment and Plan: has flatus and BMs diet as tolerated OOB to recliner instructed in incentive spirometry PT eval await path report - if adenoCA confirmed, Oncology consult doing well HCP Ranjana updated Time Spent With Patient Time: Total time spent is greater than 50% in coordination of care (as documented) at patient's floor/unit and/or counseling patient: Quality Stroke Does the patient have a stroke diagnosis?: No VTE Prior VTE?: No VTE Risk Level:: Medical - moderate - high VTE Device Contraindication: Treatment Not Indicated VTE Drug Contraindication: N/A - Med Ordered
--- NOTE | 2022-08-18 10:44 | MHC.CLN ---
F/U DIET ADVANCED TODAY TO REGULAR, BLAND. PPN ADVANCED YESTERDAY TO DAY 2: PPN D10AA4.25 AT 50 ML PER HOUR. PROVIDES 612 KCALS, 51 G PROTEIN. REPLETE LYTES NEEDED. WILL COMPLETE TODAY THEN DISCONTINUE PPN. FOLLOW INTAKE, DIET TOLERANCE, LABS.
[2022-08-18] MEDS: ondansetron HCL 4 MG/2 ML VIAL IVPUSH (16:26)
[2022-08-19] VITALS (9 sets, daily range): BP systolic 126–145; BP diastolic 59–70; PULSE 63–72; RESP 15–18; TEMP 36.2–37.3; O2SAT 92–95
[2022-08-19] MEDS: Famotidine/PF 20 MG/2 ML VIAL IVPUSH ×2 (08:28→21:49)
[2022-08-19] MEDS: amLODIPine Besylate 5 MG TABLET PO (08:28)
[2022-08-19] MEDS: 0.9 % Sodium Chloride Flush 3 ML SYRINGE IVFLUSH ×3 (08:28→21:49)
[2022-08-19] MEDS: Docusate Sodium 100 MG CAPSULE PO ×2 (08:28→21:49)
[2022-08-19] MEDS: Metoprolol Tartrate 25 MG TABLET PO ×2 (08:28→21:49)
--- NOTE | 2022-08-19 08:48 | HO.PM.IMPN ---
Subjective Subjective Date of Service: 08/19/22 Interval History: cc: abd pain, vomitting interval history: not tolerating solids Cardiovascular Cardiovascular: Reports no additional cardiovascular complaints Respiratory Respiratory: Reports no additional respiratory complaints Physical Exam Vital Signs: Vital Signs: Last Vital Signs Temp 99.1 F 08/19/22 07:46 Pulse 68 08/19/22 07:46 Resp 16 08/19/22 07:46 BP 133/64 08/19/22 07:46 Pulse Ox 92 08/19/22 07:46 O2 Del Method 08/19/22 07:46 O2 Flow Rate 2 08/15/22 18:37 BMI result Body Mass Index 22.4 Const: Other: frail looking General: comfortable and no acute distress Resp: Effort & Inspection: normal respiratory effort Cardio: Rate: regular rate GI: Other: incisions clean and dry Palpation (GI): Soft to palpation, not firm and no guarding Objective Data Active Medications Acetaminophen (Acetaminophen 325 Mg Tablet) 650 mg PO Q6H PRN PRN Reason: Pain, Mild (Pain Scale 1-3) Amlodipine Besylate (Amlodipine Besylate 5 Mg Tablet) 5 mg PO DAILY [facility]; Protocol Last Admin: 08/19/22 08:28 Dose: 5 mg Documented By: CHRISTY Docusate Sodium (Docusate Sodium 100 Mg Capsule) 100 mg PO BID [facility] Last Admin: 08/19/22 08:28 Dose: 100 mg Documented By: CHRISTY Famotidine (Famotidine/Pf 20 Mg/2 Ml Vial) 20 mg IVPUSH BID [facility] Last Admin: 08/19/22 08:28 Dose: 20 mg Documented By: CHRISTY Fentanyl (Fentanyl Citrate/Pf 100 Mcg/2 Ml Vial) 25 mcg IVPUSH Q5M PRN; Protocol PRN Reason: Pain, Moderate (Pain Scale 4-6 Last Admin: 08/15/22 17:29 Dose: 25 mcg Documented By: MIGUEL Hydromorphone HCl (Hydromorphone Hcl 0.5 Mg/0.5 Ml Syringe) 0.25 mg IVPUSH Q5M PRN; Protocol PRN Reason: Pain, Severe (Pain Scale 7-10) Hydromorphone HCl (Hydromorphone Hcl 0.5 Mg/0.5 Ml Syringe) 0.25 mg IVPUSH Q2H PRN; Protocol PRN Reason: Pain, Moderate (Pain Scale 4-6 Last Admin: 08/15/22 21:16 Dose: 0.25 mg Documented By: KEYON Hydromorphone HCl (Hydromorphone Hcl 0.5 Mg/0.5 Ml Syringe) 0.5 mg IVPUSH Q2H PRN; Protocol PRN Reason: Pain, Severe (Pain Scale 7-10) Last Admin: 08/17/22 06:29 Dose: 0.5 mg Documented By: VIVI Metoprolol Tartrate (Metoprolol Tartrate 25 Mg Tablet) 25 mg PO BID [facility]; Protocol Last Admin: 08/19/22 08:28 Dose: 25 mg Documented By: CHRISTY Ondansetron HCl (Ondansetron Hcl 4 Mg/2 Ml Vial) 4 mg IVPUSH Q8H PRN PRN Reason: Nausea and Vomiting Last Admin: 08/18/22 16:26 Dose: 4 mg Documented By: GANESH Pharmacy Consult (Consult Rx Perform Med Rec) 1 each MISCELLANE ONCE PRN PRN Reason: Consult order Sodium Chloride (0.9 % Sodium Chloride Flush 3 Ml Syringe) 3 ml IVFLUSH QSHIFT [facility] Last Admin: 08/19/22 08:28 Dose: 3 ml Documented By: CHRISTY Labs CBC & Chem 7: 08/18/22 05:52 08/18/22 05:52 Assessment and Plan (1) Protein calorie malnutrition: Status: Acute (2) Partial small bowel obstruction: Status: Acute (3) Colonic mass: Status: Acute Plan 77-year-old female with past medical history of CAD, hypercholesterolemia, history of cholelithiasis presents to the hospital with complaints of nausea vomiting, and and decreased oral intake found to have following partial small bowel obstruction secondary to cecal mass concerning for malignancy Zofran for nausea POD 4 (08/15/22) hemicolectomy had bm but did not tolerate solids stress induced cardiomyopathy euvolemic continue beat marley colonic mass concerning for malignancy with elevated CEA, no obvious lymph nodes enlargement or metastasis noted Oncology input appreciated, CT scan of the chest - no obvious metastasis holding asa mild protein calorie malnutrition with adult failure to thrive 2/2 anorexia secondary to above, 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
--- NOTE | 2022-08-19 10:22 | P.PNGS_ITS ---
Subjective Subjective Date of Service: 08/20/22 Interval history: says he has some nausea passing flatus no actual vomiting Physical Exam Vital Signs: Vital Signs: Last Vital Signs Temp 99.1 F 08/19/22 07:46 Pulse 68 08/19/22 07:46 Resp 16 08/19/22 07:46 BP 133/64 08/19/22 07:46 Pulse Ox 92 08/19/22 07:46 O2 Del Method 08/19/22 07:46 O2 Flow Rate 2 08/15/22 18:37 BMI result Body Mass Index 22.4 Const: Other: looks well General: comfortable and no acute distress Resp: Effort & Inspection: normal respiratory effort Cardio: Rate: regular rate GI: Palpation (GI): Soft to palpation, not firm and no guarding Objective Data Active Medications Acetaminophen (Acetaminophen 325 Mg Tablet) 650 mg PO Q6H PRN PRN Reason: Pain, Mild (Pain Scale 1-3) Amlodipine Besylate (Amlodipine Besylate 5 Mg Tablet) 5 mg PO DAILY [facility]; Protocol Last Admin: 08/19/22 08:28 Dose: 5 mg Documented By: CHRISTY Docusate Sodium (Docusate Sodium 100 Mg Capsule) 100 mg PO BID [facility] Last Admin: 08/19/22 08:28 Dose: 100 mg Documented By: CHRISTY Famotidine (Famotidine/Pf 20 Mg/2 Ml Vial) 20 mg IVPUSH BID [facility] Last Admin: 08/19/22 08:28 Dose: 20 mg Documented By: CHRISTY Fentanyl (Fentanyl Citrate/Pf 100 Mcg/2 Ml Vial) 25 mcg IVPUSH Q5M PRN; Protocol PRN Reason: Pain, Moderate (Pain Scale 4-6 Last Admin: 08/15/22 17:29 Dose: 25 mcg Documented By: MIGUEL Hydromorphone HCl (Hydromorphone Hcl 0.5 Mg/0.5 Ml Syringe) 0.25 mg IVPUSH Q5M PRN; Protocol PRN Reason: Pain, Severe (Pain Scale 7-10) Hydromorphone HCl (Hydromorphone Hcl 0.5 Mg/0.5 Ml Syringe) 0.25 mg IVPUSH Q2H PRN; Protocol PRN Reason: Pain, Moderate (Pain Scale 4-6 Last Admin: 08/15/22 21:16 Dose: 0.25 mg Documented By: KEYON Hydromorphone HCl (Hydromorphone Hcl 0.5 Mg/0.5 Ml Syringe) 0.5 mg IVPUSH Q2H PRN; Protocol PRN Reason: Pain, Severe (Pain Scale 7-10) Last Admin: 08/17/22 06:29 Dose: 0.5 mg Documented By: VIVI Metoprolol Tartrate (Metoprolol Tartrate 25 Mg Tablet) 25 mg PO BID [facility]; Protocol Last Admin: 08/19/22 08:28 Dose: 25 mg Documented By: CHRISTY Ondansetron HCl (Ondansetron Hcl 4 Mg/2 Ml Vial) 4 mg IVPUSH Q8H PRN PRN Reason: Nausea and Vomiting Last Admin: 08/18/22 16:26 Dose: 4 mg Documented By: GANESH Pharmacy Consult (Consult Rx Perform Med Rec) 1 each MISCELLANE ONCE PRN PRN Reason: Consult order Sodium Chloride (0.9 % Sodium Chloride Flush 3 Ml Syringe) [facility] Last Admin: 08/19/22 08:28 Dose: 3 ml Documented By: CHRISTY Labs CBC & Chem 7: 08/20/22 05:07 08/20/22 05:07 Procedures Date of Service Date of Service: 08/19/22 Progress Note: A&P Assessment and plan (1) S/P right hemicolectomy: Status: Acute Assessment and Plan: looks well abdomen soft diet as tolerated out of bed to recliner path report pending healthcare proxy Ranjana at bedside physical therapy Time Spent With Patient Time: Total time spent is greater than 50% in coordination of care (as documented) at patient's floor/unit and/or counseling patient: Quality Stroke Does the patient have a stroke diagnosis?: No VTE Prior VTE?: No VTE Risk Level:: Medical - moderate - high VTE Device Contraindication: Treatment Not Indicated VTE Drug Contraindication: N/A - Med Ordered
--- NOTE | 2022-08-19 11:26 | MHC.CLN ---
F/U DIET ADVANCED TO REGULAR, BLAND 08/18. TAKING APPROXIMATELY 25% OF MEALS. ADDING ENSURE CLEAR TID TO PROVIDE ADDITIONAL 720 KCALS. 24 G PROTEIN. CONTINUE TO FOLLOW FOR INTAKE, DIET TOLERANCE, LABS.
--- NOTE | 2022-08-19 12:39 | MHC.CM.PN ---
Per MD rounds patient is not tolerating diet advancement- CM will continue to follow for Case Management needs.
[2022-08-19] MEDS: ondansetron HCL 4 MG/2 ML VIAL IVPUSH (14:34)
[2022-08-20] VITALS (11 sets, daily range): BP systolic 104–145; BP diastolic 53–67; PULSE 66–76; RESP 15–18; TEMP 36.1–37.7; O2SAT 91–96
[2022-08-20 06:24] LABS: Hematocrit 34.4 % (37.0-47.0); Hemoglobin 11.2 g/dl (12.0-16.0); Mean Corpuscular HGB Conc 32.6 g/dl (31.0-35.0); Mean Corpuscular Hemoglobin 28.3 pg (27.0-33.0); Mean Corpuscular Volume 86.9 fL (80.0-98.0); Mean Platelet Volume 10.5 fL (9.4-12.3); Platelet Count 215 X10*3/uL (160-400); Red Blood Count 3.96 X10*6/uL (4.20-5.50); White Blood Count 9.8 X10*3/uL (4.8-10.8)
[2022-08-20 06:51] LABS: Anion Gap 16 (12-20); Blood Urea Nitrogen 13 mg/dL (9-16); Calcium 7.7 mg/dL (8.4-10.2); Carbon Dioxide 24 mmol/L (22-29); Chloride 103 mmol/L (96-108); Estimated Glomerular Filt Rate > 60; Glucose Fasting 80 mg/dL (60-99); Potassium 3.6 mmol/L (3.3-5.1); Sodium 139 mmol/L (135-145)
--- NOTE | 2022-08-20 07:31 | PM.PNGS ---
Subjective Subjective Date of Service: 08/22/22 Interval history: says she feels better p.o. intake better less nausea has flatus Physical Exam Vital Signs: Vital Signs: Last Vital Signs Temp 96.9 F 08/20/22 04:00 Pulse 68 08/20/22 04:00 Resp 16 08/20/22 04:00 BP 134/61 08/20/22 04:00 Pulse Ox 91 L 08/20/22 04:00 O2 Del Method 08/20/22 04:00 O2 Flow Rate 2 08/15/22 18:37 BMI result Body Mass Index 22.4 Const: General: comfortable and no acute distress Resp: Effort & Inspection: normal respiratory effort Cardio: Rate: regular rate GI: Palpation (GI): Soft to palpation, not firm and no guarding Objective Data Active Medications Acetaminophen (Acetaminophen 325 Mg Tablet) 650 mg PO Q6H PRN PRN Reason: Pain, Mild (Pain Scale 1-3) Amlodipine Besylate (Amlodipine Besylate 5 Mg Tablet) 5 mg PO DAILY [facility]; Protocol Last Admin: 08/19/22 08:28 Dose: 5 mg Documented By: CHRISTY Docusate Sodium (Docusate Sodium 100 Mg Capsule) 100 mg PO BID [facility] Last Admin: 08/19/22 21:49 Dose: 100 mg Documented By: KEYON Famotidine (Famotidine/Pf 20 Mg/2 Ml Vial) 20 mg IVPUSH BID [facility] Last Admin: 08/19/22 21:49 Dose: 20 mg Documented By: KEYON Fentanyl (Fentanyl Citrate/Pf 100 Mcg/2 Ml Vial) 25 mcg IVPUSH Q5M PRN; Protocol PRN Reason: Pain, Moderate (Pain Scale 4-6 Last Admin: 08/15/22 17:29 Dose: 25 mcg Documented By: MIGUEL Hydromorphone HCl (Hydromorphone Hcl 0.5 Mg/0.5 Ml Syringe) 0.25 mg IVPUSH Q5M PRN; Protocol PRN Reason: Pain, Severe (Pain Scale 7-10) Hydromorphone HCl (Hydromorphone Hcl 0.5 Mg/0.5 Ml Syringe) 0.25 mg IVPUSH Q2H PRN; Protocol PRN Reason: Pain, Moderate (Pain Scale 4-6 Last Admin: 08/15/22 21:16 Dose: 0.25 mg Documented By: KEYON Hydromorphone HCl (Hydromorphone Hcl 0.5 Mg/0.5 Ml Syringe) 0.5 mg IVPUSH Q2H PRN; Protocol PRN Reason: Pain, Severe (Pain Scale 7-10) Last Admin: 08/17/22 06:29 Dose: 0.5 mg Documented By: VIVI Metoprolol Tartrate (Metoprolol Tartrate 25 Mg Tablet) 25 mg PO BID [facility]; Protocol Last Admin: 08/19/22 21:49 Dose: 25 mg Documented By: KEYON Ondansetron HCl (Ondansetron Hcl 4 Mg/2 Ml Vial) 4 mg IVPUSH Q8H PRN PRN Reason: Nausea and Vomiting Last Admin: 08/19/22 14:34 Dose: 4 mg Documented By: CHRISTY Pharmacy Consult (Consult Rx Perform Med Rec) 1 each MISCELLANE ONCE PRN PRN Reason: Consult order Sodium Chloride (0.9 % Sodium Chloride Flush 3 Ml Sy[facility]) [facility] Last Admin: 08/19/22 21:49 Dose: 3 ml Documented By: KEYON Labs CBC & Chem 7: 08/20/22 05:07 08/20/22 05:07 Labs: Laboratory Results - last 24 hr 08/20/22 08/20/22 05:07 05:07 MCV 86.9 MCH 28.3 MCHC 32.6 RDW 15.0 Plt Count 215 MPV 10.5 Absolute Nucleated RBC 0.000 Nucleated RBC % (auto) 0.0 Anion Gap 16 Estim Creat Clear Calc 56.0 Estimated GFR > 60 Fasting Glucose 80 Calcium 7.7 L Procedures Date of Service Date of Service: 08/20/22 Progress Note: A&P Assessment and plan (1) S/P right hemicolectomy: Status: Acute Assessment and Plan: looks well push p.o. intake out of bed to chair, physical therapy DC Givens path pending start discharge planning to rehab Time Spent With Patient Time: Total time spent is greater than 50% in coordination of care (as documented) at patient's floor/unit and/or counseling patient: Quality Stroke Does the patient have a stroke diagnosis?: No VTE Prior VTE?: No VTE Risk Level:: Medical - moderate - high VTE Device Contraindication: Treatment Not Indicated VTE Drug Contraindication: N/A - Med Ordered
[2022-08-20] MEDS: amLODIPine Besylate 5 MG TABLET PO (08:48)
[2022-08-20] MEDS: Metoprolol Tartrate 25 MG TABLET PO ×2 (08:48→20:02)
[2022-08-20] MEDS: Docusate Sodium 100 MG CAPSULE PO (08:48)
[2022-08-20] MEDS: Famotidine/PF 20 MG/2 ML VIAL IVPUSH ×2 (08:48→20:02)
[2022-08-20] MEDS: 0.9 % Sodium Chloride Flush 3 ML SYRINGE IVFLUSH ×3 (08:49→20:06)
--- NOTE | 2022-08-20 09:59 | MHC.CM.PN ---
[facility]LE[facility] MARQUEZ AND DONTRELL FOLLOWING. PER REVIEW OF NOTES, STARTING TO TOLERATE DIET AND FEELING BETTER. CM CONTINUING TO FOLLOW
--- NOTE | 2022-08-20 11:10 | HO.PM.IMPN ---
Subjective Subjective Date of Service: 08/20/22 Interval History: cc: abd pain, vomitting interval history: now tolerating solids Cardiovascular Cardiovascular: Reports no additional cardiovascular complaints Respiratory Respiratory: Reports no additional respiratory complaints Physical Exam Vital Signs: Vital Signs: Last Vital Signs Temp 99.8 F 08/20/22 07:42 Pulse 69 08/20/22 07:42 Resp 17 08/20/22 07:42 BP 142/64 H 08/20/22 07:42 Pulse Ox 93 08/20/22 07:42 O2 Del Method 08/20/22 07:42 O2 Flow Rate 2 08/15/22 18:37 BMI result Body Mass Index 22.4 Const: General: comfortable and no acute distress Resp: Effort & Inspection: normal respiratory effort Cardio: Rate: regular rate GI: Palpation (GI): Soft to palpation, not firm and no guarding Objective Data Active Medications Acetaminophen (Acetaminophen 325 Mg Tablet) 650 mg PO Q6H PRN PRN Reason: Pain, Mild (Pain Scale 1-3) Amlodipine Besylate (Amlodipine Besylate 5 Mg Tablet) 5 mg PO DAILY [facility]; Protocol Last Admin: 08/20/22 08:48 Dose: 5 mg Documented By: CHRISTY Docusate Sodium (Docusate Sodium 100 Mg Capsule) 100 mg PO BID [facility] Last Admin: 08/20/22 08:48 Dose: 100 mg Documented By: CHRISTY Famotidine (Famotidine/Pf 20 Mg/2 Ml Vial) 20 mg IVPUSH BID [facility] Last Admin: 08/20/22 08:48 Dose: 20 mg Documented By: CHRISTY Fentanyl (Fentanyl Citrate/Pf 100 Mcg/2 Ml Vial) 25 mcg IVPUSH Q5M PRN; Protocol PRN Reason: Pain, Moderate (Pain Scale 4-6 Last Admin: 08/15/22 17:29 Dose: 25 mcg Documented By: MIGUEL Hydromorphone HCl (Hydromorphone Hcl 0.5 Mg/0.5 Ml Syringe) 0.25 mg IVPUSH Q5M PRN; Protocol PRN Reason: Pain, Severe (Pain Scale 7-10) Hydromorphone HCl (Hydromorphone Hcl 0.5 Mg/0.5 Ml Syringe) 0.25 mg IVPUSH Q2H PRN; Protocol PRN Reason: Pain, Moderate (Pain Scale 4-6 Last Admin: 08/15/22 21:16 Dose: 0.25 mg Documented By: KEYON Hydromorphone HCl (Hydromorphone Hcl 0.5 Mg/0.5 Ml Syringe) 0.5 mg IVPUSH Q2H PRN; Protocol PRN Reason: Pain, Severe (Pain Scale 7-10) Last Admin: 08/17/22 06:29 Dose: 0.5 mg Documented By: VIVI Metoprolol Tartrate (Metoprolol Tartrate 25 Mg Tablet) 25 mg PO BID [facility]; Protocol Last Admin: 08/20/22 08:48 Dose: 25 mg Documented By: CHRISTY Ondansetron HCl (Ondansetron Hcl 4 Mg/2 Ml Vial) 4 mg IVPUSH Q8H PRN PRN Reason: Nausea and Vomiting Last Admin: 08/19/22 14:34 Dose: 4 mg Documented By: CHRISTY Pharmacy Consult (Consult Rx Perform Med Rec) 1 each MISCELLANE ONCE PRN PRN Reason: Consult order Sodium Chloride (0.9 % Sodium Chloride Flush 3 Ml Syringe) 3 ml IVFLUSH [facility] Last Admin: 08/20/22 08:49 Dose: 3 ml Documented By: CHRISTY Labs CBC & Chem 7: 08/20/22 05:07 08/20/22 05:07 Labs: Laboratory Results - last 24 hr 08/20/22 08/20/22 05:07 05:07 MCV 86.9 MCH 28.3 MCHC 32.6 RDW 15.0 Plt Count 215 MPV 10.5 Absolute Nucleated RBC 0.000 Nucleated RBC % (auto) 0.0 Anion Gap 16 Estim Creat Clear Calc 56.0 Estimated GFR > 60 Fasting Glucose 80 Calcium 7.7 L Assessment and Plan (1) Protein calorie malnutrition: Status: Acute (2) Partial small bowel obstruction: Status: Acute (3) Colonic mass: Status: Acute Plan 77-year-old female with past medical history of CAD, hypercholesterolemia, history of cholelithiasis presents to the hospital with complaints of nausea vomiting, and and decreased oral intake found to have following partial small bowel obstruction secondary to cecal mass concerning for malignancy Zofran for nausea POD 5 (08/15/22) hemicolectomy tolerating solids stress induced cardiomyopathy euvolemic continue beat marley colonic mass concerning for malignancy with elevated CEA, no obvious lymph nodes enlargement or metastasis noted Oncology input appreciated, CT scan of the chest - no obvious metastasis holding asa follow up pathology mild protein calorie malnutrition with adult failure to thrive 2/2 anorexia secondary to above, 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
--- NOTE | 2022-08-20 13:53 | MHC.CM.PN ---
T/W REACHED OUT TO ASHLEIGH MARQUEZ AND DONTRELL INFORMING OF ANTICIPATED DC TODAY STILL AWAITING BED OFFER AND START OF AUTH PROCESS.
--- NOTE | 2022-08-20 15:11 | MHC.CM.PN ---
HCP COMPLETED AND UPLOADED INTO [facility]. DONTRE[facility] NO LONGER OFFERING. FERNANDA MARQUEZ HAS NOT RESPONDED. MIGUEL HAS NOT RESPONDED. PATIENT DENIES REFERRAL TO [facility]
[2022-08-20 16:02] LABS: Influenza A PCR NEGATIVE (Negative); Influenza B PCR NEGATIVE (Negative); Resp Syncy Virus RNA Qual PCR NEGATIVE (Negative); SARS COV2 PCR INHOUSE NEGATIVE (Negative)
[2022-08-20] MEDS: ondansetron HCL 4 MG/2 ML VIAL IVPUSH (18:37)
--- NOTE | 2022-08-21 03:25 | PC.NURSE ---
Pt unable to void post Givens removal. Bladder scanned of 293 mL; hospitalist notified, awaiting response.
[2022-08-21 03:32] VITALS: BP 145/64; PULSE 70; RESP 18; TEMP 36.6; O2SAT 91
--- NOTE | 2022-08-21 05:45 | PC.NURSE ---
Pt bladder scanned for 302 mL at this time, placed on a bedpan to attempt to self void, not able to void. Hospitalist updated, no action taken.
--- NOTE | 2022-08-21 07:36 | PM.PNGS ---
Subjective Subjective Date of Service: 08/21/22 Patient reports: no new complaints, feels better, tolerating liquids well and flatus Interval history: The chart is reviewed. Patient reports ongoing flatus and a bowel movement a couple days ago. She denies any pain including chest pain, difficulty breathing or shortness of breath. However, the patient notes continued issues with mobility and has deconditioned to the point of not being able to stand. She states she does not recall when PT work with her. Patient states she is tolerating her current diet but does report some bloating. She denies any nausea, belching, vomiting or dysphagia. Physical Exam Vital Signs: Vital Signs: Last Vital Signs Temp 97.9 F 08/21/22 03:32 Pulse 70 08/21/22 03:32 Resp 18 08/21/22 03:32 BP 145/64 H 08/21/22 03:32 Pulse Ox 91 L 08/21/22 03:32 O2 Del Method 08/21/22 03:32 O2 Flow Rate 2 08/15/22 18:37 BMI result Body Mass Index 22.4 The patient is nontoxic and is in good spirits. No focal neurological deficit is noted this morning. Abdomen looks a little bloated and has some tympany but the incision is healing well. No tenderness is appreciated. No cellulitis or drainage is noted from any of the incisions. Objective Data Active Medications Acetaminophen (Acetaminophen 325 Mg Tablet) 650 mg PO Q6H PRN PRN Reason: Pain, Mild (Pain Scale 1-3) Amlodipine Besylate (Amlodipine Besylate 5 Mg Tablet) 5 mg PO DAILY [facility]; Protocol Last Admin: 08/20/22 08:48 Dose: 5 mg Documented By: CHRISTY Docusate Sodium (Docusate Sodium 100 Mg Capsule) 100 mg PO BID [facility] Last Admin: 08/20/22 20:06 Dose: Not Given Documented By: REGINALDO Non-Admin Reason: pt reported diarrhea Famotidine (Famotidine/Pf 20 Mg/2 Ml Vial) 20 mg IVPUSH BID [facility] Last Admin: 08/20/22 20:02 Dose: 20 mg Documented By: REGINALDO Hydromorphone HCl (Hydromorphone Hcl 0.5 Mg/0.5 Ml Syringe) 0.25 mg IVPUSH Q5M PRN; Protocol PRN Reason: Pain, Severe (Pain Scale 7-10) Hydromorphone HCl (Hydromorphone Hcl 0.5 Mg/0.5 Ml Syringe) 0.25 mg IVPUSH Q2H PRN; Protocol PRN Reason: Pain, Moderate (Pain Scale 4-6 Last Admin: 08/15/22 21:16 Dose: 0.25 mg Documented By: KEYON Hydromorphone HCl (Hydromorphone Hcl 0.5 Mg/0.5 Ml Syringe) 0.5 mg IVPUSH Q2H PRN; Protocol PRN Reason: Pain, Severe (Pain Scale 7-10) Last Admin: 08/17/22 06:29 Dose: 0.5 mg Documented By: VIVI Metoprolol Tartrate (Metoprolol Tartrate 25 Mg Tablet) 25 mg PO BID [facility]; Protocol Last Admin: 08/20/22 20:02 Dose: 25 mg Documented By: REGINALDO Ondansetron HCl (Ondansetron Hcl 4 Mg/2 Ml Vial) 4 mg IVPUSH Q8H PRN PRN Reason: Nausea and Vomiting Last Admin: 08/20/22 18:37 Dose: 4 mg Documented By: CHRISTY Pharmacy Consult (Consult Rx Perform Med Rec) 1 each MISCELLANE ONCE PRN PRN Reason: Consult order Sodium Chloride (0.9 % Sodium Chloride Flush 3 Ml Syringe) 3 ml IVFLUSH [facility] Last Admin: 08/20/22 20:06 Dose: 3 ml Documented By: REGINALDO Labs CBC & Chem 7: 08/20/22 05:07 08/20/22 05:07 Labs: Laboratory Results - last 24 hr 08/20/22 13:16 Influenza Type A (PCR) NEGATIVE Influenza Type B (PCR) NEGATIVE RSV RNA Qual (PCR) NEGATIVE SARS-CoV-2 RNA (RT-PCR) NEGATIVE Procedures Date of Service Date of Service: 08/21/22 Progress Note: A&P Assessment and plan (1) S/P right hemicolectomy: Status: Acute (2) Partial small bowel obstruction: Status: Acute (3) Colonic mass: Status: Acute (4) Protein calorie malnutrition: Status: Acute (5) History of CVA (cerebrovascular accident): Status: Acute (6) CAD (coronary artery disease): Status: Acute (7) Frailty syndrome in geriatric patient: Status: Acute Plan Continue present management. Encourage p.o./protein intake Continue PT Await pathology Surgically stable for transfer to rehab as per Medicine Time Spent With Patient Time: Total time spent is greater than 50% in coordination of care (as documented) at patient's floor/unit and/or counseling patient: Quality Stroke Does the patient have a stroke diagnosis?: No VTE Prior VTE?: No VTE Risk Level:: Medical - moderate - high VTE Device Contraindication: Treatment Not Indicated VTE Drug Contraindication: N/A - Med Ordered
[2022-08-21 07:51] VITALS: BP 158/72; PULSE 70; RESP 18; TEMP 36.4; O2SAT 95
[2022-08-21] MEDS: 0.9 % Sodium Chloride Flush 3 ML SYRINGE IVFLUSH ×2 (08:22→15:49)
[2022-08-21] MEDS: Famotidine/PF 20 MG/2 ML VIAL IVPUSH (08:22)
[2022-08-21] MEDS: amLODIPine Besylate 5 MG TABLET PO (08:22)
[2022-08-21] MEDS: Metoprolol Tartrate 25 MG TABLET PO (08:22)
[2022-08-21] MEDS: Docusate Sodium 100 MG CAPSULE PO (08:22)
--- NOTE | 2022-08-21 10:37 | MHC.CLN ---
F/U DIET=REGULAR, BLAND (SINCE 08/18). ENSURE CLEAR TID TO PROVIDE ADDITIONAL 720 KCALS. 24 G PROTEIN. INTAKE USUALLY 25% WITH IMPROVED INTAKE NOTED YESTERDAY WITH 2 MEALS X 100%. CONTINUE TO FOLLOW FOR INTAKE, DIET TOLERANCE, LABS.
[2022-08-21 11:09] VITALS: BP 123/58; PULSE 62; RESP 18; TEMP 36.3; O2SAT 95
--- NOTE | 2022-08-21 11:25 | HO.PM.IMPN ---
Subjective Subjective Date of Service: 08/21/22 Interval History: the patient was seen and evaluated this morning Laying in bed, tolerating diet Complaining of episodes of nausea Had a bowel movement No reported other overnight events. Systemic review: No fever, chills No chest pain, palpitation No shortness of breath or coughing Improved nausea with no vomiting No urinary symptoms No any rash or wounds Physical Exam Vital Signs: Vital Signs: Last Vital Signs Temp 97.4 F 08/21/22 11:09 Pulse 62 08/21/22 11:09 Resp 18 08/21/22 11:09 BP 123/58 L 08/21/22 11:09 Pulse Ox 95 08/21/22 11:09 O2 Del Method 08/21/22 11:09 O2 Flow Rate 2 08/15/22 18:37 BMI result Body Mass Index 22.4 Const: Other: Constitutional : Alert, interactive, not in distress Neck : Normal inspection, Supple Cardiovascular : RRR, no JVP, no lower extremity edema Respiratory : fair bilateral air entry, no crackles, wheezes or rhonchi Gastrointestinal: soft, lax, Normal bowel sounds, no tenderness with palpation, surgical wound clean Skin : Warm, Dry Neurological : Alert & oriented x3, No focal deficit Objective Data Active Medications Acetaminophen (Acetaminophen 325 Mg Tablet) 650 mg PO Q6H PRN PRN Reason: Pain, Mild (Pain Scale 1-3) Amlodipine Besylate (Amlodipine Besylate 5 Mg Tablet) 5 mg PO DAILY [facility]; Protocol Last Admin: 08/21/22 08:22 Dose: 5 mg Documented By: JAM Docusate Sodium (Docusate Sodium 100 Mg Capsule) 100 mg PO BID [facility] Last Admin: 08/21/22 08:22 Dose: 100 mg Documented By: JAM Famotidine (Famotidine/Pf 20 Mg/2 Ml Vial) 20 mg IVPUSH BID [facility] Last Admin: 08/21/22 08:22 Dose: 20 mg Documented By: JAM Hydromorphone HCl (Hydromorphone Hcl 0.5 Mg/0.5 Ml Syringe) 0.25 mg IVPUSH Q5M PRN; Protocol PRN Reason: Pain, Severe (Pain Scale 7-10) Hydromorphone HCl (Hydromorphone Hcl 0.5 Mg/0.5 Ml Syringe) 0.25 mg IVPUSH Q2H PRN; Protocol PRN Reason: Pain, Moderate (Pain Scale 4-6 Last Admin: 08/15/22 21:16 Dose: 0.25 mg Documented By: KEYON Hydromorphone HCl (Hydromorphone Hcl 0.5 Mg/0.5 Ml Syringe) 0.5 mg IVPUSH Q2H PRN; Protocol PRN Reason: Pain, Severe (Pain Scale 7-10) Last Admin: 08/17/22 06:29 Dose: 0.5 mg Documented By: VIVI Metoprolol Tartrate (Metoprolol Tartrate 25 Mg Tablet) 25 mg PO BID [facility]; Protocol Last Admin: 08/21/22 08:22 Dose: 25 mg Documented By: JAM Ondansetron HCl (Ondansetron Hcl 4 Mg/2 Ml Vial) 4 mg IVPUSH Q8H PRN PRN Reason: Nausea and Vomiting Last Admin: 08/20/22 18:37 Dose: 4 mg Documented By: CHRISTY Pharmacy Consult (Consult Rx Perform Med Rec) 1 each MISCELLANE ONCE PRN PRN Reason: Consult order Sodium Chloride (0.9 % Sodium Chloride Flush 3 Ml Syringe) 3 ml IVFLUSH [facility] Last Admin: 08/21/22 08:22 Dose: 3 ml Documented By: JAM Labs CBC & Chem 7: 08/20/22 05:07 08/20/22 05:07 Labs: Laboratory Results - last 24 hr 08/20/22 13:16 Influenza Type A (PCR) NEGATIVE Influenza Type B (PCR) NEGATIVE RSV RNA Qual (PCR) NEGATIVE SARS-CoV-2 RNA (RT-PCR) NEGATIVE Assessment and Plan (1) Frailty syndrome in geriatric patient: Status: Acute (2) S/P right hemicolectomy: Status: Acute Plan 77-year-old female with past medical history of CAD, hypercholesterolemia, history of cholelithiasis presents to the hospital with complaints of nausea vomiting, and and decreased oral intake found to have following partial small bowel obstruction POD 6 (08/15/22) hemicolectomy secondary to cecal mass concerning for malignancy, pathology still pending Zofran for nausea tolerating solids stress induced cardiomyopathy euvolemic continue beat marley colonic mass concerning for malignancy with elevated CEA, no obvious lymph nodes enlargement or metastasis noted Oncology input appreciated, CT scan of the chest - no obvious metastasis holding asa follow up pathology mild protein calorie malnutrition with adult failure to thrive 2/2 anorexia secondary to above, 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
--- NOTE | 2022-08-21 12:44 | MHC.CM.PN ---
PATIENT AND HCP CARLI ([phone]) AWARE THAT [facility] IS ONLY BED OFFER. [facility] HAS STARTED THE AUTH PROCESS.
[2022-08-21 14:00] VITALS: O2SAT 94
--- NOTE | 2022-08-21 14:56 | MHC.CM.PN ---
[facility] OFFERING A BED TODAY AUTH RECEIVED. COVID (-) PATIENT, RN, UNIT AND HCP CARLI [phone]) MADE AWARE. IMM 08/20 IN CHART
[2022-08-21 15:00] VITALS: BP 146/64; PULSE 62; RESP 18; TEMP 36.9; O2SAT 95
--- NOTE | 2022-08-21 15:27 | P.DS_ITS ---
DS: Providers Provider Date of Service: 08/21/22 Date of admission: 08/10/22 21:05 Primary care physician: Bong Bustamante MD Consults: 08/10/22 19:01 Consult to General Surgery Stat Consulting Provider: Sagar Linares Reason for consultation: partial SBO 08/10/22 21:03 Consult to Gastroenterology Routine Consulting Provider: Michel Flynn Reason for consultation: masslike thickenin in cecum Has provider been notified: No 08/12/22 10:20 Consult to Hematology / Oncology Routine Consulting Provider: Cari Quiñonez Reason for consultation: colon mass, bowel obstruction, elevated CEA for eval and rec. 08/12/22 14:42 Consult to Cardiology Routine Consulting Provider: Hero Casanova Reason for consultation: cardiac clearance for surgery, planned for Wed. 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 peripheral artery ds s/p left carotid endarterectomy presents to the hospital with complaints of loss of appetite as well as nausea vomiting.? Patient reports that her symptoms started on the 23 of July where she started having significant nausea, and dry heaving and inability to eat.? She reports that she was mostly on liquids water and sometimes some wall falls but unable to eat much else due to the significant nausea.? She reports that her symptoms slightly improved but returned significantly worse on day of presentation with nausea and several episodes of vomiting the night prior, she reports generalized diffuse abdominal pain, reports no constipation and has been passing small amount of stool, denies having any fever chills, reports no hist ory of colonoscopy.? Reports family history of prostate cancer in her father.? Reports significant weight loss as a result of her inability to eat as well as generalized weakness that was getting worse and worse every day.? Patient denies any headache no change in vision, no chest pain, no palpitations, no urinary symptoms and no extremity edema.? On arrival to the ED patient hemodynamically stable with slightly elevated blood pressure Labs are significant for WBC count of 10.8, hemoglobin of 11.1, hematocrit 34.8, labs otherwise unremarkable Abdomen pelvic CT shows lobular diffuse masslike thickening of the cecum and ileocecal valve causing a partial small-bowel obstruction, this is concerning for colonic neoplasm.? Developing porcelain gallbladder General surgery was consulted by ED, recommended GI evaluation Hospital course The patient was admitted for evaluation of partial small-bowel obstruction secondary to cecal mass concerning for malignancy. The patient was treated conservatively at the beginning with no significant improvement as she was evaluated by surgical team who ended up doing hemicolectomy on 08/15/2022 with anastomosis. The patient start to improve as she was able to tolerate diet, passing gas and had bowel movement prior to discharge planning. The mass was noticed on CT scan with no obvious lymph node enlargement. Elevated CEA. Seen by Oncology a CT scan of the chest was negative for any metastasis. Pathology still pending and will be reviewed after discharge. Noted to have elevated troponin. Evaluated by Cardiology who recommended starting beta-marley for stress-induced cardiomyopathy. Blood pressure significantly elevated. Amlodipine was started with fair response. Will need close monitoring after discharge. Start amlodipine 5 mg daily for blood pressure control and monitor blood pressure at home Start metoprolol 25 mg twice daily for stress induced cardiomyopathy Use Colace daily to help with bowel movement, avoid constipation, hold Colace for diarrhea To follow-up with Dr. Lizzie morel as outpatient within 2 weeks Time Spent with Patient Time attestation: Total time spent providing and/or coordinating discharge services: Discharge coordination time: Greater than 30 minutes Quality: Safe Use of Opioids Does Pt have an Active Cancer Diagnosis on the Problem List?: No Quality: Stroke Does the patient have a stroke diagnosis?: No Physical Exam Vital Signs: Vital Signs: Last Vital Signs Temp 98.5 F 08/21/22 15:00 Pulse 62 08/21/22 15:00 Resp 18 08/21/22 15:00 BP 146/64 H 08/21/22 15:00 Pulse Ox 95 08/21/22 15:00 O2 Del Method 08/21/22 15:00 O2 Flow Rate 2 08/15/22 18:37 BMI result Body Mass Index 22.4 Const: Other: Constitutional : Alert, interactive, not in distress Neck : Normal inspection, Supple Cardiovascular : RRR, no JVP, no lower extremity edema Respiratory : fair bilateral air entry, no crackles, wheezes or rhonchi Gastrointestinal: soft, lax, Normal bowel sounds, no tenderness with palpation, surgical wound clean Skin : Warm, Dry Neurological : Alert & oriented x3, No focal deficit DS: Data Data Completed and Pending Pending studies at discharge: Pending at discharge 08/15/22 15:48 Surgical [PTH] Routine Labs on day of discharge: Laboratory Results - last 24 hr 08/20/22 13:16 Influenza Type A (PCR) NEGATIVE Influenza Type B (PCR) NEGATIVE RSV RNA Qual (PCR) NEGATIVE SARS-CoV-2 RNA (RT-PCR) NEGATIVE Imaging CT scan - abdomen: Radiologist's impression: ITS Impressions Abdomen/Pelvis CT 08/10/22 17:53 IMPRESSION: 1. Lobular diffuse masslike thickening of the cecum and ileocecal valve causing a partial small bowel obstruction. This is concerning for colonic neoplasm. 2. Developing porcelain gallbladder. Fleischner guidelines were followed. Chest CT 08/13/22 09:45 IMPRESSION: Small bilateral pleural effusions and bilateral lower lobe subsegmental atelectasis. Other areas of scarring or subsegmental atelectasis in the right upper lobe. 3 mm right middle lobe nodule. Emphysema. Fleischner guidelines were followed. Discharge Plan Discharge Anticipated Discharge Date/Time: 08/21/22 15:20 Patient Disposition: [facility] Discharge Diagnosis: Partial small-bowel obstruction Colonic mass Stress-induced cardiomyopathy Referrals: [facility] [Outside] - 1 Week Bong Bustamante MD [Primary Care Provider] - 1 Week Discharge Medications: New amlodipine 5 mg Tablet 5 mg PO DAILY 30 Days Qty: 30 0RF Protocol: Hold for SBP< HOLD for SBP < : 90 docusate sodium 100 mg Capsule 100 mg PO DAILY Qty: 30 0RF metoprolol tartrate 25 mg Tablet 25 mg PO BID 30 Days Qty: 60 0RF Protocol: Hold for SBP/HR < HOLD for SBP < : 90 HOLD for HR < : 60 Continued aspirin 81 mg Tablet,Delayed Release (Dr/Ec) 81 mg DAILY Discharge Orders: Discharge Order (Routine); Ordered 08/21/22 Ordered By: Anitra Vargas Diet: Advance to usual diet Activity on Discharge: As tolerated Stand Alone Forms: Patient Portal Discharge page Care Plan Goals: Read below Health Concerns: Read below Plan of Treatment: Read below Assessment: You were admitted to the hospital for evaluation of abdominal pain. Images were consistent with small-bowel obstruction with suspicious mass in the colon area. Surgical intervention was done with partial colon removal and anastomosis with good result as you were able to tolerate diet pass gas and stool as surgery team monitor 2 during the hospital stay. Biopsy pathology result still pending from the colon mass. Start amlodipine 5 mg daily for blood pressure control and monitor blood pressure at home Start metoprolol 25 mg twice daily for stress induced cardiomyopathy Use Colace daily to help with bowel movement, avoid constipation, hold Colace for diarrhea To follow-up with Dr. Lizzie morel as outpatient within 2 weeks
[2022-08-21 16:00] VITALS: O2SAT 95
== END 2022-08-21 18:03 | disposition skilled nursing facility (03) | DRG 330 ==
LOC: HO.ED 21:28 → HO.EDOVER 21:57 → HO.S3 08-11 07:27
PROVIDERS: Internal Medicine; Nurse Practitioner Family; Physician Assistant Surgical; Surgery; Admitting Provider Internal Medicine; Emergency Provider Emergency Medicine; PCP Family Medicine; Visit Provider Student in an Organized Health Care Education/Training Program
PROC: 0DTE0ZZ Resection of Large Intestine, Open Approach (ICD-10-PCS; principal; 2022-08-15 12:30)
DX: C18.0 Malignant neoplasm of cecum (principal); E44.1 Mild protein-calorie malnutrition; I51.81 Takotsubo syndrome; I25.10 Atherosclerotic heart disease of native coronary artery without angina pectoris; E78.5 Hyperlipidemia, unspecified; K82.8 Other specified diseases of gallbladder; D63.0 Anemia in neoplastic disease; R62.7 Adult failure to thrive; R54 Age-related physical debility; Z68.22 Body mass index [BMI] 22.0-22.9, adult; Z20.822 Contact with and (suspected) exposure to COVID-19; Z86.73 Personal history of transient ischemic attack (TIA), and cerebral infarction without residual deficits; Z87.898 Personal history of other specified conditions; Z87.891 Personal history of nicotine dependence; Z88.8 Allergy status to other drugs, medicaments and biological substances; Z79.82 Long term (current) use of aspirin; Z79.899 Other long term (current) drug therapy
CPT/HCPCS: 0241U; 36415; 71260; 74177; 80048; 80053; 81210; 82040; 82378; 83690; 83735; 84100; 84134; 84478; 84484; 85025; 85027; 86850; 86900; 86901; 87635; 88309; 88341; 88342; 93005; 93306; 97110; 97116; 97162; 99285; J0131; J1170; J2270; J2370; J2405; J2795; J3010; Q9957; Q9967

== ENCOUNTER → 2022-09-12 08:58 | Outpatient (BNV) | payer MEDICARE, SELFPAY | PROVIDERS: PCP Hospitalist; Visit Provider Internal Medicine Medical Oncology | DX: C18.9 Malignant neoplasm of colon, unspecified (principal) | CPT/HCPCS: 99204; 99213; 99214; 99215 ==

== ENCOUNTER 2023-01-30 09:08 | Outpatient (REF) | payer MEDICARE, SELFPAY ==
--- NOTE | ~2023-01-30 | CT_ITS ---
EXAMINATION: CT CHEST, ABDOMEN AND PELVIS WITH IV CONTRAST CLINICAL INDICATION: Colon cancer staging. COMPARISON: CT chest, abdomen and pelvis with IV contrast 08/13/2022 and 08/10/2022. TECHNIQUE: 5 mm thin axial and reformatted 3 mm thin sagittal and coronal images of chest, abdomen and pelvis were obtained following IV 85 mL Omnipaque 350. DLP: 97.9 mGy-cm. This CT examination was performed using dose optimization technique as appropriate, variously including the following: Automated exposure control Adjustment of MA and/or KV according to patient size(this includes techniques or standardized protocols for targeted exams where dose is matched to indication/reason for exam; extremities or head. Use of iterative reconstruction techniques. FINDINGS: CHEST: Lungs: There is centrilobular emphysema. There are no pulmonary nodules, mass or consolidation. Previously described 3 mm nodule right middle lobe is not seen at this time. There is minimal 3 mm focal thickening along the right major fissure axial image 301/6. Minimal atelectatic changes right middle lobe medially. Mediastinum: Thyroid lobes are symmetrical and normal. The central trachea and the bronchi are widely patent. The thoracic arch and the heart size is normal. No abnormal-sized mediastinal or hilar lymph nodes seen. The tracheal-bronchial tree is widely patent. No pericardial effusion seen. Pleura: There is no pleural effusion or thickening. Minimal left apical pleural thickening seen. Axilla: There is no abnormal size axillary lymph nodes. The chest wall is unremarkable. Osseous Structures: No aggressive lytic or sclerotic process seen. ABDOMEN AND PELVIS: Liver, Ducts and Gallbladder: The liver is homogeneous in density, normal size and contour. No focal lesion seen. No intrahepatic or extrahepatic ductal dilatation seen. 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 No radiopaque gallstone seen. Spleen: Unremarkable. Pancreas: Unremarkable. Bilateral Adrenal Glands: Unremarkable. Kidneys and Ureters: Both kidneys are symmetrical in size, shape and position. No radiopaque renal calculi, enhancing renal mass or hydronephrosis. There is an extrarenal left kidney pelvis. GI Tract: There is large amount of stool seen throughout the colon consistent with [id number] constipation. There are postsurgical changes in the right lower quadrant around the cecum with widely patent anastomosis. No recurrent mass seen. The small bowel loops are nondilated. Lymphovascular Structures: The abdominal aorta is normal caliber except for dystrophic calcification. There is a hypodense aortocaval 2.1 x 1.8 cm low-density lymph node measuring 57 Hounsfield units on axial image 28/3. It is new since the previous study. There are additional small lymph nodes visualized. Abdominal Wall: Unremarkable. Pelvis: The urinary bladder is nondistended. The uterus is not visualized likely surgically removed. Osseous Structures: There is a Schmorl's node superior endplate L4 vertebra and mild superior end plate deformity L2 vertebra, stable. CT/CT abdomen pelvis w IV con IMPRESSION: Unremarkable CT chest with no pulmonary nodule or mass seen. Previously seen right middle lobe pulmonary nodule is not visualized. Minimal atelectatic changes right middle lobe. There is a new aortocaval abnormal lymph node. Likely metastatic. Postsurgical changes in the cecal region with patent lumen. There is significant constipation. No recurrent mass seen.
== END 2023-01-30 09:09 | disposition home or self-care (01) ==
LOC: HO.CT 09:08
PROVIDERS: PCP Family Medicine; Visit Provider Internal Medicine
DX: C18.9 Malignant neoplasm of colon, unspecified (principal)
CPT/HCPCS: 71260; 74177

== ENCOUNTER → 2023-02-04 12:40 | Outpatient (BNVA) | payer MEDICARE, SELFPAY | PROVIDERS: PCP Family Medicine; Referring Provider Family Medicine; Visit Provider Internal Medicine | DX: I25.10 Atherosclerotic heart disease of native coronary artery without angina pectoris (principal); I51.81 Takotsubo syndrome | CPT/HCPCS: 99212 ==

== ENCOUNTER → 2023-04-23 10:33 | Outpatient (REF) | payer MEDICARE, SELFPAY ==
--- NOTE | ~2023-04-23 | NM_ITS ---
EXAMINATION: NM BONE SCAN OF THE WHOLE BODY CLINICAL INFORMATION: Back pain. Suspected bone metastases. Colon cancer. COMPARISON: CT of the chest abdomen and pelvis done on 01/30/2023. TECHNIQUE: Multiple gamma scintillation camera images of the whole body were performed 2.5 hours following the intravenous administration of 21 mCi Tc-99m MDP. The radiotracer was injected through left antecubital superficial vein without complications. FINDINGS: In the head, no suspicious focal lesion. In the thoracic cage and upper extremities, solitary focal intense increased radiotracer activity is present along the anterior medial aspect of the likely right seventh rib. The remainder of the entire thoracic cage and both upper extremities otherwise appear unremarkable. In the spine, linear intense abnormal increased radiotracer activity is present at L5, most consistent with compression fracture, of indeterminate etiology, new since prior CT study done on 01/30/2023. Radiographic correlation is recommended. In the pelvis, no suspicious focal lesion. In the lower extremities, no suspicious focal lesion. No other definite bony abnormalities are noted. The urinary bladder and faint visualization of both kidneys are noted. NM/NM bone scan whole body IMPRESSION: 1. Linear intense abnormal increased radiotracer activity is present at L5, most consistent with compression fracture, new since prior CT of the abdomen and pelvis done on 01/30/2023, of indeterminate etiology. Radiographic correlation is recommended. 2. Solitary focal intense radiotracer activity is noted anteromedial aspect of likely right seventh rib, indeterminate in etiology. Radiographic correlation is recommended.
== END ==
LOC: HO.NUCMED 10:33
PROVIDERS: PCP Family Medicine; Visit Provider Internal Medicine
DX: C18.9 Malignant neoplasm of colon, unspecified (principal)
CPT/HCPCS: 78306; A9503

== ENCOUNTER 2023-05-15 09:03 | Outpatient (AMB) | payer MEDICARE, SELFPAY ==
--- NOTE | 2023-05-15 09:08 | A.OFFVIS_ITS ---
Intake Vital Signs 05/15/23 09:19 Height 5 ft 7 in Weight 130 lb 2 oz BMI 20.4 BP 123/56 L Blood Pressure Location Rt brachial Position Sitting Pulse 80 Pulse Source Pulse Oximeter Pulse Oximetry (%) 96 Oxygen Delivery Method Room Air Intake Visit Reasons: Compression Fracture Director Call Center Sales Required: No Accompanied by: Self / Same As Patient Allergies clopidogrel [From PLAVIX] Adverse Reaction (Unknown, Verified 05/15/23 09:25) Internal bleeding Tzstpvd-FRZ-FwU Reductase Inhibitor [NRPHKGL-XKN-XGQ REDUCTASE INHIBITOR] Adverse Reaction (Unknown, Verified 05/15/23 09:25) Leg stiffness HPI Compression Fracture HPI Details Patient is a pleasant 77 years old female with history of 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 Patient reports radicular symptoms started in April suddenly, without any inciting events. Reports she was able to walk and move faster prior to April. Today, she ambulates very slow, with antalgic gait and slight limping with the use of a cane. Per oncology, patient could have bone metastasis as her tumor marker remains elevated. Recent bone scan showed linear intense abnormal increased radiotracer activity is present at L5, most consistent with compression fracture, of indeterminate etiology, new since prior CT study done on 01/30/2023. Radiographic correlation is recommended. She has limited lumbar ROM and mild bending or flexion forward reproduces debilitating, shock-like and shooting pain into her posterior left lower extremity. Patient declined kyphoplasty. Denies previous physical therapy, spine surgery or injections or back bracing. Patient reports it is becoming difficult for her to do daily activities, care for herself, function normal or obtain adequate sleep due to significant pain and generalized weakness. She denies any fever, bladder or bowel incontinence or saddle anaesthesia. Onset 04/16/23 Location Low back pain with radiation and weakness in both legs, worse in left leg Duration One month, sudden pain since April, progressively worsening Characteristics of symptom or complaint Aching, shock like, cramping, radiating, numbness, tingling, stabbing Aggravating or associated factors Walking, standing, sitting, bending (cannot bend since April) Relieving factors Lifting left leg up, bending, walking, movements Treatment Bone scan,Tylenol, rest, declined kyphoplasty PFSH Medical History Anemia Anorexia Anticoagulated Atherosclerotic cardiovascular disease Blind right eye CAD (coronary artery disease) (11/07/08) Elevated CEA Frailty syndrome in geriatric patient Heart murmur History of cholelithiasis History of CVA (cerebrovascular accident) History of stroke History of tumor HLD (hyperlipidemia) (08/17/08) Nausea & vomiting Porcelain gallbladder Preoperative cardiovascular examination Protein calorie malnutrition Stress-induced cardiomyopathy Surgical History S/P partial hysterectomy Family History Father Prostate cancer Brother Myeloma Mother Lung cancer Social History Household Members: None Housing: Assisted Living Facility Are you a primary healthcare social worker to a significant other at home: No Do you presently have visiting nurse or other home services: No Alcohol intake: former Patient Tobacco Use Status: Former Tobacco user Quit Date: 1984 Tobacco use type: Cigarette Years Smoked: 45 service: No Current occupational status: retired Review of Systems Const All systems reviewed & are unremarkable except as noted in HPI and below Reports as per HPI, Denies body aches, Reports difficulty sleeping, Reports fatigue, Denies fever(s), Denies frequent falls, Reports malaise, Reports poor appetite, Reports weakness and Reports weight loss Card Denies chest pain with activity, Denies irregular heart rhythm, Denies lightheadedness, Denies dyspnea and Denies dyspnea on exertion Resp Denies cough, Denies dyspnea and Denies dyspnea on exertion Musc Reports tingling Neuro Denies frequent falls, Reports memory loss, Reports radicular pain, Denies Sensory deficit (Neuro), Reports tingling, Reports paresthesias and Reports weakness Psych Reports abnormal sleep pattern, Reports difficulty concentrating, Reports memory loss and Reports other (easily forgetful) Endo Reports fatigue Physical Exam Vital Signs: Last Vital Signs Pulse 80 05/15/23 09:19 BP 123/56 L 05/15/23 09:19 Pulse Ox 96 05/15/23 09:19 Oxygen Delivery Method Room Air 05/15/23 09:19 BMI result Body Mass Index 20.4 General: Appears afebrile. Alert and oriented, slow to responses. Mood and affect appropriate. Follows and participates in conversation appropriately. Respiratory effort is unlabored. No cough. Able to transition from sit to stand unassisted. Uses cane with ambulation. Ambulates with bilaterally normal heel strike and toe off. Back/Spine/Pelvis Other: Slow, antalgic gait with limping. Uses cane with ambulation. Limited back exam due to significant back pain. She cannot bend down due to shock like and shooting pain into her left lower extremity posteriorly. Partial lumbar extension and flexion reproduce severe back pain. Demonstrates 4/5 strength of quadriceps bilaterally as well as flexion/dorsiflexion of bilateral feet against resistance. 2+ pedal pulses bilaterally. Seated straight leg rise with dorsiflexion positive on the left. Diminished patellar and achilles reflexes bilaterally. Facet loading test positive bilaterally. Jeni sign +bilat. Mild groin pain with I/E hip rotations. Cervical Spine: pain with cervical ROM and No Cervical spine tenderness Thoracic/Lumbar Spine: thoracic and lumbar spine normal to inspection, No Thoracic/lumbar spine scar(s), Lasegue's sign positive on the left and localized, pain with thoraco-lumbar ROM, paraspinal muscle tenderness, thoraco- lumbar ROM limited, No thoracic spinal tenderness and lumbar spinal tenderness Pelvis: buttock tenderness on the left Sacroiliac joints: bilaterally tender to palpation Neuro Sensory Exam: No Sensory deficit (Neuro) Results Reviewed Results Reviewed: NM BONE SCAN OF THE WHOLE BODY 04/23/23 CLINICAL INFORMATION: Back pain. Suspected bone metastases. Colon cancer. COMPARISON: CT of the chest abdomen and pelvis done on 01/30/2023. TECHNIQUE: Multiple gamma scintillation camera images of the whole body were performed 2.5 hours following the intravenous administration of 21 mCi Tc-99m MDP. The radiotracer was injected through left antecubital superficial vein without complications. FINDINGS: In the head, no suspicious focal lesion. In the thoracic cage and upper extremities, solitary focal intense increased radiotracer activity is present along the anterior medial aspect of the likely right seventh rib. The remainder of the entire thoracic cage and both upper extremities otherwise appear unremarkable. In the spine, linear intense abnormal increased radiotracer activity is present at L5, most consistent with compression fracture, of indeterminate etiology, new since prior CT study done on 01/30/2023. Radiographic correlation is recommended. In the pelvis, no suspicious focal lesion. In the lower extremities, no suspicious focal lesion. No other definite bony abnormalities are noted. The urinary bladder and faint visualization of both kidneys are noted. IMPRESSION: 1. Linear intense abnormal increased radiotracer activity is present at L5, most consistent with compression fracture, new since prior CT of the abdomen and pelvis done on 01/30/2023, of indeterminate etiology. Radiographic correlation is recommended. 2. Solitary focal intense radiotracer activity is noted anteromedial aspect of likely right seventh rib, indeterminate in etiology. Radiographic correlation is recommended. Assessment & Plan Assessment & Plan (1) Compression fracture of L5 vertebra: Code(s): S32.050A - Wedge compression fracture of fifth lumbar vertebra, initial encounter for closed fracture (2) Lumbar degenerative disc disease: Code(s): M51.36 - Other intervertebral disc degeneration, lumbar region (3) Lumbar radiculopathy: Code(s): M54.16 - Radiculopathy, lumbar region (4) Lumbar spondylosis: Code(s): M47.816 - Spondylosis without myelopathy or radiculopathy, lumbar region Plan Recent bone scan showed linear intense abnormal increased radiotracer activity is present at L5, most consistent with compression fracture, of indeterminate etiology, new since prior CT study done on 01/30/2023. We will proceed with lumbar spine xray and MRI to confirm these findings and assess for neural integrity and compression. Patient declined kyphoplasty and most concerned about her limited back movements and progressive leg pain. Script provided for back brace. Patient reports she lives alone and would like to apply for ADMINISTRATIVE DIRECTOR services for assistance with ADLs and groceries and will follow up with her PCP regarding this. Script provided for lidocaine patches. Continue Tylenol as needed. Patient will return to the clinic or telehealth encounter to discuss results of the MRI and xray findings when it is done and consider interventional therapy as indicated. Patient is aware to call if pain worsens or if she develops any red flag symptoms to seek emergency care or call 911. Patient denies any cauda equina syndrome symptoms at this time. All questions were answered and the patient is in agreement with the treatment plan. Follow up for MRI/xray results and sooner as needed. Orders: Orders MR lumbar spine wo con 05/15/23 M47.816 - Spondylosis without myelopathy or radiculopathy, lumbar region, M51.36 - Other intervertebral disc degeneration, lumbar region, M54.16 - Radiculopathy, lumbar region, S32.050A - Wedge compression fracture of fifth lumbar vertebra, initial encounter for closed fracture XR lumbar spine 2-3V 05/15/23 M47.816 - Spondylosis without myelopathy or r adiculopathy, lumbar region, M51.36 - Other intervertebral disc degeneration, lumbar region, M54.16 - Radiculopathy, lumbar region, S32.050A - Wedge compression fracture of fifth lumbar vertebra, initial encounter for closed fracture Medications: New back brace As directed 1 ea 0RF lumbar support, L5 compression fracture M47.816 - Spondylosis without myelopathy or radiculopathy, lumbar region, M51.36 - Other intervertebral disc degeneration, lumbar region, M54.16 - Radiculopathy, lumbar region, S32.050A - Wedge compression fracture of fifth lumbar vertebra, initial encounter for closed fracture lidocaine 5% 1 patch topical DAILY 30 ea 1RF pain M47.816 - Spondylosis without myelopathy or radiculopathy, lumbar region, M51.36 - Other intervertebral disc degeneration, lumbar region, S32.050A - Wedge compression fracture of fifth lumbar vertebra, initial encounter for closed fracture Coding Level of Care Code New Pt Level 4 (18559) Diagnoses Compression fracture of L5 vertebra S32.050A Lumbar degenerative disc disease M51.36 Lumbar radiculopathy M54.16 Lumbar spondylosis M47.816
[2023-05-15 09:19] VITALS: BP 123/56; PULSE 80; O2SAT 96; BMI 20.4
== END 2023-05-15 10:04 | disposition home or self-care (01) ==
PROVIDERS: PCP Family Medicine; Visit Provider Nurse Practitioner Family
DX: M51.36 Other intervertebral disc degeneration, lumbar region (principal); S32.050A Wedge compression fracture of fifth lumbar vertebra, initial encounter for closed fracture; M54.16 Radiculopathy, lumbar region; M47.816 Spondylosis without myelopathy or radiculopathy, lumbar region
CPT/HCPCS: 99204

== ENCOUNTER → 2023-05-15 09:03 | Outpatient (BNVA) | payer MEDICARE, SELFPAY | PROVIDERS: PCP Family Medicine; Visit Provider Nurse Practitioner Family | DX: S32.050A Wedge compression fracture of fifth lumbar vertebra, initial encounter for closed fracture (principal); M51.36 Other intervertebral disc degeneration, lumbar region; M54.16 Radiculopathy, lumbar region; M47.816 Spondylosis without myelopathy or radiculopathy, lumbar region | CPT/HCPCS: 99202 ==

== ENCOUNTER 2023-11-13 09:12 | Outpatient (AMB) | payer MEDICARE, SELFPAY ==
--- NOTE | 2023-11-13 09:13 | A.OFFVIS_ITS ---
Intake Vital Signs 11/13/23 09:14 Height 5 ft 7 in BP 102/55 L Blood Pressure Location Lt brachial Position Sitting Intake Visit Reasons: erythematous lower back, biopsy Intake Note: This patient presents for an assessment for erythematous lower back, biopsy. Patient c/o; reports no complaints at this time. Radio Communications Superintendent Required: No Accompanied by: Other Relationship Allergies clopidogrel [From PLAVIX] Adverse Reaction (Unknown, Verified 11/13/23 09:22) Internal bleeding Ntllgfa-SFE-EpH Reductase Inhibitor [GUJKCNW-DFU-GNZ REDUCTASE INHIBITOR] Adverse Reaction (Unknown, Verified 11/13/23 09:22) Leg stiffness Medication List - Last Reconciled 11/13/23 by James Lowe MD acetaminophen 650 mg PO Q4H PRN aspirin 81 mg DAILY back brace As directed lidocaine 5% 1 patch topical DAILY HPI erythematous lower back, biopsy HPI Details 78-year-old female here because of a mas s on the left flank area. She says that she 1st noticed this about a month ago. She says that this has been increasing in size. She denies any bleeding or any pain before but this has become uncomfortable because of the significant increased in size. She denies any trauma to the area. She has chronic back pain from an old vertebral fracture and therefore has difficulty walking. She is generally able to ambulate but not for long distances. She has to use a cane with ambulation. She is able to drive but is mostly homebound. She is currently in a wheelchair but here in the office. She says she is able to drive herself to do food shopping. A close friend brings her to doctor's appointments. [facility] Medical History (Updated 11/13/23 @ 09:40 by James Lowe MD) Left flank mass History of stroke History of tumor Frailty syndrome in geriatric patient Atherosclerotic cardiovascular disease Stress-induced cardiomyopathy Preoperative cardiovascular examination Protein calorie malnutrition Anemia Elevated CEA Anticoagulated Heart murmur Nausea & vomiting Anorexia HLD (hyperlipidemia) (08/17/08) History of CVA (cerebrovascular accident) History of cholelithiasis CAD (coronary artery disease) (11/07/08) Blind right eye Porcelain gallbladder Surgical History S/P partial hysterectomy Family History Father Prostate cancer Brother Myeloma Mother Lung cancer Social History Household Members: None Housing: Assisted Living Facility Are you a primary clinical care manager to a significant other at home: No Do you presently have visiting nurse or other home services: No Alcohol intake: former Patient Tobacco Use Status: Former Tobacco user Quit Date: 1984 Tobacco use type: Cigarette Years Smoked: 46 service: No Current occupational status: retired Review of Systems Const Denies chills and Denies fever(s) Card Denies chest pain, Denies dyspnea and Reports dyspnea on exertion Resp Denies cough, Denies dyspnea and Reports dyspnea on exertion GI Denies hematochezia and Denies change in bowel habits Denies hematuria Musc Reports back pain, Reports myalgias, Reports arthralgias and Reports limited range of motion Neuro Denies focal weakness and Denies convulsions Psych Denies depression and Denies mood swings Physical Exam Vital Signs: Last Vital Signs BP 102/55 L 11/13/23 09:14 Const Other: On a wheelchair General: comfortable and no acute distress Orientation/consciousness: patient oriented x3 Neck Neck: Yes no lymphadenopathy Resp Effort & Inspection: normal respiratory effort Auscultation: clear to auscultation bilaterally Cardio Rhythm: regular rhythm GI Palpation (GI): Soft to palpation, nontender and no guarding Back/Spine/Pelvis Other: On the left flank area is note of a elevated mass, with smooth surface, some discoloration, about 4 by 3 cm in diameter but seems to be extending into the subcutaneous layer Neuro General: patient oriented x3 Assessment & Plan Assessment & Plan (1) Left flank mass: Code(s): R19.00 - Intra-abdominal and pelvic swelling, mass and lump, unspecified site Plan: She has this large left flank mass as described above. This is suspicious for a neoplastic process. Her brother had been diagnosed to have melanoma in the past. I therefore explained to her the option of proceeding with excision for diagnosis. I discussed the technique of this procedure. I reviewed the risks including but not limited to bleeding, infection, postop pain, as well as the benefits and alternatives. This will be done under monitored anesthesia care. She says she wants to proceed. I also explained to her to expect postoperatively. Coding Level of Care Code New Pt Level 3 (66181) Diagnoses Left flank mass R19.00
[2023-11-13 09:14] VITALS: BP 102/55
== END 2023-11-13 09:34 | disposition home or self-care (01) ==
PROVIDERS: PCP Family Medicine; Referring Provider Nurse Practitioner Family; Visit Provider Surgery
DX: R19.00 Intra-abdominal and pelvic swelling, mass and lump, unspecified site (principal)
CPT/HCPCS: 99214

== ENCOUNTER → 2023-11-13 09:12 | Outpatient (BNVA) | payer MEDICARE, SELFPAY | PROVIDERS: PCP Family Medicine; Referring Provider Nurse Practitioner Family; Visit Provider Surgery | DX: R19.00 Intra-abdominal and pelvic swelling, mass and lump, unspecified site (principal) | CPT/HCPCS: 99212 ==

== ENCOUNTER → 2023-11-14 14:37 | Outpatient (BNV) | payer MEDICARE, SELFPAY | PROVIDERS: PCP Family Medicine; Visit Provider Internal Medicine Cardiovascular Disease | DX: Z01.818 Encounter for other preprocedural examination (principal); R19.00 Intra-abdominal and pelvic swelling, mass and lump, unspecified site | CPT/HCPCS: 93010 ==

== ENCOUNTER 2023-11-18 10:41 | Day surgery (SDC) | payer MEDICARE, SELFPAY ==
[2023-11-13 14:34] VITALS: BMI 20.4
--- NOTE | 2023-11-14 | ECG_ITS ---
Test Reason : CVA/CMP/CAD - PREOP Blood Pressure : / mmHG Vent. Rate : 073 BPM Atrial Rate : 073 BPM P-R Int : 160 ms QRS Dur : 076 ms QT Int : 390 ms P-R-T Axes : 037 078 008 degrees QTc Int : 429 ms Normal sinus rhythm Normal ECG When compared with ECG of 10-AUG-2022 16:02, Non-specific change in ST segment in Anterolateral leads T wave inversion less evident in Inferior leads T wave inversion no longer evident in Anterior leads Referred By: Ofelia Dickerson Electronically Signed By:KATJA YAP MD
[2023-11-14 14:00] VITALS: BP 113/61; PULSE 80; RESP 16; O2SAT 96
[2023-11-14 14:05] VITALS: BMI 24.1
--- NOTE | 2023-11-14 14:13 | HO.ANESPROP2 ---
Documented by User: Ofelia Dickerson NP 11/17/23 09:23 HPI - Anesthesia Eval Consult details Narrative: 78yo F for Left Excision Flank Mass [place] [facility] [place]hx takatsubo. Chronically occluded RCA well collateralized by left system per 2019 cath. Hx CEA Last office visit 02/2023. Cardiac optimized for surgery if no new cardiac symptoms per workload. No recent illness No CP/SOB with limited activity. Has lumbar fx. 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 Protein calorie malnutrition Anemia Elevated CEA Heart murmur Anorexia HLD (hyperlipidemia) (08/17/08) History of cholelithiasis CAD (coronary artery disease) (11/07/08) Blind right eye Porcelain gallbladder Family History Family History Father Prostate cancer Brother Myeloma Mother Lung cancer Family history of problems with anesthesia: No Surgical History Surgical History History of carotid endarterectomy History of partial hysterectomy Hx of right hemicolectomy History of Problems with Anesthesia: No Social History Social History Household Members: None Housing: House Are you a primary healthcare translator to a significant other at home: No Do you presently have visiting nurse or other home services: No Alcohol intake: former Patient Tobacco Use Status: Former Tobacco user Quit Date: 1984 Tobacco use type: Cigarette Years Smoked: 45 Use of substances other than those prescribed or required for medical reasons: No Have you been hit, kicked, punched, or otherwise hurt by someone within the past year? If so, by whom?: No Are you DNR?: Yes Advance Directives: No Advance Directives Information Provided: Yes Advance Directives on File: Yes Advance Directives Date on File: 08/22/22 Recently lost weight without trying: No Eating poorly because of decreased appetite: No Nutrition Risks: Surgical patient >75years Poor oral hygiene: No service: No Current occupational status: retired Meds Allergies Allergy/AdvReac Type Severity Reaction Status Date / Time Vbkukhr-QUY-SaS Reductase AdvReac Severe Leg Verified 11/18/23 11:00 Inhibitor stiffness [EVXWLQP-NME-OYE REDUCTASE INHIBITOR] clopidogrel [From PLAVIX] AdvReac Intermediate Internal Verified 11/18/23 11:00 bleeding Home Medications Medication Instructions Recorded Confirmed Last Taken Type aspirin 81 mg tablet,delayed 81 mg DAILY 08/10/22 11/13/23 11/11/23 History release acetaminophen 325 mg tablet 650 mg PO Q4H PRN Pain 09/12/22 11/13/23 Unknown History lidocaine 5 % topical patch 1 patch topical DAILY PRN pain 11/13/23 11/13/23 Unknown History Exam Height,Weight and Vital Signs: Height 5 ft 5 in Weight 65.771 kg Last Vital Signs Pulse 80 11/14/23 14:00 Resp 16 11/14/23 14:00 BP 113/61 11/14/23 14:00 Pulse Ox 96 11/14/23 14:00 O2 Del Method Room Air 11/14/23 14:00 Pertinent Lab Results Pertinent Lab Results: Lab Results 11/14/23 Range/Units 14:39 WBC 7.6 (4.8-10.8) X10*3/uL RBC 4.34 (4.20-5.50) X10*6/uL Hgb 13.8 (12.0-16.0) g/dl Hct 42.7 (37.0-47.0) % MCV 98.4 H (80.0-98.0) fL MCH 31.8 (27.0-33.0) pg MCHC 32.3 (31.0-35.0) g/dl RDW 13.1 (11.0-16.0) % Plt Count 188 (160-400) X10*3/uL MPV 10.5 (9.4-12.3) fL Absolute Nucleated RBC 0.000 (0.0-0.012) X10*3/uL Nucleated RBC % (auto) 0.0 (0.0-0.2) /100WBC Sodium 139 (135-145) mmol/L Potassium 4.3 (3.3-5.1) mmol/L Chloride 107 (96-108) mmol/L Carbon Dioxide 27 (22-29) mmol/L Anion Gap 9 L (12-20) BUN 24 H (9-16) mg/dL Creatinine 0.99 (0.5-1.4) mg/dL Estim Creat Clear Calc 42.8 Estimated GFR 54 Random Glucose 94 (60-115) mg/dL Calcium 9.4 (8.4-10.2) mg/dL Narrative Narrative: EKG 11/2023 Vent. Rate : 073 BPM Atrial Rate : 073 BPM P-R Int : 160 ms QRS Dur : 076 ms QT Int : 390 ms P-R-T Axes : 037 078 008 degrees QTc Int : 429 ms Normal sinus rhythm Normal ECG When compared with ECG of 10-AUG-2022 16:02, Non-specific change in ST segment in Anterolateral leads T wave inversion less evident in Inferior leads T wave inversion no longer evident in Anterior leads ECHO 2021 Conclusions: - The left ventricular systolic function is normal. The calculated ejection fraction is 64% by biplane method. - The basal inferior, mid inferior, and apical septum segments are hypokinetic. - No obvious valvular pathology seen on this study. 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 Protein calorie malnutrition Anemia Elevated CEA Heart murmur Anorexia HLD (hyperlipidemia) (08/17/08) History of cholelithiasis CAD (coronary artery disease) (11/07/08) Blind right eye Porcelain gallbladder Family History Family History Father Prostate cancer Brother Myeloma Mother Lung cancer Surgical History Surgical History History of carotid endarterectomy History of partial hysterectomy Hx of right hemicolectomy Social History Social History Household Members: None Housing: House Are you a primary healthcare translator to a significant other at home: No Do you presently have visiting nurse or other home services: No Alcohol intake: former Patient Tobacco Use Status: Former Tobacco user Quit Date: 1984 Tobacco use type: Cigarette Years Smoked: 45 Use of substances other than those prescribed or required for medical reasons: No Have you been hit, kicked, punched, or otherwise hurt by someone within the past year? If so, by whom?: No Are you DNR?: Yes Advance Directives: No Advance Directives Information Provided: Yes Advance Directives on File: Yes Advance Directives Date on File: 08/22/22 Recently lost weight without trying: No Eating poorly because of decreased appetite: No Nutrition Risks: Surgical patient >75years Poor oral hygiene: No service: No Current occupational status: retired [employer] Allergies Allergy/AdvReac Type Severity Reaction Status Date / Time Uekmknc-HDB-LsD Reductase AdvReac Severe Leg Verified 11/18/23 11:00 Inhibitor stiffness [WSKOWYM-RUS-RII REDUCTASE INHIBITOR] clopidogrel [From PLAVIX] AdvReac Intermediate Internal Verified 11/18/23 11:00 bleeding Home Medications Medication Instructions Recorded Confirmed Last Taken Type aspirin 81 mg tablet,delayed 81 mg DAILY 08/10/22 11/13/23 11/11/23 History release acetaminophen 325 mg tablet 650 mg PO Q4H PRN Pain 09/12/22 11/13/23 Unknown History lidocaine 5 % topical patch 1 patch topical DAILY PRN pain 11/13/23 11/13/23 Unknown History Assessment and Plan Assessment Anesthesia Assessment: Chart Reviewed Final Anesthetic Review NPO: Yes ASA Class: III Final Preanesthetic Review: No Changes in Pt Med Stat, Meds/Allgs Chart Reviewed, Consent Obtained/Reviewed, Anes Risks/Benef Reviewed and DNR Form (If Appl.) (liited resuscitation ) Patient Risk: Intermediate Procedure Risk: Low Anesthetic Plan Anesthetic Plan: GA, MAC: and Agree w/ Assess. and Plan Disposition: Standard PACU
[2023-11-14 15:35] LABS: Hematocrit 42.7 % (37.0-47.0); Hemoglobin 13.8 g/dl (12.0-16.0); Mean Corpuscular HGB Conc 32.3 g/dl (31.0-35.0); Mean Corpuscular Hemoglobin 31.8 pg (27.0-33.0); Mean Corpuscular Volume 98.4 fL (80.0-98.0); Mean Platelet Volume 10.5 fL (9.4-12.3); Platelet Count 188 X10*3/uL (160-400); Red Blood Count 4.34 X10*6/uL (4.20-5.50); Red Cell Distribution Width 13.1 % (11.0-16.0); White Blood Count 7.6 X10*3/uL (4.8-10.8)
[2023-11-14 16:32] LABS: Anion Gap 9 (12-20); Blood Urea Nitrogen 24 mg/dL (9-16); Calcium 9.4 mg/dL (8.4-10.2); Carbon Dioxide 27 mmol/L (22-29); Chloride 107 mmol/L (96-108); Creatinine Clr Calc Pharmacy 42.8; Estimated Glomerular Filt Rate 54; Glucose Random 94 mg/dL (60-115); Potassium 4.3 mmol/L (3.3-5.1); Sodium 139 mmol/L (135-145)
[2023-11-18] MEDS: Lactated Ringers 1,000 ML 50 ML IVCONT (11:16)
[2023-11-18 11:25] VITALS: BP 152/70; PULSE 71; RESP 18; TEMP 36.7; O2SAT 96
--- NOTE | 2023-11-18 13:43 | W.PM.OPN ---
Operative Note Operative Note Date of Service: 11/18/23 Narrative: Preop diagnosis: Left flank mass Postop diagnosis: Left flank mass Procedure: Excision of left flank mass under anesthesia with defect measuring 7 cm x 6 cm by 3.5 cm deep Surgeon: James Lowe MD licensed loan officer assistant: SANTIAGO Mars The patient is a 78 year female with note of a large left flank mass on the skin that seemed to extend into the subcutaneous layer. This measured about 4 x 3 cm, smooth surface and extending really above the skin level. She understood the technique of excision under anesthesia and she was aware of the risks, benefits, and alternatives. She was brought to the operating room and placed in right lateral decubitus position under monitored anesthesia care. The area of the mass on the left flank was prepped and draped. Lidocaine 1% was used for local anesthesia. I marked my planned line of incision. I made the incision using blade 15 with at least 1 cm margins for abnormal looking skin. I carried this down with electrocautery through the full-thickness of the skin and subcutaneous fat. We had to go for a thick amount of subcutaneous fat and we eventually had a defect measuring about 7 cm long, about 6 cm wide and about 3.5 cm deep in the subcutaneous layer I irrigated. I marked the superior and lateral margins of the specimen We reapposed the thick subcutaneous layer with Polysorb 3-0 interrupted sutures. Skin closure was achieved with nylon 3-0 simple interrupted sutures. Dressings were applied. The procedure was completed The patient tolerated procedure well. There were no immediate complications. Initial final counts of sponges and instruments were correct. Estimated blood loss was about 10 cc The patient was transferred to the recovery room with stable vital signs.
[2023-11-18 14:10] VITALS: BP 142/60; PULSE 75; RESP 20; TEMP 36.7; O2SAT 100
[2023-11-18 14:25] VITALS: BP 179/76; PULSE 75; RESP 20; O2SAT 98
[2023-11-18] MEDS: oxyCODONE HCl Immed Release 5 MG TABLET PO (14:25)
[2023-11-18 14:40] VITALS: BP 165/85; PULSE 73; RESP 18; O2SAT 98
[2023-11-18 14:55] VITALS: BP 157/75; PULSE 73; RESP 18; TEMP 36.8; O2SAT 98
== END 2023-11-18 15:45 | disposition home or self-care (01) ==
PROVIDERS: Nurse Practitioner; PCP Family Medicine; Visit Provider Surgery
PROC: (CPT 11606; principal; 2023-11-18 13:00)
DX: C79.89 Secondary malignant neoplasm of other specified sites (principal); Z85.038 Personal history of other malignant neoplasm of large intestine; Z90.49 Acquired absence of other specified parts of digestive tract; G89.29 Other chronic pain; M54.50 Low back pain, unspecified; R54 Age-related physical debility; I25.10 Atherosclerotic heart disease of native coronary artery without angina pectoris; Z79.82 Long term (current) use of aspirin; Z86.73 Personal history of transient ischemic attack (TIA), and cerebral infarction without residual deficits; Z79.899 Other long term (current) drug therapy; Z99.89 Dependence on other enabling machines and devices; Z87.891 Personal history of nicotine dependence
CPT/HCPCS: 11606; 36415; 80048; 85027; 88304; 88305; 88341; 88342; 93005; J0131; J0665; J0690; J2371; J2704; J3010

== ENCOUNTER → 2023-11-18 10:41 | Outpatient (BNV) | payer MEDICARE, SELFPAY | PROVIDERS: PCP Family Medicine; Visit Provider Surgery | DX: C79.2 Secondary malignant neoplasm of skin (principal); C18.9 Malignant neoplasm of colon, unspecified | CPT/HCPCS: 11606 ==

== ENCOUNTER → 2023-11-20 14:53 | Outpatient (BNVA) | payer MEDICARE, SELFPAY | PROVIDERS: PCP Family Medicine; Visit Provider Surgery | DX: Z48.00 Encounter for change or removal of nonsurgical wound dressing (principal) | CPT/HCPCS: 99211 ==

== ENCOUNTER 2023-12-01 10:19 | Outpatient (AMB) | payer MEDICARE, SELFPAY ==
--- NOTE | 2023-12-01 10:34 | A.OFFVIS_ITS ---
Intake Vital Signs 12/01/23 10:42 BP 89/52 L Blood Pressure Location Lt brachial Position Sitting Pulse 83 Intake Visit Reasons: S/P excision left flank mass Intake Note: Patient is seen in office for post op assessment post excision of left flank mass. Pt c/o: reports no complaints at this time. House Calls Nurse Practitioner Required: No Accompanied by: Friend Allergies Upolxcl-LUC-UnO Reductase Inhibitor [ZDZCXOC-TQA-QBJ REDUCTASE INHIBITOR] Ad verse Reaction (Severe, Verified 12/01/23 10:42) Leg stiffness clopidogrel [From PLAVIX] Adverse Reaction (Intermediate, Verified 12/01/23 10:42) Internal bleeding HPI S/P excision left flank mass HPI Details She underwent excision of a large left flank mass 2 weeks ago and is here for postop visit. She says she is doing well and denies significant complaints. 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 Protein calorie malnutrition Anemia Elevated CEA Heart murmur Anorexia HLD (hyperlipidemia) (08/17/08) History of cholelithiasis CAD (coronary artery disease) (11/07/08) Blind right eye Porcelain gallbladder Surgical History History of excision of mass (11/18/23) History of carotid endarterectomy History of partial hysterectomy Hx of right hemicolectomy Family History Father Prostate cancer Brother Myeloma Mother Lung cancer Social History Household Members: None Housing: House Are you a primary career services director to a significant other at home: No Do you presently have visiting nurse or other home services: No Alcohol intake: former Patient Tobacco Use Status: Former Tobacco user Quit Date: 1984 Tobacco use type: Cigarette Years Smoked: 45 Advance Directives Date on File: 08/22/22 service: No Current occupational status: retired Review of Systems Const Denies chills and Denies fever(s) Card Denies chest pain Resp Denies cough Physical Exam Vital Signs: Last Vital Signs Pulse 83 12/01/23 10:42 BP 89/52 L 12/01/23 10:42 Const Other: On a wheelchair, appears comfortable General: no acute distress Resp Effort & Inspection: normal respiratory effort Back/Spine/Pelvis Other: Left flank incision is well healed, sutures intact, not infected Assessment & Plan Assessment & Plan (1) 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 This incision is well healed. I removed all her sutures Unfortunately, the path report shows adenocarcinoma likely metastatic from her previous colon cancer. I explained to her this path report. I will refer her to the oncologist again so that they can have a talk about her options. She did state that she refused chemotherapy when she was 1st diagnosed with colon cancer more than a year ago. I told her to call my office if she has any questions down the line. 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
[2023-12-01 10:42] VITALS: BP 89/52; PULSE 83
== END 2023-12-01 11:07 | disposition home or self-care (01) ==
PROVIDERS: PCP Family Medicine; Visit Provider Surgery
DX: C18.9 Malignant neoplasm of colon, unspecified (principal); C79.2 Secondary malignant neoplasm of skin
CPT/HCPCS: 99213

== ENCOUNTER → 2023-12-01 10:19 | Outpatient (BNVA) | payer MEDICARE, SELFPAY | PROVIDERS: PCP Family Medicine; Visit Provider Surgery | DX: Z48.817 Encounter for surgical aftercare following surgery on the skin and subcutaneous tissue (principal); C79.2 Secondary malignant neoplasm of skin; C18.9 Malignant neoplasm of colon, unspecified | CPT/HCPCS: 99212 ==

== ENCOUNTER 2024-08-11 15:20 | Emergency (ER) | payer MEDICARE, SELFPAY ==
--- NOTE | ~2024-08-11 | CT_ITS ---
EXAMINATION: CT THORACIC SPINE WITHOUT CONTRAST CLINICAL INFORMATION: Lytic lesions. Metastatic disease. COMPARISON: None TECHNIQUE: Multidetector helical imaging of the thoracic spine was obtained without intravenous contrast. Multiple axial reformats and coronal/sagittal reconstructions were created the technologist workstation for review. This CT examination was performed using dose optimization techniques as appropriate, variously including the following: *Automated exposure control. *Adjustment of mA and/or kV according to patient size (this includes techniques or standardized protocols for targeted exams where dose is matched to indication/reason for exam; i.e. extremities or head). *Use of iterative reconstruction technique. DLP: 479 mGy-cm FINDINGS: Mild right convex curvature of the thoracic spine. Mildly accentuated kyphosis of the thoracic spine. Compression deformity of the T3 vertebral body with 30% loss of vertebral body height. Buckling of the anterior wall of the T3 vertebral body. No evidence of additional acute fracture or traumatic subluxation. The remaining vertebral body heights are maintained. Moderate degenerative disc disease from T6-T9. Mild degenerative disc disease at all additional levels. No suspicious lytic or sclerotic osseous lesions. No significant abnormalities of the paraspinal musculature. Moderate centrilobular emphysema. 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 Coronary artery calcifications: Present - moderate. Limited evaluation of the intrathoracic structures without significant abnormalities. The descending thoracic aorta is of normal contour and caliber. AXIAL SPINAL LEVELS: Mild multilevel posterior disc herniations. There is moderate multilevel facet joint arthropathy. There is no demonstrated neural foraminal or spinal canal stenosis. CT/CT thoracic spine wo IV con IMPRESSION: 1. Compression deformity of the T3 vertebral body with 30% loss of vertebral body height. 2. No evidence of additional acute fracture or traumatic subluxation of the thoracic spine. 3. 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 4. A nonspecific 2 cm cystic structure between the left subclavian and common carotid arteries has increased in size compared to 2022. Electronically signed by: Gil Somers DO 08/11/2024 08:50 PM EDT
[2024-08-11 15:31] VITALS: BP 156/76; BP 176/104; PULSE 82; PULSE 84; RESP 16; TEMP 36.8; O2SAT 95; O2SAT 98; BMI 24.7
[2024-08-11 15:36] VITALS: BP 156/76; PULSE 82; RESP 16; TEMP 36.8; O2SAT 98
[2024-08-11] MEDS: oxyCODONE HCl Immed Release 5 MG TABLET PO ×2 (17:10→18:04)
--- NOTE | 2024-08-11 17:13 | PC.NURSE ---
Pt receives hospice care via [facility]. Asset Protection Representative Yvonne is present at bedside with family to formulate a plan. Yvonne relays to this this RN that Pt is no longer interested in living alone. She would like to begin residing at the [facility] following todays care. Should she be d/c'd and cannot report the the [facility] immediately, her Nephew will stay with her at her home until she can be received.
--- NOTE | 2024-08-11 17:18 | ED.BACK ---
HPI - Back Pain/Injury General Chief Complaint: Back Pain/Injury Stated Complaint: Lower back pain 08/12 1xday, cancer no trmt Time Seen by Provider: 08/11/24 16:18 Source: patient Limitations: no limitations History of Present Illness ED Provider: Sigrid Moy PA-C HPI Narrative: 79-year-old female with known colon carcinoma with metastatic disease to her skin, currently on hospice, known arthritis with degenerative changes to her lumbar spine, presents with back pain. Patient states she developed spontaneous thoracic back pain today. Pain is across her entire upper mid back, described as sharp and severe, is nonradiating. Patient has been using Tylenol without relief from symptoms. Patient states she has morphine at home, however she has not had to use it. Denies fall, overuse injury, new heavy lifting. Denies fever, history of kidney stones, dysuria, hematuria. Related Data Home Medications ?Medication ?Instructions ?Recorded ?Confirmed aspirin 81 mg tablet,delayed 81 mg DAILY 08/10/22 02/13/24 release acetaminophen 325 mg tablet 650 mg PO Q4H PRN Pain 09/12/22 02/13/24 lidocaine 5 % topical patch 1 patch topical DAILY PRN pain 11/13/23 02/13/24 Previous Rx's ?Medication ?Instructions ?Recorded back brace #1 ea 05/15/23 tramadol 50 mg tablet 50 mg PO Q6H PRN pain #12 tabs 11/18/23 Allergies Allergy/AdvReac Type Severity Reaction Status Date / Time Ujceujc-MVO-MjF Reductase AdvReac Severe Leg Verified 08/11/24 15:33 Inhibitor stiffness [KZKETRA-OLW-LHL REDUCTASE INHIBITOR] clopidogrel [From PLAVIX] AdvReac Intermediate Internal Verified 08/11/24 15:33 bleeding Review of Systems Review of Systems: Yes all other systems are reviewed and are negative Constitutional: Constitutional: Denies fever(s) Cardiovascular: Cardiovascular: Denies chest pain and Denies dyspnea Respiratory: Respiratory: Denies dyspnea Gastrointestinal: Gastrointestinal: Denies abdominal pain, Denies nausea and Denies vomiting Genitourinary: Genitourinary: Denies dysuria FOR[facility]LY [facility], [facility] Past Medical History Attestation statement: The following information was validated with the patient. 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 Protein calorie malnutrition Anemia Elevated CEA Heart murmur Anorexia HLD (hyperlipidemia) (08/17/08) History of cholelithiasis CAD (coronary artery disease) (11/07/08) Blind right eye Porcelain gallbladder Surgical History (Updated 02/13/24 @ 17:21 by Cari Quiñonez MD) History of excision of mass (11/18/23) History of carotid endarterectomy History of partial hysterectomy Hx of right hemicolectomy Family History Family History Father Prostate cancer Brother Myeloma Mother Lung cancer Social History Social History Household Members: None Housing: House Are you a primary resident care assistant to a significant other at home: No Do you presently have visiting nurse or other home services: No Alcohol intake: former Patient Tobacco Use Status: Former Tobacco user Tobacco use type: Cigarette Years Smoked: 45 Smoked in Last 30 Days: No Use of substances other than those prescribed or required for medical reasons: No Advance Directives: Yes Advance Directives on File: Yes Advance Directives Date on File: 02/15/24 Do you have a plan to hurt others: No Plan service: No Current occupational status: retired Physical Exam Vital Signs: Vital Signs: Last Vital Signs Temp 99.2 F 08/11/24 17:52 Pulse 72 08/11/24 17:52 Resp 15 08/11/24 20:17 BP 169/73 H 08/11/24 17:52 Pulse Ox 98 08/11/24 17:52 O2 Del Method Room Air 08/11/24 17:52 BMI result Body Mass Index 24.7 Const: Other: Alert Orientation/consciousness: patient oriented x3 HEENT: Other: Dry oral mucosa Resp: Effort & Inspection: normal respiratory effort Cardio: Other: Normal peripheral perfusion Back/Spine/Pelvis: Other: Pain elicited with movement of torso, is nonfocal Skin: Other: Warm dry no rash Neuro: Other: Globally weak it is nonfocal General: patient oriented x3, no focal motor deficits and CN's II-XI intact bilaterally Psych: Other: Cooperative Course Reevaluation(s) Reevaluation #1: Since the onset of this acute pain, the patient is unable to ambulate at her baseline. As it is, she has gait instability and uses a walker, she is very unsteady on her feet. The family made an error and coming to the emergency department, they should have reached out to hospice care first. Our rn field case manager spoke with the family's hospice nurse. They have a physical bed for her tomorrow, transport will be arranged in the morning, in the meantime the patient will remain a physician obs in the emergency department while we manage her discomfort. The rn field case manager on duty in the morning has a note to initiate transport with the facility. Medications Administered Discontinued Medications Generic Name Dose Route Start Last Admin Trade Name Freq PRN Reason Stop Dose Admin Methocarbamol 750 mg 08/11/24 19:32 08/11/24 20:08 Methocarbamol 750 Mg Tablet PO 08/11/24 19:33 750 mg ONCE ONE Administration Oxycodone HCl 5 mg 08/11/24 16:24 08/11/24 17:10 Oxycodone Hcl Immed Release 5 Mg Tablet PO 08/11/24 16:25 5 mg ONCE ONE Administration Oxycodone HCl 5 mg 08/11/24 17:59 08/11/24 18:04 Oxycodone Hcl Immed Release 5 Mg Tablet PO 08/11/24 18:00 5 mg ONCE ONE Administration Medical Decision Making Medical Decision Making MDM Narrative: 79-year-old female with known colon carcinoma with metastatic disease to her skin, currently on hospice, known arthritis with degenerative changes to her lumbar spine, presents with back pain. Patient states she developed spontaneous thoracic back pain today. Pain is across her entire upper mid back, described as sharp and severe, is nonradiating. Patient has been using Tylenol without relief from symptoms. Patient states she has morphine at home, however she has not had to use it. Denies fall, overuse injury, new heavy lifting. Denies fever, history of kidney stones, dysuria, hematuria. Problem: Metastatic colon cancer, age , underlying arthritis History: Per patient I have considered the following differential diagnoses: Metastatic disease to the spine, lytic lesion, compression fracture, renal colic, pyelonephritis Plan: The patient is only having pain, given the acute onset, it is suspicious that she may be developing metastatic disease to the spine. We will order a CT, we will give oxycodone for her pain. Thought about renal colic, however presentation is not consistent with passing a stone. And she has no related symptoms. Likewise, thought about pyelonephritis, however she is afebrile, and again has no dysuria. There is no indication to obtain labs at this time. I have independently reviewed the following tests: CTs thoracic spine:CT THORACIC SPINE WITHOUT CONTRAST CLINICAL INFORMATION: Lytic lesions. Metastatic disease. COMPARISON: None TECHNIQUE: Multidetector helical imaging of the thoracic spine was obtained without intravenous contrast. Multiple axial reformats and coronal/sagittal reconstructions were created the technologist workstation for review. This CT examination was performed using dose optimization techniques as appropriate, variously including the following: *Automated exposure control. *Adjustment of mA and/or kV according to patient size (this includes techniques or standardized protocols for targeted exams where dose is matched to indication/reason for exam; i.e. extremities or head). *Use of iterative reconstruction technique. DLP: 479 mGy-cm FINDINGS: Mild right convex curvature of the thoracic spine. Mildly accentuated kyphosis of the thoracic spine. Compression deformity of the T3 vertebral body with 30% loss of vertebral body height. Buckling of the anterior wall of the T3 vertebral body. No evidence of additional acute fracture or traumatic subluxation. The remaining vertebral body heights are maintained. Moderate degenerative disc disease from T6-T9. Mild degenerative disc disease at all additional levels. No suspicious lytic or sclerotic osseous lesions. No significant abnormalities of the paraspinal musculature. Moderate centrilobular emphysema. 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 Coronary artery calcifications: Present - moderate. Limited evaluation of the intrathoracic structures without significant abnormalities. The descending thoracic aorta is of normal contour and caliber. AXIAL SPINAL LEVELS: Mild multilevel posterior disc herniations. There is moderate multilevel facet joint arthropathy. There is no demonstrated neural foraminal or spinal canal stenosis. CT/CT thoracic spine wo IV con IMPRESSION: 1. Compression deformity of the T3 vertebral body with 30% loss of vertebral body height. 2. No evidence of additional acute fracture or traumatic subluxation of the thoracic spine. 3. 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 4. A nonspecific 2 cm cystic structure between the left subclavian and common carotid arteries has increased in size compared to 2022. Electronically signed by: Gil Somers DO 08/11/2024 08:50 PM EDT RP Discharge Plan Discharge Clinical Impression: Compression fracture of T3 vertebra Patient Disposition: Still a Patient Prescriptions: No Action acetaminophen 325 mg Tablet 650 mg PO Q4H PRN (Reason: Pain) aspirin 81 mg Tablet,Delayed Release (Dr/Ec) 81 mg DAILY lidocaine 5 % adhesive patch,medicated 1 patch topical DAILY PRN (Reason: pain) tramadol 50 mg tablet 50 mg PO Q6H PRN (Reason: pain) Qty: 12 0RF (DME) back brace Misc See Rx Instructions .Route Qty: 1 0RF Rx Instructions: As directed Print Language: Malay
[2024-08-11 17:52] VITALS: BP 169/73; PULSE 72; RESP 14; TEMP 37.3; O2SAT 98
--- NOTE | 2024-08-11 19:30 | MHC.EDTECH ---
This tech took over care of patient at 1900,rounds completed,patient s family at bedside,call guzman in reach
--- NOTE | 2024-08-11 19:54 | MHC.CM.ED ---
Kimmy HENDERSON spoke with CM regarding this patient. Pt is in hospice. Increasing pain today. Family sent patient to ED, did not call hospice. Pt is scheduled for admission to [facility] in [place] tomorrow, 08/13. In process of completing paperwork. Requesting that patient be admitted to obs for pain management, with discharge to [facility] tomorrow morning. CM to call [facility] in the morning. [phone] #3 Yvonne-hospice volunteer coordinator. Per Yvonne, patient has been in hospice since April. Will resume hospice when patient admitted to [facility]. Requesting call in the morning to arrange time for CM to arrange transport to their facility. Above information shared with Kimmy HENDERSON. CM Informed Kimmy that she can admit to observation for pain management. Kimmy would like to keep patient in Physician Obs for pain management pending discharge to [facility] in the morning.
[2024-08-11] MEDS: methocarbamoL 750 MG TABLET PO ×2 (20:08→21:30)
--- NOTE | 2024-08-11 20:15 | PC.NURSE ---
this rn assumed care of pt, pt a&ox4. respirations even and unlabored. vss. pt medicated per jan, tolerated well with water. pure wick in place for comfort. plan for hospital bed. family at bedside.
[2024-08-11 20:17] VITALS: RESP 15
--- NOTE | 2024-08-11 20:50 | PC.NURSE ---
pt transferred to hospital bed for comfort.
--- NOTE | 2024-08-11 21:00 | MHC.EDTECH ---
Patient placed in a hospital bed for comfort,patient has a pure wick in place to keep patient clean and dry,family at bedside call guzman in reach
--- NOTE | 2024-08-11 21:08 | MHC.EDTECH ---
called [facility] due to scans not being read for many hours
[2024-08-11] MEDS: Acetaminophen 325 MG TABLET 975 MG PO (21:29)
--- NOTE | 2024-08-11 21:34 | PC.NURSE ---
pt medicated per mar, pt tolerated well with water.
[2024-08-11 23:31] VITALS: PULSE 60; RESP 15; O2SAT 97
--- NOTE | 2024-08-11 23:31 | PC.NURSE ---
pt allowed to sleep, respirations even and unlabored
[2024-08-12 00:32] VITALS: PULSE 66; RESP 16; O2SAT 98
--- NOTE | 2024-08-12 00:33 | MHC.EDTECH ---
Patient drank some garo cassie ,patient is resting comfortably,resp rate wnl,patient is clean and dry,call guzman in reach
[2024-08-12] MEDS: oxyCODONE HCl Immed Release 5 MG TABLET 10 MG PO (01:58)
[2024-08-12 02:00] VITALS: PULSE 68; RESP 14; O2SAT 98
--- NOTE | 2024-08-12 02:32 | PC.NURSE ---
family member phone numbers- nephhai Sandoval [phone] niece- Melissa [phone]
--- NOTE | 2024-08-12 03:16 | PC.NURSE ---
pt given gingerale per request.pt denies pain at this time.
[2024-08-12] MEDS: Ondansetron ODT 4 MG TAB.RAPDIS TRANSLINGU ×2 (03:31→10:39)
--- NOTE | 2024-08-12 03:32 | PC.NURSE ---
pt noted to be throwing up at this time, per verbal order, zofran given.pt tolerated well.
[2024-08-12 03:41] LABS: Glucose, Whole Blood 93 mg/dL (60-115)
--- NOTE | 2024-08-12 04:33 | PC.NURSE ---
pt reporting still feeling nauseous and spitting up,per provider, place verbal order.
[2024-08-12] MEDS: Metoclopramide HCl 10 MG TABLET PO (04:39)
[2024-08-12 05:30] VITALS: BP 178/73; PULSE 66; RESP 14; TEMP 36.7; O2SAT 98
--- NOTE | 2024-08-12 05:50 | MHC.EDTECH ---
Hourly rounds and vitals completed,emptied 300MLS from canister, patient is clean and dry, resting comfortably,call guzman in reach
--- NOTE | 2024-08-12 08:15 | PC.NURSE ---
Pt sitting up in bed with breakfast tray. Denies need for any nausea or pain medication at this time, reports she is comforable.
--- NOTE | 2024-08-12 09:36 | PHA.MEDREC ---
Addendum entered by Darnell Luevano [facility] 08/12/24 10:27: MED REC CHECKED BY [facility] Addendum entered by Emerson Michael 08/12/24 10:25: Patient taking Midrodine 2.5mg tabs not 2.4mg, typo on my end. Original Note: Pharmacy Consult ? Medication Reconciliation Pharmacy has completed the medication reconciliation. Utilized list from Hospice. Only have Acetaminophen 325mg 1 Q6H PRN for Pain and Midrodine 2.4mg tabs 1 tab TID on the list.
--- NOTE | 2024-08-12 09:36 | MHC.CM.ED ---
Addendum entered by Mary Ruiz 08/12/24 10:34: Jaime made aware via telephone at [phone]. Addendum entered by Mary Ruiz 08/12/24 10:08: Received return telephone call from [facility]. Patient can leave for [facility] at 1pm. Szuy DENG booked. [facility] with chart. Patient, Lidya IBRAHIM and Fely HENDERSON aware. Original Note: Patient remains in ER overflow. Spoke with [facility]. Waiting for return call from admissions. Continue to monitor for d/c needs.
[2024-08-12] MEDS: oxyCODONE HCl Immed Release 5 MG TABLET PO (12:23)
[2024-08-12 12:58] VITALS: BP 134/65; PULSE 75; RESP 16; TEMP 36.7; O2SAT 97
[2024-08-12 13:24] VITALS: BP 134/65; PULSE 75; RESP 18; TEMP 36.7; O2SAT 97
== END 2024-08-12 13:31 | disposition other institution (70) ==
PROVIDERS: Emergency Provider Internal Medicine; PCP Family Medicine
DX: M48.54XA Collapsed vertebra, not elsewhere classified, thoracic region, initial encounter for fracture (principal); M54.6 Pain in thoracic spine; E78.5 Hyperlipidemia, unspecified; C18.9 Malignant neoplasm of colon, unspecified; D64.9 Anemia, unspecified; Z86.73 Personal history of transient ischemic attack (TIA), and cerebral infarction without residual deficits; Z87.891 Personal history of nicotine dependence
CPT/HCPCS: 72128; 82947; 99284; 99285